=== PATIENT | female | born 1975 | race Caucasian/White ===

== ENCOUNTER 2016-09-17 16:07 | Emergency (ER) | payer OTHER ==
[2016-09-17 16:42] VITALS: BP 134/90
--- NOTE | 2016-09-17 16:42 | UC ---
Respiratory Complaint HPI - HPI Summary HPI Summary: Hx of diabetes, she presents with a week for cough, fever, chills, sinus pressure headache and dizziness. patient states she is normally tachycardic, and takes metoprolol for it - History of Current Complaint Stated Complaint: COUGH/SORE THROAT/CONGESTION Time Seen by Provider: 09/17/16 16:27 Hx Obtained From: Patient Hx Last Menstrual Period: 11/20/15 ?: No Onset/Duration: Sudden Onset, Lasting Days Timing: Constant Severity Initially: Moderate Severity Currently: Moderate Character: Cough: Productive Aggravating Factors: Deep Breaths, Recumbent Position Alleviating Factors: Nothing Associated Signs And Symptoms: Positive: Fever, Chills, Wheezing, URI, Nasal Congestion - Risk Factors Pulmonary Embolism Risk Factors: Negative - Allergies/Home Medications Allergies/Adverse Reactions: Allergies Allergy/AdvReac Type Severity Reaction Status Date / Time Levofloxacin [From Levaquin] Allergy Hives Verified 09/17/16 16:42 Sulfa Antibiotics Allergy Vomiting Verified 09/17/16 16:42 PMH/Surg Hx/FS Hx/Imm Hx Previously Healthy: Yes Endocrine History Of: Reports: Diabetes - type 2 - Surgical History Surgical History: Yes Surgery Procedure, Year, and Place: , gallbladder removal, stents in her kidney for stones. - Family History Known Family History: Positive: Blood Disorder - several members with factor V Leiden - Social History Alcohol Use: None Substance Use Type: None Smoking Status (MU): Never Smoked Tobacco Review of Systems Constitutional: Fever, Fatigue Skin: Negative Eyes: Negative ENT: Sore Throat, Ear Ache, Nasal Discharge Respiratory: Cough Cardiovascular: Negative Gastrointestinal: Negative Genitourinary: Negative Motor: Negative Neurovascular: Negative Musculoskeletal: Negative Neurological: Headache Psychological: Negative All Other Systems Reviewed And Are Negative: Yes Physical Exam Triage Information Reviewed: Yes Appearance: Well-Nourished, Ill-Appearing, Pain Distress Vital Signs Reviewed: Yes Eye Exam: Normal Eyes: Positive: Conjunctiva Clear ENT: Positive: Pharyngeal erythema, Nasal congestion, TM bulging Dental Exam: Normal Neck exam: Normal Neck: Positive: Supple, Nontender, No Lymphadenopathy Respiratory Exam: Normal Respiratory: Positive: Chest non-tender, Lungs clear, Normal breath sounds Cardiovascular Exam: Normal Cardiovascular: Positive: RRR, No Murmur, Pulses Normal Abdominal Exam: Normal Abdomen Description: Positive: Nontender, No Organomegaly, Soft Bowel Sounds: Positive: Present Musculoskeletal Exam: Normal Musculoskeletal: Positive: Strength Intact, ROM Intact, No Edema Neurological Exam: Normal Neurological: Positive: Alert Psychological Exam: Normal Skin Exam: Normal Respiratory Course/Dx - Course Course Of Treatment: hx obtained, exam performed, meds reviewed and treated for sinusitis - Differential Dx/Diagnosis Differential Diagnosis/HQI/PQRI: Asthma, Bronchitis, Influenza, Laryngitis, Sinusitis Provider Diagnoses: sinusitis. cough Discharge - Discharge Plan Condition: Stable Disposition: HOME Patient Education Materials: Sinusitis (ED) Additional Instructions: take the medication as prescribed. increase fluid intake and get plenty of rest.
== END 2016-09-17 17:11 | disposition home or self-care (01) ==
LOC: UCCORT 16:07
DX: J32.9 Chronic sinusitis, unspecified (principal); R05 Cough; Z88.1 Allergy status to other antibiotic agents; Z88.2 Allergy status to sulfonamides
CPT/HCPCS: 99212; G0463

== ENCOUNTER 2016-11-05 15:32 | Emergency (ER) | payer OTHER ==
[2016-11-05 16:57] VITALS: BP 112/74
--- NOTE | 2016-11-05 17:35 | UC ---
Throat Pain/Nasal Karlos HPI - HPI Summary HPI Summary: complaint of nasal congestion and cough that started approx over 1 days ago cough has worsened productive cough sore throat from coughing intermittent headaches has felt feverish and chills several times but hasn't checked her temp took some nyquil with some relief - History of Current Complaint Chief Complaint: UCGeneralIllness Stated Complaint: COUGH/CONGESTION Time Seen by Provider: 11/05/16 17:29 Hx Obtained From: Patient Hx Last Menstrual Period: 10/18/16 - Allergies/Home Medications Allergies/Adverse Reactions: Allergies Allergy/AdvReac Type Severity Reaction Status Date / Time Levofloxacin [From Levaquin] Allergy Hives Verified 11/05/16 16:57 Sulfa Antibiotics Allergy Vomiting Verified 11/05/16 16:57 Home Medications: Home Medications Metoprolol Tartrate TAB* [Lopressor TAB*] 25 mg PO DAILY 11/05/16 [History Confirmed 11/05/16] PMH/Surg Hx/FS Hx/Imm Hx Previously Healthy: Yes Endocrine History Of: Reports: Diabetes - type 2 - Surgical History Surgical History: Yes Surgery Procedure, Year, and Place: , gallbladder removal, stents in her kidney for stones. TONSILECTOMY - Family History Known Family History: Positive: Blood Disorder - several members with factor V Leiden Negative: Cardiac Disease, Hypertension - Social History Occupation: Employed Full-time Lives: With Family Alcohol Use: Rare Substance Use Type: None Smoking Status (MU): Never Smoked Tobacco Review of Systems Constitutional: Chills Skin: Negative Eyes: Negative ENT: Sore Throat, Nasal Discharge Respiratory: Cough Cardiovascular: Negative Gastrointestinal: Negative Genitourinary: Negative Motor: Negative Neurovascular: Negative Musculoskeletal: Negative Neurological: Negative Psychological: Negative All Other Systems Reviewed And Are Negative: Yes Physical Exam Triage Information Reviewed: Yes Appearance: No Pain Distress, Well-Nourished Vital Signs: Initial Vital Signs Temp 97.8 F 11/05/16 16:52 Pulse 99 11/05/16 16:52 Resp 16 11/05/16 16:52 BP 112/74 11/05/16 16:52 Pulse Ox 100 11/05/16 16:52 Vital Signs Reviewed: Yes Eyes: Positive: Conjunctiva Clear ENT: Positive: Pharyngeal erythema, Nasal congestion, Nasal drainage, TM bulging. Negative: TM red, Tonsillar swelling, Tonsillar exudate Neck: Positive: No Lymphadenopathy Respiratory: Positive: Lungs clear, Normal breath sounds, No respiratory distress, No accessory muscle use Cardiovascular: Positive: RRR, No Murmur, Pulses Normal Abdomen Description: Positive: Nontender, Soft Bowel Sounds: Positive: Present Musculoskeletal: Positive: No Edema Neurological: Positive: Alert Psychological Exam: Normal Skin Exam: Normal Throat Pain/Nasal Course/Dx - Course Course Of Treatment: exam completed. will treat with antibiotic for secondary infection in sinuses and bronchitiis - Differential Dx/Diagnosis Differential Diagnosis/HQI/PQRI: Sinusitis, URI, Other - bronchitis Provider Diagnoses: sinusitis, bronchitis Discharge - Discharge Plan Condition: Stable Disposition: HOME Prescriptions: Azithromycin TAB* [Zithromax TAB (Z-SULTANA) 250 mg #6 tabs] 2 tab PO .TODAY, THEN 1 DAILY #1 sultana Benzonatate CAP* [Tessalon 100 MG CAP*] 100 mg PO TID PRN #30 cap PRN Reason: Cough Patient Education Materials: Acute Bronchitis (ED), Sinusitis (ED) Forms: *Work Release Referrals: Delgado Marin MD [Primary Care Provider] - Additional Instructions: Please take antibiotic as directed Increase fluids and rest Take acetaminophen or ibuprofen for fever or pain Please review your discharge instructions. If your symptoms do not improve please call your primary care provider or return to urgent care.
== END 2016-11-05 17:46 | disposition home or self-care (01) ==
LOC: UCCORT 15:32
DX: J32.9 Chronic sinusitis, unspecified (principal); J40 Bronchitis, not specified as acute or chronic; Z88.1 Allergy status to other antibiotic agents; Z88.2 Allergy status to sulfonamides; Z87.442 Personal history of urinary calculi; Z90.49 Acquired absence of other specified parts of digestive tract
CPT/HCPCS: 99212; G0463

== ENCOUNTER 2016-12-25 14:50 | Emergency (ER) | payer OTHER ==
[2016-12-25 15:14] VITALS: BP 120/79
--- NOTE | 2016-12-25 15:55 | UC ---
Respiratory Complaint HPI - HPI Summary HPI Summary: The patient comes in today for: 1. Sinus pressure, cough: Onset: 3 days ago. Palliative/provocative: NyQuil helps. Quality: Pressure Region: Frontal and maxillary Severity: 5/10 Time: Constant. Associated symptoms: Rhinitis: Green material Cough: productive of green material. * - History of Current Complaint Chief Complaint: UCRespiratory Stated Complaint: FEVER,CONGESTION,HEADACHE Time Seen by Provider: 12/25/16 15:51 Hx Obtained From: Patient Hx Last Menstrual Period: 12/09/16 - Allergies/Home Medications Allergies/Adverse Reactions: Allergies Allergy/AdvReac Type Severity Reaction Status Date / Time Levofloxacin [From Levaquin] Allergy Hives Verified 12/25/16 15:14 Sulfa Antibiotics Allergy Vomiting Verified 12/25/16 15:14 PMH/Surg Hx/FS Hx/Imm Hx Previously Healthy: No Endocrine History: Diabetes Cardiovascular History: Cardiac Disease - "My heart beats too fast." - Surgical History Surgical History: Yes Surgery Procedure, Year, and Place: , gallbladder removal, stents in her kidney for stones. TONSILECTOMY - Family History Known Family History: Positive: Diabetes, Blood Disorder - several members with factor V Leiden Negative: Cardiac Disease, Hypertension - Social History Occupation: Employed Part-time Alcohol Use: None Substance Use Type: None Smoking Status (MU): Never Smoked Tobacco Review of Systems Constitutional: Fever - 1 Skin: Negative Eyes: Negative ENT: Negative - 101 this morning., Nasal Discharge Respiratory: Cough Cardiovascular: Negative Gastrointestinal: Negative Genitourinary: Negative All Other Systems Reviewed And Are Negative: Yes Physical Exam Triage Information Reviewed: Yes Appearance: Well-Appearing, No Pain Distress, Well-Nourished Vital Signs: Initial Vital Signs Temp 100.1 F 12/25/16 15:09 Pulse 102 12/25/16 15:09 Resp 16 12/25/16 15:09 BP 120/79 12/25/16 15:09 Pulse Ox 98 12/25/16 15:09 Vital Signs Reviewed: Yes Eyes: Positive: Conjunctiva Clear. Negative: Discharge ENT: Positive: Hearing grossly normal, Other: - Positive tenderness to palpation of the frontal and maxillary sinuses bilaterally.. Negative: Pharyngeal erythema, Nasal congestion, Nasal drainage, TM bulging, TM dull, TM red, Tonsillar swelling, Tonsillar exudate Dental: Negative: Gross Decay/Caries @, Dental Fracture @ Neck: Positive: Supple, Nontender, No Lymphadenopathy. Negative: Nuchal Rigidity Respiratory: Positive: Chest non-tender, Lungs clear, No respiratory distress, No accessory muscle use. Negative: Crackles, Wheezing Cardiovascular: Positive: RRR, No Murmur Abdomen Description: Positive: Nontender, No Organomegaly, Soft. Negative: Distended, Guarding Musculoskeletal: Positive: Strength Intact, ROM Intact, No Edema Neurological: Positive: Alert, Muscle Tone Normal Psychological: Positive: Age Appropriate Behavior, Consolable Skin: Negative: rashes, breakdown UC Diagnostic Evaluation - Laboratory O2 Sat by Pulse Oximetry: 98 Respiratory Course/Dx - Differential Dx/Diagnosis Differential Diagnosis/HQI/PQRI: Asthma, Bronchitis, Laryngitis, Sinusitis Provider Diagnoses: Sinusitis Discharge - Discharge Plan Condition: Stable Disposition: HOME Patient Education Materials: Sinusitis (ED) Forms: *Work Release Referrals: Delgado Marin MD [Primary Care Provider] - 1 Week (Please see your primary care provider in about one to two weeks to see how well you are doing. If you get worse, please be seen sooner.)
== END 2016-12-25 16:09 | disposition home or self-care (01) ==
LOC: UCCORT 14:50
DX: J32.9 Chronic sinusitis, unspecified (principal); E11.9 Type 2 diabetes mellitus without complications; Z90.49 Acquired absence of other specified parts of digestive tract; Z87.442 Personal history of urinary calculi; Z88.1 Allergy status to other antibiotic agents; Z88.2 Allergy status to sulfonamides
CPT/HCPCS: 99212; G0463

== ENCOUNTER 2016-12-29 11:09 | Emergency (ER) | payer OTHER ==
[2016-12-29 11:42] VITALS: BP 107/80
[2016-12-29] MEDS ORDERED: DOXYcycline CAP(*) 100 MG PO ONE (12:41)
--- NOTE | 2016-12-29 12:50 | UC ---
Epistaxis Nasal HPI - HPI Summary HPI Summary: Nasal swelling and pain with large painful lumps under chin and in neck. Red line on R face extending to chin. Feels pain and pressure in maxillary area and in jaw. - History of Current Complaint Chief Complaint: UCGeneralIllness Stated Complaint: SWOLLEN JAW /FACE Time Seen by Provider: 12/29/16 12:22 Hx Obtained From: Patient Hx Last Menstrual Period: 12/09/16 ?: No Onset/Duration: Gradual Onset, Lasting Days Timing: Constant Severity Initially: Mild Severity Currently: Moderate Aggravating Factor(s): Nothing Alleviating Factor(s): Nothing Associated Signs And Symptoms: Positive: Negative - Allergies/Home Medications Allergies/Adverse Reactions: Allergies Allergy/AdvReac Type Severity Reaction Status Date / Time Levofloxacin [From Levaquin] Allergy Hives Verified 12/25/16 15:14 Sulfa Antibiotics Allergy Vomiting Verified 12/25/16 15:14 PMH/Surg Hx/FS Hx/Imm Hx Endocrine History: Diabetes Cardiovascular History: Congestive Heart Failure - from viral infection - Surgical History Surgical History: Yes Surgery Procedure, Year, and Place: , gallbladder removal, stents in her kidney for stones. TONSILECTOMY - Family History Known Family History: Positive: Diabetes, Blood Disorder - several members with factor V Leiden Negative: Cardiac Disease, Hypertension - Social History Lives: With Family Alcohol Use: None Substance Use Type: None Smoking Status (MU): Never Smoked Tobacco Review of Systems Constitutional: Fatigue Skin: Negative Eyes: Negative ENT: Nasal Discharge, Other - nasal pain Respiratory: Negative Cardiovascular: Negative Gastrointestinal: Negative Genitourinary: Negative Motor: Negative Neurovascular: Negative Musculoskeletal: Negative Neurological: Negative Psychological: Negative All Other Systems Reviewed And Are Negative: Yes Physical Exam Triage Information Reviewed: Yes Appearance: Well-Appearing, Obese Vital Signs: Initial Vital Signs Temp 98.4 F 12/29/16 11:40 Pulse 109 12/29/16 11:40 Resp 16 12/29/16 11:40 BP 107/80 12/29/16 11:40 Pulse Ox 98 12/29/16 11:40 Vital Signs Reviewed: Yes Eye Exam: Normal Eyes: Positive: Conjunctiva Clear ENT: Positive: Pharynx normal, Nasal congestion, Other: - marked swelling in anterior nares with some crusting. Negative: Pharyngeal erythema, Tonsillar swelling - s/p tonsillectomy Dental Exam: Normal Dental: Negative: Percussion Tenderness @, Gross Decay/Caries @, Dental Fracture @ Neck: Positive: Enlarged Nodes @ - marked tender nodes in anterior cervical, submandibular areas Respiratory Exam: Normal Respiratory: Positive: Chest non-tender, Lungs clear, Normal breath sounds, No respiratory distress, No accessory muscle use Cardiovascular: Positive: Tachycardia Musculoskeletal Exam: Normal Neurological Exam: Normal Neurological: Positive: Alert Psychological Exam: Normal Skin Exam: Other - red streak from R nasolabial fold down to R chin Epistaxis Nasal Course/Dx - Differential Dx/Diagnosis Provider Diagnoses: nasal cellulitis with lymphangitic streaking Discharge - Discharge Plan Condition: Stable Disposition: HOME Prescriptions: DOXYcycline CAP(*) [DOXYcycline 100MG CAP(*)] 100 mg PO BID #14 cap Patient Education Materials: Cellulitis (ED) Forms: *Work Release Referrals: Delgado Marin MD [Primary Care Provider] - 5 Days Additional Instructions: As we discussed, you should be seen in the emergency department for any high fevers, worsening, severe headache, or dizziness. If you do not have some improvement by tomorrow, please return here for a recheck. Stop your augmentin, as it is not helping your sinus symptoms and clearly does not help with the bacteria causing your nasal infection.
== END 2016-12-29 12:54 | disposition home or self-care (01) ==
LOC: UCCORT 11:09
DX: J34.0 Abscess, furuncle and carbuncle of nose (principal); Z88.2 Allergy status to sulfonamides
CPT/HCPCS: 87070; 87077; 99212; A9270-GY; G0463

== ENCOUNTER 2017-03-30 20:11 | Emergency (ER) | payer OTHER ==
[2017-03-30 20:25] VITALS: BP 104/67
--- NOTE | 2017-03-30 20:35 | UC ---
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 PT STATES A PORTION OF TOOTH REMAINS NEAR SITE AND SHE HAS AN ALLERGY TO KEFLEX WHICH WAS THE ABX PRESCRIBED. PT'S DENTIST IS OUT OF TOWN." She did not take the keflex. given ibuprofen that helps pain initially and then wears off. feels something soft and jagged on gum line. no fevers. has some pain over left cheek. PMH of CHF at age 30 d/t rheumatic heart disease from strep. IDDM. watches blood sugars closely. no fevers. no SOB. - History of Current Complaint Chief Complaint: UCDentalProblem Stated Complaint: DENTAL PAIN S/P TOOTH EXTRACTION Time Seen by Provider: 03/30/17 20:16 Hx Last Menstrual Period: 03/25/17 - Allergies/Home Medications Allergies/Adverse Reactions: Allergies Allergy/AdvReac Type Severity Reaction Status Date / Time Levofloxacin [From Levaquin] Allergy Hives Verified 03/30/17 20:25 Cephalexin AdvReac Vomiting Verified 03/30/17 20:25 Sulfa Antibiotics AdvReac Vomiting Verified 03/30/17 20:25 Home Medications: Home Medications Ibuprofen TAB* [Motrin TAB* 800 MG] 800 mg PO Q6H PRN 03/30/17 [History Confirmed 03/30/17] PMH/Surg Hx/FS Hx/Imm Hx Endocrine History: Diabetes Cardiovascular History: Cardiac Disease, Congestive Heart Failure - rheumatic heart disease d/t strep. age 30 - Surgical History Surgical History: Yes Surgery Procedure, Year, and Place: , gallbladder removal, stents in her kidney for stones. TONSILECTOMY. PARATHYROIDECTOMY--2004 - Family History Known Family History: Positive: Diabetes, Blood Disorder - several members with factor V Leiden Negative: Cardiac Disease, Hypertension - Social History Alcohol Use: None Substance Use Type: None Smoking Status (MU): Never Smoked Tobacco Review of Systems Constitutional: Negative Skin: Negative Eyes: Negative ENT: Dental Pain Respiratory: Negative Cardiovascular: Negative Gastrointestinal: Negative Genitourinary: Negative Motor: Negative Neurovascular: Negative Musculoskeletal: Negative Neurological: Negative Psychological: Negative Is Patient Immunocompromised?: No All Other Systems Reviewed And Are Negative: Yes Physical Exam Triage Information Reviewed: Yes Appearance: Well-Appearing, No Pain Distress, Well-Nourished - very pleasant, reliable historian. Vital Signs: Initial Vital Signs Temp 97.6 F 03/30/17 20:16 Pulse 69 03/30/17 20:16 Resp 16 03/30/17 20:16 BP 104/67 03/30/17 20:16 Pulse Ox 100 03/30/17 20:16 Vital Signs Reviewed: Yes Eye Exam: Normal ENT: Positive: Pharynx normal, TMs normal Dental: Positive: Other: - left upper molar extracted. no erythema or abscess. there is white soft tissue protruding from extraction site. no bleeding. Neck exam: Normal Neck: Positive: Supple, Nontender, No Lymphadenopathy Respiratory Exam: Normal Respiratory: Positive: Lungs clear, Normal breath sounds Cardiovascular Exam: Normal Cardiovascular: Positive: RRR, No Murmur, Pulses Normal Abdomen Description: Positive: Nontender, Soft Musculoskeletal Exam: Normal Neurological Exam: Normal Psychological Exam: Normal Skin Exam: Normal Dental Complaint Course/Dx - Course Course Of Treatment: advised to watch blood sugars closely. not on OCP. - Differential Dx/Diagnosis Differential Diagnosis/Dx: Dental Abscess, Dental Caries, Fractured Tooth, Odontogenic Pain Provider Diagnoses: dental pain, s/p extraction Discharge - Discharge Plan Condition: Stable Disposition: HOME Prescriptions: Amoxicillin PO (*) [Amoxicillin 875 MG (*)] 875 mg PO BID #20 tab Patient Education Materials: Dental Abscess (ED) Referrals: Delgado Marin MD [Primary Care Provider] - Additional Instructions: Make sure to take a probiotic daily while on antibiotics to help prevent a potential complication of antibiotic use called c diff. Some well known brands that can be found OTC are florastor, align and colon health. Make sure to complete the entire prescription unless advised otherwise by your health care provider. I don't necessarily think you have an infection. The antibiotic is prophylactic and also to help prevent heart valve disease, especially in light of your history of rheumatic heart disease. Follow up with your dentist in 2 days. If you develop fever, shortness of breath or elevated blood sugars or generalized not feeling well, make sure to follow up with your PCP.
[2017-03-30] MEDS ORDERED: Amoxicillin PO (*) 500 MG CAP PO ONE (20:36)
== END 2017-03-30 20:47 | disposition home or self-care (01) ==
LOC: UCCORT 20:11
DX: K08.89 Other specified disorders of teeth and supporting structures (principal); I50.9 Heart failure, unspecified; I09.9 Rheumatic heart disease, unspecified; E11.8 Type 2 diabetes mellitus with unspecified complications; Z98.818 Other dental procedure status
CPT/HCPCS: 99212; A9270-GY; G0463

== ENCOUNTER 2017-07-23 09:12 | Emergency (ER) | payer OTHER ==
[2017-07-23 09:22] VITALS: BP 117/76
--- OUTSIDE RECORDS SUMMARY | 2017-07-23 09:42 | XMS REPORT ---
:1975 External Reference #:[id number] Author Organization [facility] Address [address] [place] [address] Phone [phone] Care Team Providers Name Role Phone Dom Singh M.D[facility] 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 Problems Description No Information Family History Date Family Member(s) Problem(s) Comments General Diabetes Mellitus Type 2 General Prostate Cancer General Heart Disease Father Prostate Cancer Father Heart Disease Father Diabetes Mellitus Type 2 Mother No Current Problems Children 3 Siblings 2 Grandchildren None Social History Type Date Description Comments Marital Status Legal Status: Work Status Full-Time Employment ETOH Use Denies alcohol use Smoking Patient has never smoked Recreational Drug Use Denies Drug Use Daily Caffeine Consumes on average 1 cup of regular coffee per day Allergies, Adverse Reactions, Alerts Date Description Reaction Status Severity Comments 06/25/2017 Levofloxacin active 06/25/2017 Canagliflozin active Medications Medication Date Status Form Strength Qnty SIG Indications Ordering Provider Metformin HCL 06/25/20 Active Tablets 1000mg 60tabs 1 Tab PO E11.9 Francisco, 17 bid Dom Rockwell M.D. Lisinopril 06/25/20 Active Tablets 5mg 30tabs 1 by I10 Francisco, 17 mouth Dom Rockwell, every day M.D. E11.9 Freestyle Test 06/25/2017 Active Strips N/A 180units Use 5-6 E11.9 Francisco, Times Daily Dom Rockwell, To Check BG M.D. BD Insulin 06/25/2017 Active Misc 30G X 90units Use To Give E11.9 Francisco , Syringe Ultra 1/2" 1 Insulin SQ Dom M., Fine/1ML/30G X ML 3 Times M.D. 1/2" Daily Metoprolol Active Tablets 25mg 30tabs 1 tab by I10 Francisco, Tartrate mouth daily Ahmad M., M.D. Ibuprofen Active Tablets 800mg TK 1 T PO Q Unknown 6-8 H prn Novolog Active Solution 100Unit 30ml place 100 E11.9 Francisco, /ML units sq Ahmad M., daily M.D. Vital Signs Date Vital Result Comment 06/25/2017 BP Systolic 106 mmHg BP Diastolic 60 mmHg Height 64 inches 5'4" Weight 202.00 lb BMI (Body Mass Index) 34.7 kg/m2 Heart Rate 81 /min Body Temperature 97.7 F Respiratory Rate 16 /min Results Test Date Test Result H/L Range Note Laboratory test finding 06/25/2017 Hemoglobin A1c <pending> Laboratory test finding 06/25/2017 TSH, Ultrasenstive <pending> T4 Free - Thyroxine <pending> Laboratory test finding 06/25/2017 Calcium <pending> Procedures Date CPT Code Description Status 06/25/2017 35485 Visual Screening Test Completed 06/25/2017 48295 EKG Completed 06/25/2017 04088 Audiometry, Bekesy, Screening Completed Encounters Type Date Location Provider CPT E/M Dx Office Visit 06/25/2017 10:30[place] [address] E11.9 L20.9 J30.9 I10 E78.2 Z00.01 E21.5 Z30.8 E66.9 D68.51 Plan of Care Future Appointment(s):07/24/2017 10:00 am - Will Mcdaniel PA at [place] - [facility] Mcdaniel PAE11.9 Type 2 diabetes mellitus without complicationsNew Medication:Metformin HCL 1000 mgLisinopril 5 mgFreestyle Test N/ABD Insulin Syringe Ultra Fine/1ML/30G X 1/2" 30 G X 1/2" 1 MLComments:DIET AND EXERCISELOW GLUCOSE CARB/DIETF/U HGBA1C AT 3 MO INTERVALSDIET MANAGEMENT AT THIS TIME HAS INSULIN PUMPReferral:[facility], QwshvmjffesdpO00.9 Atopic dermatitis, unspecifiedComments:SKIN CARE INSTRUCTIONS LOTION OR BABY OIL 2-3 APPLICATION PER DAYUSE MOISTURIZING SOAPAVOID PROLONGED WATER EXPOSUREAVOID USING HOT WATER IN NHGLUFG60.9 Allergic rhinitis, unspecifiedComments:INCREASE PO FLUID USE ANTIHISTAMINE PRN SECOND HAND SMOKING [id number] Essential (primary) hypertensionNew Medication:Lisinopril 5 mgComments:CHECK BP TIW ( PRN)F/U LABDIET AND FLUID COUNSELING LOW SODIUM DIETWT LOSSF/U LABE78.2 Mixed hyperlipidemiaComments:DIET REVIEWED CONTINUE DIETWT LOSSF/U LAB FBWZ00.01 Encounter for general adult medical exam w abnormal findingsComments:GOOD NUTRITION /EXERCISEDENTAL/ FLOSSING/ SELF CAREDROWNING/ SUN DAFETYSEAT BELT/ DRIVING SAFETYSPORT BIKE/ HELMET USESPORTS/ INJURY PREVENTIONVIOLENCE PREVENTION/ GUN SAFETYPARENTING ADVICE"SAFE AT HOME "SEX EDUCATION/ COUNSELINGBREAST/ TESTICULAR SELF EXAMEDUCATION GOALS/ ACTIVITIESLIMIT TV/ INTERNETUSETOBACCO/ ALCOHOL/ DRUGS/ INHALANTSPEER REFUSAL SKILLSSOCIAL INTERACTIONFAMILY FUNCTIONINGSELF CONTROLDEPRESSION/ ANXIETYNEXT APPOINTMENTYEARLY PHYSICAL WELLNESS EVALUATION F/U W DYNAMICS AX DEVELOPER MKAVAULOR14.5 Disorder of parathyroid gland, unspecifiedComments:S/P PARTIAL PARATHYROIDECTOMYWILL REFER TO ENDOReferral:[facility], [id number] Encounter for other contraceptive managementComments:WILL REFER TO GYNReferral:[facility], construction director/Phys/MkjfoM45.9 Obesity, unspecifiedComments:DIET MANAGEMENTCOUNSELLINGAVOIDANCES [id number] Activated protein C resistanceComments:-REPORT ANY PROLONGED BLEEDING OR EXCESSIVE ECCHYMOSIS -REFER TO HEMATOLOGYReferral:[facility], Hematology & Oncology
--- NOTE | 2017-07-23 10:02 | UC ---
Abdominal Pain Female HPI - HPI Summary HPI Summary: abdominal pain x 6 hrs woke up this morning with RLQ abdominal pain no radiation of the pain, pain is sharp , 7 out of 10 + nausea, no vomiting, no diarrhea , no constipation, no urinary sx - History of Current Complaint Chief Complaint: UCAbdominalPain Stated Complaint: LOWER RIGHT ABD PAIN Time Seen by Provider: 07/23/17 09:47 Hx Obtained From: Patient Hx Last Menstrual Period: 07/09/17 ?: No Onset/Duration: Sudden Onset, Lasting Hours - 6 Timing: Constant Severity Initially: Moderate Severity Currently: Severe Pain Intensity: 5 Pain Scale Used: 0-10 Numeric Location: Discrete At: RLQ Radiates: No Character: Sharp Aggravating Factor(s): Movement Alleviating Factor(s): Nothing Associated Signs and Symptoms: Positive: Nausea. Negative: Fever, Cough, Chest Pain, Dizzy, Vaginal Bleeding, Vaginal Discharge, Vomiting, Diarrhea Allergies/Adverse Reactions: Allergies Allergy/AdvReac Type Severity Reaction Status Date / Time Levofloxacin [From [employer]] Allergy Hives Verified 07/23/17 09:22 Cephalexin AdvReac Vomiting Verified 07/23/17 09:22 Sulfa Antibiotics AdvReac Vomiting Verified 07/23/17 09:22 Home Medications: Home Medications Lisinopril TAB* [Prinivil TAB*] 5 mg PO DAILY 07/23/17 [History Confirmed ] metFORMIN* [Glucophage 1000 MG TAB *] 1,000 mg PO BID 07/23/17 [History Confirmed 07/23/17] PMH/Surg Hx/FS Hx/Imm Hx Endocrine History: Diabetes Cardiovascular History: Cardiac Disease GI/ History: Other - colitis Other GI/ History: colitis - Surgical History Surgical History: Yes Surgery Procedure, Year, and Place: , gallbladder removal, stents in her kidney for stones. TONSILECTOMY. PARATHYROIDECTOMY--2004 - Family History Known Family History: Positive: Diabetes, Blood Disorder - several members with factor V Leiden Negative: Cardiac Disease, Hypertension - Social History Alcohol Use: None Substance Use Type: None Smoking Status (MU): Never Smoked Tobacco Review of Systems Constitutional: Negative Skin: Negative Eyes: Negative ENT: Negative Respiratory: Negative Cardiovascular: Negative Gastrointestinal: Abdominal Pain, Nausea Genitourinary: Negative Is Patient Immunocompromised?: No All Other Systems Reviewed And Are Negative: Yes Physical Exam Triage Information Reviewed: Yes Appearance: Well-Appearing, Well-Nourished, Pain Distress Vital Signs: Initial Vital Signs Temp 98 F 07/23/17 09:19 Pulse 64 07/23/17 09:19 Resp 16 07/23/17 09:19 BP 117/76 07/23/17 09:19 Pulse Ox 100 07/23/17 09:19 Vital Signs Reviewed: Yes Eyes: Positive: Conjunctiva Clear ENT: Positive: Normal ENT inspection, Hearing grossly normal, Pharynx normal Neck: Positive: Supple, Nontender, No Lymphadenopathy Respiratory: Positive: Chest non-tender, Lungs clear, Normal breath sounds, No respiratory distress Cardiovascular: Positive: RRR, No Murmur, Pulses Normal Abdomen Description: Positive: Soft, Other: - RLQ tenderness. Negative: CVA Tenderness (R), CVA Tenderness (L), Distended, Guarding Bowel Sounds: Positive: Present Musculoskeletal Exam: Normal Skin Exam: Normal Abd Pain Female Course/Dx - Differential Dx/Diagnosis Provider Diagnoses: RLQ abdominal pain Discharge - Discharge Plan Condition: Fair Disposition: AGAINST MEDICAL ADVICE Patient Education Materials: Acute Abdominal Pain (ED) Referrals: Dom Singh MD [Primary Care Provider] - Additional Instructions: concern about acute appendicitis please go to [facility] ED for evaluation and treatment spoke with Dr. Jolley at [facility]
== END 2017-07-23 09:54 | disposition left against medical advice (07) ==
LOC: UCCORT 09:12
DX: R10.31 Right lower quadrant pain (principal); R11.0 Nausea; E11.9 Type 2 diabetes mellitus without complications; Z79.84 Long term (current) use of oral hypoglycemic drugs; I51.9 Heart disease, unspecified; Z90.49 Acquired absence of other specified parts of digestive tract; Z87.442 Personal history of urinary calculi; Z88.1 Allergy status to other antibiotic agents; Z88.2 Allergy status to sulfonamides
CPT/HCPCS: 99212; G0463

== ENCOUNTER 2017-10-17 18:17 | Emergency (ER) | payer OTHER ==
--- OUTSIDE RECORDS SUMMARY | 2017-10-17 18:57 | XMS REPORT ---
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 062805109 thrombophilia Problem Acute embolism and I82.622 Active thrombosis of deep veins of left upper extremity Problem Leiomyoma of D25.9 Active 66048998 uterus, unspecified Problem Excessive and N92.0 Active [id number] frequent menstruation with regular cycle ALLERGIES No Information ENCOUNTERS Encounter Location Date Diagnosis [facility] [address]YN [place], [place] [id number] [facility] [address], [place], [place] [id number] [facility] [address] [place], Oct, [place] [id number] [facility] [address], [address] [id number] [facility] [address], [address], [place] [id number] [facility] [address], [address], [place] [id number] [facility] [address], [address], [place] [id number] [facility] [address] Sep, Excessive and frequent OBGYN [facility], menstruation with regular [place] [id number] cycle N92.0 ; Leiomyoma of uterus, unspecified D25.9 ; Other primary thrombophilia D68.59 and Acute embolism and thrombosis of deep veins of left upper extremity I82.622 [place] [facility] [address] Sep, Excessive and frequent OBGYN [facility], menstruation with regular [place] [id number] cycle N92.0 ; Leiomyoma of uterus, unspecified D25.9 ; Other primary thrombophilia D68.59 and Acute embolism and thrombosis of deep veins of left upper extremity I82.622 [place] [facility] [address], [place], [place] [id number] [place] [facility] [address] Aug, [place] [id number] [place] [facility] [address] Aug, Excessive and frequent OBGYN [facility], menstruation with regular [place] [id number] cycle N92.0 ; Leiomyoma of uterus, unspecified D25.9 ; Other primary thrombophilia D68.59 and Acute embolism and thrombosis of deep veins of left upper extremity I82.622 [place] [facility] [address], [place], [place] [id number] [place] [facility] [address] Aug, [place] [id number] [place] [facility] [address] Aug, Excessive and frequent OBGYN [facility], menstruation with regular [place] [id number] cycle N92.0 and Leiomyoma of uterus, unspecified D25.9 [facility] [address] Jul, [place], [place] [id number] [facility] [address] Jul, [place], [place] [id number] [place] [facility] [address] Jul, Leiomyoma of uterus, OBGYN [facility], unspecified D25.9 and [place] [id number] Excessive and frequent menstruation with regular cycle N92.0 [place] [facility] [address] Jul, [place]BG[place], [place] [id number] IMMUNIZATIONS No Known Immunizations SOCIAL HISTORY Never Assessed REASON FOR REFERRAL FUNCTIONAL STATUS PLAN OF CARE VITAL SIGNS MEDICATIONS Unknown Medications PROCEDURES No Known procedures RESULTS No Results REASON FOR VISIT fever, cough and sore throat MEDICAL (GENERAL) HISTORY Type Description Date Medical History LUE DVT Medical History Factor V leiden mutation 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 per helatology 08-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 History 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 Medical History Type 2 diabetes Medical History CHF secondary to possible viral infection Medical History Ulcerative colitis Surgical History appendectomy 07/24/17 Surgical History D&C 07/23/17 Surgical History cholecystectomy 1994 Surgical History tonsillectomy 1992 Surgical History parathyroidectomy with partial thyroidectomy 2004 Surgical History 2012 Surgical History evacuation of 16 week with reatined 2013 products of conception Surgical History several stents and lithotripsy Surgical History wisdom teeth extraction 1993 Hospitalization History see above Hospitalization History childbirth 1998 Hospitalization History childbirth 2002 Hospitalization History CHF 2005 Hospitalization History ulcerative colitis 2006
--- OUTSIDE RECORDS SUMMARY | 2017-10-17 18:58 | XMS REPORT ---
:1975 External Reference #:[id number] Author Organization [facility] Address [address] [facility] [place] [address] Phone [phone] Care Team Providers Name Role Phone Dom Singh M.D. 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 Hydrocodone-A Active Tablets 10-325mg 90tabs 1-2 tab R10.30 Francisco, cetaminophen 018 by mouth Dom Rockwell, every 4 M.D. hours as needed M25.512 M79.602 Metformin HCL 06/25/2017 Active Tablets 1000mg 60tabs 1 tab by E11.9 Francisco, Ahmad mouth twice M., M.D. a day Lisinopril 06/25/2017 Active Tablets 5mg 30tabs 1 by mouth I10 Francisco, Ahmad every day M., M.D. E11.9 Freestyle Test 06/25/2017 Active Strips N/A 180units use 5-6 E11.9 Francisco, times daily Ahmad M., to check M.D. blood glucose BD Insulin 06/25/2017 Active Misc 30G X 90units Use To Give E11.9 Francisco , Syringe Ultra 1/2" 1 Insulin SQ Ahmad M., Fine/1ML/30G X ML 3 Times M.D. 1/2" Daily Metoprolol Active Tablets 25mg 30tabs 1 tab by I10 Francisco, Tartrate mouth daily Ahmad M., M.D. Ibuprofen Active Tablets 800mg TK 1 T PO Q Unknown 6-8 H prn Novolog Active Solution 100Uni 30ml place 100 E11.9 Francisco, t/ML units sq Ahmad M., daily M.D. 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 Diflucan 07/29/2017 - Hx Tablets 150mg 2tabs 1 tab by B35.4 Francisco, 08/06/2017 mouth today Ahmad M., and repeat M.D. in 1 week as needed Clotrimazole 07/29/2017 - Hx Cream 1% 45gm apply to B35.4 Francisco, 08/06/2017 affected Ahmad M., area three M.D. times a day Vital Signs Date Vital Result Comment 10/11/2017 BP Systolic 112 mmHg BP Diastolic 60 mmHg Height 64 inches 5'4" Weight 200.00 lb BMI (Body Mass Index) 34.3 kg/m2 Heart Rate 70 /min Respiratory Rate 16 /min 09/23/2017 BP Systolic 116 mmHg BP Diastolic 60 mmHg Height 64 inches 5'4" Weight 204.00 lb BMI (Body Mass Index) 35.0 kg/m2 Heart Rate 70 /min Respiratory Rate 16 /min 08/27/2017 BP Systolic 114 mmHg BP Diastolic 62 mmHg Height 64 inches 5'4" Weight 198.00 lb BMI (Body Mass Index) 34.0 kg/m2 Heart Rate 100 /min Body Temperature 97.5 F Respiratory Rate 16 /min 07/29/2017 BP Systolic 138 mmHg BP Diastolic 64 mmHg Height 64 inches 5'4" Weight 211.00 lb BMI (Body Mass Index) 36.2 kg/m2 Heart Rate 84 /min Respiratory Rate 16 /min 06/25/2017 BP Systolic 106 mmHg BP Diastolic 60 mmHg Height 64 inches 5'4" Weight 202.00 lb BMI (Body Mass Index) 34.7 kg/m2 Heart Rate 81 /min Body Temperature 97.7 F Respiratory Rate 16 /min Results Test Date Test Result H/L Range Note CBC 10/09/2017 White Blood Count 8.6 K/uL 3.1-10.7 1 Red Blood Count 4.51 M/uL 3.90-5.40 1 Hemoglobin 13.1 gm/dL 11.6-15.8 1 Hematocrit 39.4 % 36.0-46.1 1 Mean Cell Volume 87.4 fl 80.9-99.0 1 Mean Corpuscular HGB 29.0 pg 25.9-32.7 1 Mean Corpuscular HGB Conc 33.2 g/dL 30.8-34.3 1 Platelet Count 230 K/uL 155-360 1 Red Cell Distri Width %CV 14.4 % 11.7-14.4 1 Mean Platelet Volume 11.3 fL 8.9-12.4 1 Glycohemoglobin A1c 10/09/2017 Glycohemoglobin (A1c) 7.7 % High 4.2-6.3 1 , 2 eAG 174 mg/dL 1 CBC 10/08/2017 White Blood Count 9.7 K/uL 3.1-10.7 1 Red Blood Count 4.66 M/uL 3.90-5.40 1 Hemoglobin 13.7 gm/dL 11.6-15.8 1 Hematocrit 40.6 % 36.0-46.1 1 Mean Cell Volume 87.1 fl 80.9-99.0 1 Mean Corpuscular HGB 29.4 pg 25.9-32.7 1 Mean Corpuscular HGB Conc 33.7 g/dL 30.8-34.3 1 Platelet Count 205 K/uL 155-360 1 Red Cell Distri Width %CV 14.2 % 11.7-14.4 1 Mean Platelet Volume 10.4 fL 8.9-12.4 1 Protime 10/08/2017 Protime 14.4 seconds 12.0-14.4 1 Inr 1.1 0.9-1.1 1, 3 Laboratory test finding 10/07/2017 Urine HCG (Qualitative) NEGATIVE Negative 4, 5 CBS W/Automated Diff 09/02/2017 White Blood Count 10.1 K/uL 3.1-10.7 6 Red Blood Count 4.56 M/uL 3.90-5.40 6 Hemoglobin 13.3 gm/dL 11.6-15.8 6 Hematocrit 41.0 % 36.0-46.1 6 Mean Cell Volume 89.9 fl 80.9-99.0 6 Mean Corpuscular HGB 29.2 pg 25.9-32.7 6 Mean Corpuscular HGB Conc 32.4 g/dL 30.8-34.3 6 Platelet Count 334 K/uL 155-360 6 Red Cell Distri Width SD 47.4 fl High 3-47 6 Red Cell Distri Width %CV 14.9 % High 11.7-14.4 6 Mean Platelet Volume 11.9 fL 8.9-12.4 6 Neut% 52.6 % 40.4-72.8 6 Lymph % 37.1 % 20.0-42.0 6 [place] % 7.1 % 4.3-13.2 6 Eo% 2.8 % 0.0-6.6 6 Bas% 0.4 % 0.0-1.1 6 Neut# 5.29 K/uL 1.8-7.0 6 Lymph # 3.73 K/uL 1.0-4.0 6 [place] # 0.71 K/uL 0.3-0.9 6 Eos # 0.28 K/uL 0.0-0.5 6 Baso # 0.04 K/uL 0.0-0.1 6 Iron-Tibc-%Sat 09/02/2017 Serum Iron 51 g/dL 50-170 6 Total Iron Binding Capacity 347 g/dL 250-450 6 Transferrin %Saturation 15 % 12-57 6 Vitamin B12 And Folate 09/02/2017 Vitamin B12 253 pg/mL 193-986 6 Folic Acid 7.2 ng/mL 3.1-17.5 6 Laboratory test finding 09/02/2017 Ferritin 96 ng/mL 8-252 6 Comprehensive Metabolic Panel 09/02/2017 Glucose 133 mg/dL High 74-106 6 BUN 10 mg/dL 7-18 6 Creatinine 1.0 mg/dL 0.6-1.3 6 Glom Filtration Rate, Estimate >60 mL/min >60 6 If >60 mL/min >60 6, 7 BUN/Creat 10.0 ratio 6 Sodium 139 mmol/L 136-145 6 Potassium 4.1 mmol/L 3.5-5.1 6 Chloride 109 mmol/L High 98-107 6 Carbon Dioxide 24 mmol/L 21-32 6 Anion Gap 6 mEq/L Low 8-16 6 Calcium 9.1 mg/dL 8.5-10.1 6 Total Protein 8.0 g/dL 6.4-8.2 6 Albumin 3.7 g/dL 3.4-5.0 6 Globulin 4.3 g/dL 1.9-4.3 6 Alb/Glob 0.9 ratio 6 Bilirubin,Total 0.2 mg/dL 0.2-1.0 6 Sgot/Ast 11 U/L Low 15-37 6, 8 SGPT/Alt 23 U/L 12-78 6 Alkaline Phosphatase 82 U/L 45-117 6 Laboratory test finding 08/28/2017 C. Difficile Toxin B Negative for tox 9 By PCR <SEE NOTE> Type And Screen 08/07/2017 Patient Blood Type A POS 10 Antibody Screen Negative Negative 10 Comprehensive Metabolic Panel 08/07/2017 Glucose 185 mg/dL High 74-106 10 BUN 8 mg/dL 7-18 10 Creatinine 1.0 mg/dL 0.6-1.3 10 Glom Filtration Rate, Estimate >60 mL/min >60 10 If >60 mL/min >60 10, 11 BUN/Creat 8.0 ratio 10 Sodium 139 mmol/L 136-145 10 Potassium 3.9 mmol/L 3.5-5.1 10 Chloride 107 mmol/L 98-107 10 Carbon Dioxide 27 mmol/L 21-32 10 Anion Gap 5 mEq/L Low 8-16 10 Calcium 9.0 mg/dL 8.5-10.1 10 Total Protein 8.6 g/dL High 6.4-8.2 10 Albumin 3.8 g/dL 3.4-5.0 10 Globulin 4.8 g/dL High 1.9-4.3 10 Alb/Glob 0.8 ratio 10 Bilirubin,Total 0.5 mg/dL 0.2-1.0 10 Sgot/Ast 14 U/L Low 15-37 10, 12 SGPT/Alt 30 U/L 12-78 10 Alkaline Phosphatase 72 U/L 45-117 10 Laboratory test 08/07/2017 Act Partial 34.0 seconds 23.4-35.0 10, 13 finding Thrombo Time Protime 08/07/2017 Protime 17.9 seconds High 12.0-14.4 10 Inr 1.5 High 0.9-1.1 10, 14 CBS W/Automated Diff 08/07/2017 White Blood Count 6.9 K/uL 3.1-10.7 10 Red Blood Count 4.48 M/uL 3.90-5.40 10 Hemoglobin 13.1 gm/dL 11.6-15.8 10 Hematocrit 40.7 % 36.0-46.1 10 Mean Cell Volume 90.8 fl 80.9-99.0 10 Mean Corpuscular HGB 29.2 pg 25.9-32.7 10 Mean Corpuscular HGB Conc 32.2 g/dL 30.8-34.3 10 Platelet Count 321 K/uL 155-360 10 Red Cell Distri Width SD 46.5 fl 3-47 10 Red Cell Distri Width %CV 14.3 % 11.7-14.4 10 Mean Platelet Volume 11.0 fL 8.9-12.4 10 Neut% 59.4 % 40.4-72.8 10 Lymph % 28.8 % 20.0-42.0 10 [place] % 8.6 % 4.3-13.2 10 Eo% 2.6 % 0.0-6.6 10 Bas% 0.6 % 0.0-1.1 10 Neut# 4.12 K/uL 1.8-7.0 10 Lymph # 2.00 K/uL 1.0-4.0 10 [place]e # 0.60 K/uL 0.3-0.9 10 Eos # 0.18 K/uL 0.0-0.5 10 Baso # 0.04 K/uL 0.0-0.1 10 Urine Culture 08/07/2017 Urine Culture MIXED URETHRAL F <SEE NOTE> 10, 15 Quantity < 10,000 CFU/mL 10 Culture If Indicated 08/07/2017 Culture If Indicated CULTURE TO FOLLO 10, 16 Comment Comment <SEE NOTE> Source: URINE, CLEAN CAT <SEE NOTE> 10, 17 Urinalysis With Microscopic 08/07/2017 Urine Color BLOODY Yellow 10 Urine Clarity CLOUDY Clear 10 Urine Glucose - Dipstick NEGATIVE mg/dL Negative 10 Urine Bilirubin - Dipstick NEGATIVE Negative 10 Urine Ketone TRACE mg/dL High Negative 10 Urine Specific [place] >=1.030 1.010-1.030 10 Urine Blood LARGE Negative 10 Urine PH 5.0 Low 6.5-7.5 10 Urine Protein - Dipstick 100 mg/dL High Negative 10 Urine Urobilinogen - Dipstick 1.0 E.U./dL 0.2-1.0 10 Urine Nitrite - Dipstick POSITIVE Negative 10 Urine Leuk Esterase TRACE Negative 10 Urine RBC TNTC rbc/hpf High 0-2 10 Urine WBC 0-2 wbc/hpf 0-7 10 Urine Epithelial Cells FEW /lpf None Seen 10 Urine Calcium Oxalate Crystals FEW None Seen 10 Urine Bacteria MODERATE None Seen 10 Urine Amorph Sediment SMALL Negative 10 Source: URINE, CLEAN CAT <SEE 10, 18 NOTE> Methylenetetrahydrofolate Redu 07/30/2017 MTHFR,Dna Analysis (SEE NOTE) 19, 20 References (SEE NOTE) 19, 21 Factor II Dna Analysis 07/30/2017 Factor II, Dna Analysis (SEE NOTE) 19 , 22 Additional Information (SEE NOTE) 19, 23 Protein S Deficiency Profile 07/30/2017 Protein S,Functional 89 % 63-140 19, 24 Protein S,Total 93 % 60-150 19, 25 Protein S,Free 84 % 57-157 19, 26 Protein C Deficiency Profile 07/30/2017 Protein C,Functional 145 % 73- 180 19, 27 Protein C,Antigen 103 % 60-150 19 Laboratory test finding 07/30/2017 DRVVT Mix 54.3 sec High 0.0-47.0 19 DRVVT Confirm 1.3 ratio High 0.8-1.2 19 Lupus Anticoagulant Reflex 07/30/2017 PTT-LA 45.9 sec 0.0-51.9 19 DRVVT 70.5 sec High 0.0-47.0 19 Note: Comment: . 19, 28 Antithrombin III Panel 07/30/2017 Antithrombin III Activity 122 % 75-135 19, 29 Antithrombin III Antigen 105 % 72-124 19, 30 Anticardiolipin AB 07/30/2017 Anticardiolipin Igg < 9 GPLU/mL 0-14 19 , 31 Iga/Igg/Igm Anticardiolipin Igm, Quant 10 MPLU/mL 0-12 19, 32 Anticardiolipin Iga < 9 APLU/mL 0-11 19, 33 Laboratory test finding 07/30/2017 Sedimentation Rate 11 mm/hr 0-20 19, 34 Laboratory test finding 07/30/2017 Ferritin 23 ng/mL 8-252 19 Vitamin B12 And Folate 07/30/2017 Vitamin B12 320 pg/mL 193-986 19 Folic Acid 5.9 ng/mL 3.1-17.5 19 Iron-Tibc-%Sat 07/30/2017 Serum Iron 38 g/dL Low 50-170 19 Total Iron Binding Capacity 281 g/dL 250-450 19 Transferrin %Saturation 14 % 12-57 19 CBS W/Automated Diff 07/30/2017 White Blood Count 7.3 K/uL 3.1-10.7 19 Red Blood Count 4.46 M/uL 3.90-5.40 19 Hemoglobin 13.2 gm/dL 11.6-15.8 19 Hematocrit 40.2 % 36.0-46.1 19 Mean Cell Volume 90.1 fl 80.9-99.0 19 Mean Corpuscular HGB 29.6 pg 25.9-32.7 19 Mean Corpuscular HGB Conc 32.8 g/dL 30.8-34.3 19 Platelet Count 291 K/uL 155-360 19 Red Cell Distri Width SD 46.6 fl 3-47 19 Red Cell Distri Width %CV 14.5 % High 11.7-14.4 19 Mean Platelet Volume 11.2 fL 8.9-12.4 19 Neut% 55.3 % 40.4-72.8 19 Lymph % 31.8 % 20.0-42.0 19 Otoe % 7.7 % 4.3-13.2 19 Eo% 4.7 % 0.0-6.6 19 Bas% 0.5 % 0.0-1.1 19 Neut# 4.03 K/uL 1.8-7.0 19 Lymph # 2.32 K/uL 1.0-4.0 19 Otoe # 0.56 K/uL 0.3-0.9 19 Eos # 0.34 K/uL 0.0-0.5 19 Baso # 0.04 K/uL 0.0-0.1 19 Laboratory test finding 07/30/2017 Amylase 43 U/L 25-115 19 Lipase 143 U/L 56-289 19 Comprehensive Metabolic Panel 07/30/2017 Glucose 97 mg/dL 74-106 19 BUN 6 mg/dL Low 7-18 19 Creatinine 1.0 mg/dL 0.6-1.3 19 Glom Filtration Rate, Estimate >60 mL/min >60 19 If >60 mL/min >60 19, 35 BUN/Creat 6.0 ratio 19 Sodium 143 mmol/L 136-145 19 Potassium 3.6 mmol/L 3.5-5.1 19 Chloride 110 mmol/L High 98-107 19 Carbon Dioxide 25 mmol/L 21-32 19 Anion Gap 8 mEq/L 8-16 19 Calcium 8.7 mg/dL 8.5-10.1 19 Total Protein 7.7 g/dL 6.4-8.2 19 Albumin 3.4 g/dL 3.4-5.0 19 Globulin 4.3 g/dL 1.9-4.3 19 Alb/Glob 0.8 ratio 19 Bilirubin,Total 0.2 mg/dL 0.2-1.0 19 Sgot/Ast 28 U/L 15-37 19 SGPT/Alt 29 U/L 12-78 19 Alkaline Phosphatase 73 U/L 45-117 19 Laboratory test finding 07/29/2017 Sedimentation Rate 31 mm/hr High 0-20 36, 37 CBS W/Automated Diff 07/29/2017 White Blood Count 6.9 K/uL 3.1-10.7 36 Red Blood Count 4.24 M/uL 3.90-5.40 36 Hemoglobin 12.6 gm/dL 11.6-15.8 36 Hematocrit 37.9 % 36.0-46.1 36 Mean Cell Volume 89.4 fl 80.9-99.0 36 Mean Corpuscular HGB 29.7 pg 25.9-32.7 36 Mean Corpuscular HGB Conc 33.2 g/dL 30.8-34.3 36 Platelet Count 295 K/uL 155-360 36 Red Cell Distri Width SD 45.1 fl 3-47 36 Red Cell Distri Width %CV 14.3 % 11.7-14.4 36 Mean Platelet Volume 11.1 fL 8.9-12.4 36 Neut% 59.0 % 40.4-72.8 36 Lymph % 24.5 % 20.0-42.0 36 [place] % 11.4 % 4.3-13.2 36 Eo% 4.8 % 0.0-6.6 36 Bas% 0.3 % 0.0-1.1 36 Neut# 4.10 K/uL 1.8-7.0 36 Lymph # 1.70 K/uL 1.0-4.0 36 Otoe # 0.79 K/uL 0.3-0.9 36 Eos # 0.33 K/uL 0.0-0.5 36 Baso # 0.02 K/uL 0.0-0.1 36 Laboratory test finding 07/29/2017 Amylase 45 U/L 25-115 36 Lipase 204 U/L 56-289 36 Comprehensive Metabolic Panel 07/29/2017 Glucose 180 mg/dL High 74-106 36 BUN 5 mg/dL Low 7-18 36 Creatinine 0.9 mg/dL 0.6-1.3 36 Glom Filtration Rate, Estimate >60 mL/min >60 36 If >60 mL/min >60 36, 38 BUN/Creat 5.5 ratio 36 Sodium 142 mmol/L 136-145 36 Potassium 3.8 mmol/L 3.5-5.1 36 Chloride 106 mmol/L 98-107 36 Carbon Dioxide 29 mmol/L 21-32 36 Anion Gap 7 mEq/L Low 8-16 36 Calcium 8.4 mg/dL Low 8.5-10.1 36 Total Protein 6.8 g/dL 6.4-8.2 36 Albumin 3.1 g/dL Low 3.4-5.0 36 Globulin 3.7 g/dL 1.9-4.3 36 Alb/Glob 0.8 ratio 36 Bilirubin,Total 0.2 mg/dL 0.2-1.0 36 Sgot/Ast 19 U/L 15-37 36 SGPT/Alt 29 U/L 12-78 36 Alkaline Phosphatase 72 U/L 45-117 36 Laboratory test finding 07/29/2017 Sedimentation Rate <pending> Amylase <pending> Lipase <pending> Laboratory test finding 07/29/2017 Troponin-I < 0.015 ng/mL 36, 39 Comprehensive Metabolic 07/25/2017 Glucose 113 mg/dL High 74-106 40 Panel BUN 6 mg/dL Low 7-18 40 Creatinine 0.8 mg/dL 0.6-1.3 40 Glom Filtration Rate, Estimate >60 mL/min >60 40 If >60 mL/min >60 40, 41 BUN/Creat 7.5 ratio 40 Sodium 143 mmol/L 136-145 40 Potassium 3.9 mmol/L 3.5-5.1 40 Chloride 112 mmol/L High 98-107 40 Carbon Dioxide 26 mmol/L 21-32 40 Anion Gap 5 mEq/L Low 8-16 40 Calcium 7.4 mg/dL Low 8.5-10.1 40 Total Protein 5.7 g/dL Low 6.4-8.2 40 Albumin 2.6 g/dL Low 3.4-5.0 40 Globulin 3.1 g/dL 1.9-4.3 40 Alb/Glob 0.8 ratio 40 Bilirubin,Total 0.4 mg/dL 0.2-1.0 40 Sgot/Ast 25 U/L 15-37 40 SGPT/Alt 22 U/L 12-78 40 Alkaline Phosphatase 60 U/L 45-117 40 CBS W/Automated Diff 07/25/2017 White Blood Count 7.9 K/uL 3.1-10.7 40 Red Blood Count 3.79 M/uL Low 3.90-5.40 40 Hemoglobin 11.1 gm/dL Low 11.6-15.8 40 Hematocrit 34.1 % Low 36.0-46.1 40 Mean Cell Volume 90.0 fl 80.9-99.0 40 Mean Corpuscular HGB 29.3 pg 25.9-32.7 40 Mean Corpuscular HGB Conc 32.6 g/dL 30.8-34.3 40 Platelet Count 225 K/uL 155-360 40 Red Cell Distri Width SD 43.3 fl 3-47 40 Red Cell Distri Width %CV 13.6 % 11.7-14.4 40 Mean Platelet Volume 10.4 fL 8.9-12.4 40 Neut% 67.8 % 40.4-72.8 40 Lymph % 22.7 % 20.0-42.0 40 [place] % 8.9 % 4.3-13.2 40 Eo% 0.3 % 0.0-6.6 40 Bas% 0.3 % 0.0-1.1 40 Neut# 5.35 K/uL 1.8-7.0 40 Lymph # 1.79 K/uL 1.0-4.0 40 Otoe # 0.70 K/uL 0.3-0.9 40 Eos # 0.02 K/uL 0.0-0.5 40 Baso # 0.02 K/uL 0.0-0.1 40 Laboratory test finding 07/25/2017 Slide Review . 40, 42 Chlamydia/GC Cheryle 07/24/2017 Chlamydia Trachomatis, Negative Negative 40 Cheryle Neisseria Gonorrhoeae, Cheryle Negative Negative 40 Please note: (SEE NOTE) 40, 43 Affirm Vaginitis Panel 07/24/2017 Trichomonas vaginalis Negative [ Negative] 40 Gardnerella vaginalis Negative [Negative] 40 Muna species Negative [Negative] 40, 44 Laboratory test 07/24/2017 HPV High Risk - Results on file 40, 45 finding Alt Ref Lab Protime 07/24/2017 Protime 13.4 seconds 12.0-14.4 40 Inr 1.0 0.9-1.1 40, 46 CBS W/Automated Diff 07/24/2017 White Blood Count 7.0 K/uL 3.1-10.7 40 Red Blood Count 3.95 M/uL 3.90-5.40 40 Hemoglobin 11.6 gm/dL 11.6-15.8 40 Hematocrit 35.8 % Low 36.0-46.1 40 Mean Cell Volume 90.6 fl 80.9-99.0 40 Mean Corpuscular HGB 29.4 pg 25.9-32.7 40 Mean Corpuscular HGB Conc 32.4 g/dL 30.8-34.3 40 Platelet Count 240 K/uL 155-360 40 Red Cell Distri Width SD 44.0 fl 3-47 40 Red Cell Distri Width %CV 13.6 % 11.7-14.4 40 Mean Platelet Volume 11.1 fL 8.9-12.4 40 Neut% 61.8 % 40.4-72.8 40 Lymph % 27.9 % 20.0-42.0 40 [place] % 7.8 % 4.3-13.2 40 Eo% 2.4 % 0.0-6.6 40 Bas% 0.1 % 0.0-1.1 40 Neut# 4.33 K/uL 1.8-7.0 40 Lymph # 1.96 K/uL 1.0-4.0 40 Otoe # 0.55 K/uL 0.3-0.9 40 Eos # 0.17 K/uL 0.0-0.5 40 Baso # 0.01 K/uL 0.0-0.1 40 Laboratory test finding 07/24/2017 Magnesium 1.6 mg/dL Low 1.8-2.4 40 C-Reactive Protein,Quant 4.8 mg/L High <3.0 40 Comprehensive Metabolic Panel 07/24/2017 Glucose 117 mg/dL High 74-106 40 BUN 6 mg/dL Low 7-18 40 Creatinine 0.9 mg/dL 0.6-1.3 40 Glom Filtration Rate, Estimate >60 mL/min >60 40 If >60 mL/min >60 40, 47 BUN/Creat 6.6 ratio 40 Sodium 144 mmol/L 136-145 40 Potassium 3.9 mmol/L 3.5-5.1 40 Chloride 112 mmol/L High 98-107 40 Carbon Dioxide 29 mmol/L 21-32 40 Anion Gap 3 mEq/L Low 8-16 40 Calcium 7.6 mg/dL Low 8.5-10.1 40 Total Protein 6.0 g/dL Low 6.4-8.2 40 Albumin 2.7 g/dL Low 3.4-5.0 40 Globulin 3.3 g/dL 1.9-4.3 40 Alb/Glob 0.8 ratio 40 Bilirubin,Total 0.4 mg/dL 0.2-1.0 40 Sgot/Ast 13 U/L Low 15-37 40, 48 SGPT/Alt 21 U/L 12-78 40 Alkaline Phosphatase 63 U/L 45-117 40 Hemoglobin/Hematocrit 07/24/2017 Hemoglobin 11.8 gm/dL 11.6-15.8 40 Hematocrit 36.1 % 36.0-46.1 40 Ua RFX Micro & Culture II 07/23/2017 Urine Color YELLOW Yellow 49 Urine Clarity CLEAR Clear 49 Urine Glucose - Dipstick NEGATIVE mg/dL Negative 49 Urine Bilirubin - Dipstick NEGATIVE Negative 49 Urine Ketone NEGATIVE mg/dL Negative 49 Urine Specific [place] >=1.030 1.010-1.030 49 Urine Blood NEGATIVE Negative 49 Urine PH 6.0 Low 6.5-7.5 49 Urine Protein - Dipstick NEGATIVE mg/dL Negative 49 Urine Urobilinogen - Dipstick 0.2 E.U./dL 0.2-1.0 49 Urine Nitrite - Dipstick NEGATIVE Negative 49 Urine Leuk Esterase NEGATIVE Negative 49 Source: URINE, CLEAN CAT <SEE 49, 50 NOTE> CBS W/Automated Diff 07/23/2017 White Blood Count 8.5 K/uL 3.1-10.7 49 Red Blood Count 4.71 M/uL 3.90-5.40 49 Hemoglobin 13.8 gm/dL 11.6-15.8 49 Hematocrit 41.5 % 36.0-46.1 49 Mean Cell Volume 88.1 fl 80.9-99.0 49 Mean Corpuscular HGB 29.3 pg 25.9-32.7 49 Mean Corpuscular HGB Conc 33.3 g/dL 30.8-34.3 49 Platelet Count 338 K/uL 155-360 49 Red Cell Distri Width SD 43.4 fl 3-47 49 Red Cell Distri Width %CV 13.8 % 11.7-14.4 49 Mean Platelet Volume 10.8 fL 8.9-12.4 49 Neut% 57.3 % 40.4-72.8 49 Lymph % 33.7 % 20.0-42.0 49 [place] % 6.2 % 4.3-13.2 49 Eo% 2.4 % 0.0-6.6 49 Bas% 0.4 % 0.0-1.1 49 Neut# 4.87 K/uL 1.8-7.0 49 Lymph # 2.86 K/uL 1.0-4.0 49 [place] # 0.53 K/uL 0.3-0.9 49 Eos # 0.20 K/uL 0.0-0.5 49 Baso # 0.03 K/uL 0.0-0.1 49 CBC With Diff 06/25/2017 WBC 9.1 10*3/uL (4.1-11.0) RBC 5.04 10*6/uL (4.00-5.40) HGB 14.4 g/dL (12.0-16.0) HCT 45.3 % (36.0-47.0) MCV 89.7 fL (80.0-95.0) MCH 28.5 pg (27.0-32.0) MCHC 31.8 g/dL Low (32.0-36.0) RDW 15.0 % High (10.5-14.5) PLT 319 10*3/uL (150-450) MPV 9.7 fL (7.1-10.7) Neut % 60.8 % (35.0-75.0) Lymph % 29.8 % (16.0-52.0) [place] % 5.5 % (0.0-8.0) Eos % 2.9 % (0.0-5.0) Baso % 1.0 % (0.0-4.0) Neut # 5.5 10*3/uL (1.8-7.7) Lymph # 2.7 10*3/uL (1.2-4.8) [place] # 0.5 10*3/uL (0.0-0.8) Eos # 0.3 10*3/uL (0.0-0.5) Baso # 0.1 10*3/uL (0.0-0.2) CMP 06/25/2017 Sodium 141 mmol/L (136-145) Potassium 4.6 mmol/L (3.6-5.2) Chloride 103 mmol/L (100-108) Co2 27 mmol/L (22-31) Anion Gap 11 mmol/L (7-16) Urea Nitrogen 10 mg/dL (7-24) Creatinine 0.98 mg/dL (0.60-1.00) BUN/Creat Ratio 10.2 RATIO (10.0-20.0) Glucose 72 mg/dL (70-99) Total Protein 8.1 g/dL (6.4-8.2) Albumin 3.8 g/dL (3.5-4.6) Globulin 4.3 g/dL (2.7-4.3) Alb/Glob Ratio 0.9 RATIO Alkaline Phosphatase 91 U/L (45-117) Bilirubin,Total 0.4 mg/dL (0.0-1.0) Ast (Sgot) 14 U/L (11-39) Alt (SGPT) 25 U/L (12-78) GFR >60 ml/min/1.73m2 (>59) GFR ( Amer) >60 ml/min/1.73m2 (>59) GFR Interpretation <SEE NOTE> 51 Hemoglobin A1c 06/25/2017 Hemoglobin A1c @ 10.2 % High (4.0-6.0) Est Average Glucose 246 mg/dL 52 [place] Urine Albumin @ 06/25/2017 Albumin, Urine 3.33 mg/dL Creatinine,Urine 337.00 mg/dL Alb/Creatinine Ratio 9.9 ug/mg (0.0-29.9) Laboratory test finding 06/25/2017 TSH,Ultrasensitive @ 1.550 mIU/L ( 0.360-4.170) Free Thyroxine @ 1.19 ng/dL (0.76-1.46) Lipid 06/25/2017 Cholesterol @ 184 mg/dL (0-200) Triglyceride @ 93 mg/dL (30-200) HDL Cholesterol @ 54 mg/dL (>40) 53 Chol/HDL Ratio 3.4 RATIO 54 LDL Chol (Calc) 111 mg/dL (<130) 55 Laboratory test finding 06/25/2017 Calcium 8.8 mg/dL (8.4-10.2) Ionized Calcium 06/25/2017 Calcium Ionized 4.76 mg/dL (4.64-5.28) 56 1 EXCESSIVE BLEEDING;FIBROIDS [id number] 2 Elevated levels of HbA1c suggest the need for more aggressive treatment of glycemia. The [place] [employer] recommends that a primary goal of therapy should be a HbA1c of <7% and that physicians should re-evaluate the treatment regimen in patients with HbA1c values consistently >8%. 3 THERAPEUTIC INR RANGE: 2.0 - 3.0 DVT, Pulmonary embolus, prophylaxis against venous thrombosis or systemic embolization in high risk patients. 2.5 - 3.5 Mechanical heart valves 4 8:00 [facility] 10/08/17 [id number] 5 FIRST MORNING SPECIMENS GENERALLY CONTAIN THE HIGHEST CONCENTRATION OF HCG AND ARE RECOMMENDED FOR EARLY DETECTION OF . Method: Quidel QuickVue One-Step Immunoassay 6 Z86.718 D64.9 D68.69 7 Note: Persistent reduction for 3 months or more in an eGFR <60 mL/min/1.73 m2 defines CKD. Patients with eGFR values >/=60 mL/min/1.73 m2 may also have CKD if evidence of persistent proteinuria is present. The original MDRD equation for estimated GFR is not valid for patients less than 18 years of age. Additional information may be found at [email or web address]. 8 Values below the stated reference ranges of AST and ALT can be seen in normal populations. Clinical correlation is suggested. 9 Negative for toxigenic C. difficile by PCR 10 VAGINAL BLEEDING, SENT BY 11 Note: Persistent reduction for 3 months or more in an eGFR <60 mL/min/1.73 m2 defines CKD. Patients with eGFR values >/=60 mL/min/1.73 m2 may also have CKD if evidence of persistent proteinuria is present. The original MDRD equation for estimated GFR is not valid for patients less than 18 years of age. Additional information may be found at [email or web address]. 12 Values below the stated reference ranges of AST and ALT can be seen in normal populations. Clinical correlation is suggested. 13 Is patient on anticoagulants? Coumadin 14 THERAPEUTIC INR RANGE: 2.0 - 3.0 DVT, Pulmonary embolus, prophylaxis against venous thrombosis or systemic embolization in high risk patients. 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 Compound heterozygosity for the C677T and [id number] variants is unlikely to be of clinical significance, based on consensus of published reports. This combination of results, however, may be associated with increased risk for the development of hyperhomocysteinemia when the individual is deficient in folate, vitamin B6, or vitamin B12. A fasting homocysteine level should be measured. This genotype alone in the absence of hyperhomocysteinemia, does not increase risk of venous thrombosis, coronary artery disease or recurrent loss. However, hyperhomocysteinemia may also occur due to mutations in enzymes other than MTHFR that are involved in homocysteine metabolism, or arise due to acquired factors. In the evaluation of vascular and obstetric risk, consider measuring fasting homocysteine. Additional risk factors may be detected through systematic clinical laboratory analysis. 21 Methylenetetrahydrofolate reductase (MTHFR) is a sepulveda enzyme in the folate pathway and is responsible for the metabolism of homocysteine. There are two common variants in the MTHFR gene, c.655c>T (p.[id number]), referred to as C677T, and c.1286A>C (p.[id number]), referred to as [id number]. Individuals homozygous for C677T (two copies of the variant), have decreased activity of the MTHFR enzyme and a predisposition to hyperhomocysteinemia, particularly when deficient in folate. Hyperhomocysteinemia is a risk factor for venous thrombosis and coronary artery disease and is associated with an increased risk of open neural tube defects. The C677T variant does not independently increase risk of these conditions in the absence of hyperhomocysteinemia. The N7976P variant is not associated with elevated homocysteine levels unless a C677T variant is also present; however, the clinical significance of heterozygosity for both C677T and S8365O is controversial. Population data suggest that these two variants are not present on the same chromosome, but rare exceptions have been reported of triple variant MTHFR genotypes (ie. homozygous for one variant and heterozygous for the other). Homozygosity for C677T has an estimated frequency of 10% to 15% in Caucasians and 25% in Hispanics. Additional information: Dietary folic acid, B6 and B12 supplementation has been suggested to lower homocysteine levels in some people. Folic acid supplementation has been shown to reduce the occurrence of neural tube defects. Genetic counselors are available for health care providers to discuss results at [phone]. Methodology: DNA analysis of the MTHFR gene was performed by PCR amplification followed by restriction analysis. The diagnostic sensitivity is >99% for both. Molecular-based testing is highly accurate, but as in any laboratory test, rare diagnostic errors may occur. All test results must be combined with clinical information for the most accurate interpretation. This test was developed and its performance characteristics determined by [facility]. It has not been cleared or approved by the Food and Drug Administration. References: Lamberto LD, Vallejo Q. Am J Epidemiol 2000; 151(9):862-877. Sameer MM, Alison JA. Arch Pathol Lab Med 2007; 131(6):872-884. Frosst P et al. Albertina Nancy 1995; 10(1):111-113. Hickey SE et al. Nancy Med 2013; 15(2):153-156. Xiao C et al. Obstet Gynecol 2011; 118(3):730-740. Tacos B et al. Eur J Epidemiol 2013; 28(8):621-647. Karma Akins, PhD, FACMG Brianna Tucker, PhD, FACMG Audrey Robin, PhD, FACMG Moiz YbarraSAmanda, PhD, FACMG Leanne Prater, PhD, FACMG Sherri Way, PhD, FACMG Ramiro Velasco, PhD, FACMG Performed at: [facility] [address] [place], [place] [id number] Partnership Manager: Leighann Lin MD, Phone: [phone] 22 NEGATIVE No mutation identified. Comment: A point mutation ([id number]) in the factor II (prothrombin) gene is the second most common cause of inherited thrombophilia. The incidence of this mutation in the [place] population is about 2% and in the population it is approximately 0.5%. This mutation is rare in the and population. Being heterozygous for a prothrombin mutation increases the risk for developing venous thrombosis about 2 to 3 times above the general population risk. Being homozygous for the prothrombin gene mutation increases the relative risk for venous thrombosis further, although it is not yet known how much further the risk is increased. In women heterozygous for the prothrombin gene mutation, the use of estrogen containing oral contraceptives increases the relative risk of venous thrombosis about 16 times and the risk of developing cerebral thrombosis is also significantly increased. In the prothrombin gene mutation increases risk for venous thrombosis and may increase risk for stillbirth, placental abruption, pre-eclampsia and growth restriction. If the patient possesses two or more congenital or acquired thrombophilic risk factors, the risk for thrombosis may rise to more than the sum of the risk ratios for the individual mutations. This assay detects only the prothrombin [id number] mutation and does not measure genetic abnormalities elsewhere in the genome. Other thrombotic risk factors may be pursued through systematic clinical laboratory analysis. These factors include the R506Q (Leiden) mutation in the Factor V gene, plasma homocysteine levels, as well as testing for deficiencies of antithrombin III, protein C and protein S. 23 Genetic Counselors are available for health care providers to discuss results at [phone] ([phone]). Methodology: DNA analysis of the Factor II gene was performed by PCR amplification followed by restriction analysis. The diagnostic sensitivity is >99% for both. All the tests must be combined with clinical information for the most accurate interpretation. Molecular-based testing is highly accurate, but as in any laboratory test, diagnostic errors may occur. This test was developed and its performance characteristics determined by [facility] [employer]. It has not been cleared or approved by the Food and Drug Administration. Poort SR, et al. Blood. 1996; 88:1002-7316. Devora EA. Circulation. 2004; 110:e15-e18. Huang I, et al. Arterioscler Thromb Vasc Biol. 1999; 19:700-703. Karma Akins, PhD, FACMG Brianna Tucker, PhD, FACMG Audrey Robin, PhD, FACMG Sarah Hickman MAmandaSAmanda, PhD, FACMG Leanne Prater, PhD, FACMG Sherri Way, PhD, FACMG Ramiro Velasco, PhD, FACMG Performed at: [facility] [address] [place], [place] [id number] Partnership Manager: Leighann Lin MD, Phone: [phone] 24 Protein S activity may be falsely increased (masking an abnormal, low result) in patients receiving direct Xa inhibitor (e.g., rivaroxaban, apixaban, edoxaban) or a direct thrombin inhibitor (e.g., dabigatran) anticoagulant treatment due to assay interference by these drugs. 25 This test was developed and its performance characteristics determined by [facility]. It has not been cleared or approved by the Food and Drug Administration. 26 This test was developed and its performance characteristics determined by [facility]. It has not been cleared or approved by the Food and Drug Administration. 27 Performed at: [address] [id number] Partnership Manager: Johnny Craig MD, Phone: [phone] 28 Results are consistent with the presence of a lupus anticoagulant. NOTE: Only persistent lupus anticoagulants are thought to be of clinical significance. For this reason, repeat testing in 12 or more weeks after an initial positive result should be considered to confirm or refute the presence of a lupus anticoagulant, depending on clinical presentation. Results of lupus anticoagulant tests may be falsely positive in the presence of certain anticoagulant therapies. 29 Direct thrombin inhibitor anticoagulants such as rivaroxaban, apixaban and edoxaban will lead to spuriously elevated antithrombin activity levels possibly masking a deficiency. 30 This test was developed and its performance characteristics determined by [facility]. It has not been cleared or approved by the Food and Drug Administration. 31 Negative: <15 Indeterminate: 15 - 20 Low-Med Positive: >20 - 80 High Positive: >80 32 Negative: <13 Indeterminate: 13 - 20 Low-Med Positive: >20 - 80 High Positive: >80 33 Negative: <12 Indeterminate: 12 - 20 Low-Med Positive: >20 - 80 High Positive: >80 Performed at: [address] [id number] Partnership Manager: Lexi Lopez MD, Phone: [phone] 34 Method: Sediplast Modified Westergren 35 Note: Persistent reduction for 3 months or more in an eGFR <60 mL/min/1.73 m2 defines CKD. Patients with eGFR values >/=60 mL/min/1.73 m2 may also have CKD if evidence of persistent proteinuria is present. The original MDRD equation for estimated GFR is not valid for patients less than 18 years of age. Additional information may be found at www.[email or web address]. 36 SENT BY RADIOLOGY, BLOOD CLOT IN L ARM 37 Method: Sediplast Modified Westergren 38 Note: Persistent reduction for 3 months or more in an eGFR <60 mL/min/1.73 m2 defines CKD. Patients with eGFR values >/=60 mL/min/1.73 m2 may also have CKD if evidence of persistent proteinuria is present. The original MDRD equation for estimated GFR is not valid for patients less than 18 years of age. Additional information may be found at www.kdoqi.org. 39 0.0 - 0.045 ng/mL: Normal 0.046 - 0.5 ng/mL: Suggestive 0.6 - 1.5 ng/mL: Consistent 40 ACUTE APPENDICITIS 41 Note: Persistent reduction for 3 months or more in an eGFR <60 mL/min/1.73 m2 defines CKD. Patients with eGFR values >/=60 mL/min/1.73 m2 may also have CKD if evidence of persistent proteinuria is present. The original MDRD equation for estimated GFR is not valid for patients less than 18 years of age. Additional information may be found at www.kdoqi.org. 42 Instrument flagged sample for slide review. Less than 10% Bands seen, no other immature WBC's seen. RBC morphology essentially normal. Platelet estimate=NORMAL 43 . A negative result for either C. trachomatis and/or N. gonorrhoeae does not preclued an infection because results are dependent on adequate specimen collection, absence of inhibitors, and sufficient DNA to be detected. 44 Method: BD Affirm VPIII DNA Probe Assay 45 Hard copy of report to be sent by mail Report may be viewed in Clinical Review, or in PCI under Medical Record Forms 46 THERAPEUTIC INR RANGE: 2.0 - 3.0 DVT, Pulmonary embolus, prophylaxis against venous thrombosis or systemic embolization in high risk patients. 2.5 - 3.5 Mechanical heart valves 47 Note: Persistent reduction for 3 months or more in an eGFR <60 mL/min/1.73 m2 defines CKD. Patients with eGFR values >/=60 mL/min/1.73 m2 may also have CKD if evidence of persistent proteinuria is present. The original MDRD equation for estimated GFR is not valid for patients less than 18 years of age. Additional information may be found at www.kdoqi.org. 48 Values below the stated reference ranges of AST and ALT can be seen in normal populations. Clinical correlation is suggested. 49 SENT BY CC, RULE OUT APPENDICITIS 50 URINE, CLEAN CATCH 51 NORMAL KIDNEY FUNCTION OR MILD DISEASE - GFR >OR=60 CHRONIC KIDNEY DISEASE - GFR 15 - 59 RENAL FAILURE - GFR <15 Est. GFR calculation based on the MDRD study equation, which assumes a steady state for creatinine. Est. GFR should not be used for medication dosing. 52 HEMOGLOBIN A1c INTERPRETATION: 4.0-6.0% GOOD GLYCEMIC CONTROL 6.1-6.5% AT RISK FOR HYPERGLYCEMIA >6.5% DIABETIC/ POOR GLYCEMIC CONTROL REFERENCE: DIABETES CARE 32(7), 2008 IF A1c RESULT IS INCONSISTENT WITH CLINICAL ESTIMATES OF GLYCEMIC CONTROL, AN INTERFERING Hb VARIANT SHOULD BE CONSIDERED. 53 PER NCEP ATP III GUIDELINES: RESULTS LOWER THAN 40 MG/DL ARE SUGGESTIVE OF INCREASED RISK FOR CORONARY ARTERY DISEASE. RESULTS > OR=TO 60 MG/DL ARE CONSIDERED A NEGATIVE RISK FACTOR. 54 INTERPRETATION OF CHOL-HDL RATIO CHD RISK FEMALE MALE VERY HIGH >8.3 >14.3 HIGH 5.6- 8.3 6.7- 14.3 AVERAGE 3.7- 5.6 4.0- 6.7 BELOW AVERAGE 2.5- 3.7 2.7- 4.0 PROTECTED <2.5 <2.7 55 PER NCEP ATP III GUIDELINES: OPTIMAL < 100 NEAR OPTIMAL 100 - 129 BORDERLINE HIGH 130 - 159 HIGH 160 - 189 VERY HIGH > 189 56 IONIZED CALCIUM NORMALIZED TO PH 7.40 AND 37 DEGREES C. Procedures Date CPT Code Description Status 06/25/2017 39540 Visual Screening Test Completed 06/25/2017 99686 EKG Completed 06/25/2017 13463 Audiometry, Besh[place], Screening Completed Encounters Type Date Location Provider CPT E/M Dx Office Visit 10/11/2017 1:45p Dom Manuel M.D. 33860 E11.9 I10 E78.2 E21.5 L20.9 J30.9 E66.9 D68.51 Z30.8 H53.30 K51.90 B35.4 R10.30 M79.602 M25.512 R19.7 Z90.49 D25.9 I82.702 N93.8 Office Visit 09/23/2017 2:00p Dom Manuel M.D. 25440 E11.9 I10 E78.2 E21.5 L20.9 J30.9 E66.9 D68.51 Z30.8 H53.30 K51.90 B35.4 R10.30 M79.602 M25.512 R19.7 Z90.49 D25.9 I82.702 N93.8 Office Visit 08/27/2017 11:00a Dom Manuel M.D. 79945 E11.9 I10 E78.2 E21.5 L20.9 J30.9 E66.9 D68.51 Z30.8 H53.30 K51.90 B35.4 R10.30 M79.602 M25.512 R19.7 Z90.49 D25.9 I82.702 N93.8 Office Visit 07/29/2017 10:30a Dom Manuel M.D. 33711 E11.9 I10 E78.2 E21.5 L20.9 J30.9 E66.9 D68.51 Z30.8 H53.30 K51.90 R10.30 B35.4 M79.602 M25.512 R19.7 Z90.49 D25.9 I82.602 Office Visit 06/25/2017 10:30[place] [address] E11.9 L20.9 J30.9 I10 E78.2 Z00.01 E21.5 Z30.8 E66.9 D68.51 Z68.34 Plan of Care Future Appointment(s):11/25/2017 1:00 pm - Dom Singh M.D. at [facility]04/2017 - Dom Singh M.D.E11.9 Type 2 diabetes mellitus without complicationsComments:DIET AND EXERCISELOW GLUCOSE CARB/DIETF/U HGBA1C AT 3 MO INTERVALSDIET MANAGEMENT AT THIS TIME HAS INSULIN PUMPI10 Essential (primary) hypertensionComments:CHECK BP TIW ( PRN)F/U LABDIET AND FLUID COUNSELING LOW SODIUM DIETWT LOSSF/U LABE78.2 Mixed hyperlipidemiaComments:DIET REVIEWED CONTINUE DIETWT LOSSF/U LAB FBW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, unspecifiedComments:S/P PARTIAL PARATHYROIDECTOMYWILL REFER TO ENDOL20.9 Atopic dermatitis, unspecifiedComments:SKIN CARE INSTRUCTIONS LOTION OR BABY OIL 2-3 APPLICATION PER DAYUSE MOISTURIZING SOAPAVOID PROLONGED WATER EXPOSUREAVOID USING HOT WATER IN BRDSNSJ25.9 Allergic rhinitis, unspecifiedComments:INCREASE PO FLUID USE ANTIHISTAMINE PRN SECOND HAND SMOKING HTVZPQUKLJ59.9 Obesity, unspecifiedComments:DIET MANAGEMENTCOUNSELLINGAVOIDANCES SCEGFRELJK34.51 Activated protein C resistanceComments:OBSERVEF/U LABF/U HEMATOLOGY/ REHUMATOLOGY PRNREVIEW OF SAFETY CTELCMLFA56.8 Encounter for other contraceptive managementComments:F/U WITH OB/GYNH53.30 Unspecified disorder of binocular visionComments:USE GLASSES/CONTACTSF/U WITH XSBROUXPVEZQZK31.90 Ulcerative colitis, unspecified, without complicationsComments:F/U WITH GIB35.4 Tinea corporisComments:SKIN CARE BQUIDXSWKORBJ50.30 Lower abdominal pain, unspecifiedComments:TYLENOL OR MOTRIN PRNINCREASE PO FLUIDF/U WROXDNNSC49.602 Pain in left armComments:TYLENOL OR MOTRIN PRN EXERCISE/HEAT/ MESSAGE DUR QPATJIUA82.512 Pain in left shoulderComments:EXERCISE/HEAT / MESSAGE AVOID HEAVY LIFTINGTYLENOL OR MOTRIN PRNR19.7 Diarrhea, unspecifiedComments:INCREASE PO FLUID DIET REVIEW LEXIE DIET PRNIMMODIUM PRNZ90.49 Acquired absence of other specified parts of digestive tractComments: FGULJTRI04.9 Leiomyoma of uterus, unspecifiedComments:F/U WITH [employer] OPERATOR S/P BIOPSY AND WAS WNLPLAN FOR HYSTERECTOMY BUT WAITING ON CLEARANCE FROM CARDIOLOGYAND AVRRZSWRJLE15.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
--- OUTSIDE RECORDS SUMMARY | 2017-10-17 18:58 | XMS REPORT ---
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 941210603 thrombophilia Problem Acute embolism and I82.622 Active thrombosis of deep veins of left upper extremity Problem Leiomyoma of D25.9 Active 77310697 uterus, unspecified Problem Excessive and N92.0 Active 426875598 frequent menstruation with regular cycle ALLERGIES No Information ENCOUNTERS Encounter Location Date Diagnosis [facility] [address], OBGYN [place], [place] [id number] Formerly [facility] [address] [place], Oct, [facility] [id number] [facility] [address], [place] [id number] [facility] [address] Oct[place] OBGYN [place] [id number] [facility] [address] Sep, [place]BGYN [place] [id number] [facility] [address] Sep, [place] [id number] [facility] [address] Sep, Excessive and frequent OBGYN [facility] menstruation with regular [place] [id number] cycle N92.0 ; Leiomyoma of uterus, unspecified D25.9 ; Other primary thrombophilia D68.59 and Acute embolism and thrombosis of deep veins of left upper extremity I82.622 [facility] [address] Sep, Excessive and frequent OBGYN [facility], menstruation with regular [place] [id number] cycle N92.0 ; Leiomyoma of uterus, unspecified D25.9 ; Other primary thrombophilia D68.59 and Acute embolism and thrombosis of deep veins of left upper extremity I82.622 [place] [facility] [address] Aug, OBGYN [place], [place] [id number] [place] [facility] [address] Aug, OBG[place], [place] [id number] [place] [facility] [address] Aug, [facility] with regular [place] [id number] cycle N92.0 ; Leiomyoma of uterus, unspecified D25.9 ; Other primary thrombophilia D68.59 and Acute embolism and thrombosis of deep veins of left upper extremity I82.622 [place] [facility] [address] Aug, OBGYN [place] [id number] [place] [facility] [address] Aug, OBG[place] [id number] [place] [facility] [address] Aug, [facility] with regular [place] [id number] cycle N92.0 and Leiomyoma of uterus, unspecified D25.9 [place] [facility] [address] Jul, OBGYN [place], [place] [id number] [place] [facility] [address] Jul, [place] [id number] [place] [facility] [address] Jul, Leiomyoma of uterus, OBGYN [facility], unspecified D25.9 and [place] [id number] Excessive and frequent menstruation with regular cycle N92.0 [place] [facility] [address] Jul, OBGYN [place] [id number] IMMUNIZATIONS No Known Immunizations SOCIAL HISTORY Never Assessed REASON FOR REFERRAL FUNCTIONAL STATUS PLAN OF CARE VITAL SIGNS MEDICATIONS Unknown Medications PROCEDURES No Known procedures RESULTS No Results REASON FOR VISIT urine culture results MEDICAL (GENERAL) HISTORY Type Description Date Medical [...] History CHF 2005 Hospitalization History ulcerative colitis 2005
--- OUTSIDE RECORDS SUMMARY | 2017-10-17 18:59 | XMS REPORT ---
:1975 Author Organization [facility] Address [address] [place] [address] Care Team Providers Name Role Phone Saurabh Steve Unavailable Unavailable PROBLEMS Type Condition ICD9-CM Code HFL68-NM Code Onset Condition SNOMED Code Dates Status Problem Other primary D68.59 Active 264485389 thrombophilia Problem Acute embolism and I82.622 Active thrombosis of deep veins of left upper extremity Problem Leiomyoma of D25.9 Active 21563470 uterus, unspecified Problem Excessive and N92.0 Active 141492620 frequent menstruation with regular cycle ALLERGIES No Information ENCOUNTERS Encounter Location Date Diagnosis [facility] [address] Oct, OBGYN [place], [place] [id number] [facility] [address] [place], Oct, [facility] [id number] [facility] [address] Oct, [place], [place] [id number] [facility] 103 Sep, [place]BG[place] [id number] [facility] [address] Sep, [place]BG[place], [place] [id number] [facility] 103 Sep, Excessive and frequent OBGYN [facility], menstruation with regular [place] [id number] cycle N92.0 ; Leiomyoma of uterus, unspecified D25.9 ; Other primary thrombophilia D68.59 and Acute embolism and thrombosis of deep veins of left upper extremity I82.622 [facility] [address] Sep, Excessive and frequent OBG[facility], menstruation with regular [place] [id number] cycle N92.0 ; Leiomyoma of uterus, unspecified D25.9 ; Other primary thrombophilia D68.59 and Acute embolism and thrombosis of deep veins of left upper extremity I82.622 [place] [facility] [address] Aug, [place] [id number] [place] [facility] [address] Aug, [place] [id number] [place] [facility] [address] Aug, [facility] with regular [place] [id number] cycle N92.0 ; Leiomyoma of uterus, unspecified D25.9 ; Other primary thrombophilia D68.59 and Acute embolism and thrombosis of deep veins of left upper extremity I82.622 [place] [facility] [address] Aug, [place] [id number] [place] [facility] [address] Aug, [place] [id number] [place] [facility] [address] Aug, [facility]ation with regular [place] [address] cycle N92.0 and Leiomyoma of uterus, unspecified D25.9 [place] [facility] [address] Jul, [place] [id number] [place] [facility] [address] Jul, [place] [id number] [place] [facility] [address] Jul, Leiomyoma of uterus, OBGYN [facility], unspecified D25.9 and [place] [id number] Excessive and frequent menstruation with regular cycle N92.0 [place] [facility] [address] Jul, [place] [id number] IMMUNIZATIONS No Known Immunizations SOCIAL HISTORY Never Assessed REASON FOR REFERRAL FUNCTIONAL STATUS PLAN OF CARE VITAL SIGNS MEDICATIONS Unknown Medications PROCEDURES No Known procedures RESULTS No Results REASON FOR VISIT cramping and bleeding MEDICAL (GENERAL) HISTORY Type Description Date Medical [...] Hospitalization History childbirth 2002 Hospitalization History CHF 2006 Hospitalization History ulcerative colitis 2006
--- OUTSIDE RECORDS SUMMARY | 2017-10-17 18:59 | XMS REPORT ---
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 221974654 thrombophilia Problem Acute embolism and I82.622 Active thrombosis of deep veins of left upper extremity Problem Leiomyoma of D25.9 Active 07889381 uterus, unspecified Problem Excessive and N92.0 Active [id number] frequent menstruation with regular cycle ALLERGIES No Information ENCOUNTERS Encounter Location Date Diagnosis [facility] [address], OBGYN [place], [place] [id number] [facility] [address] [place], Oct, [facility] [id number] [facility] [address] Oct, [place] [id number] [facility] [address], [place] [id number] [facility] [address] Sep, [place] [id number] [facility] [address] Sep, Excessive and frequent OBGYN [facility], menstruation with regular [place] [id number] cycle N92.0 ; Leiomyoma of uterus, unspecified D25.9 ; Other primary thrombophilia D68.59 and Acute embolism and thrombosis of deep veins of left upper extremity I82.622 [facility] [address] Sep, Excessive and frequent OBGYN [facility], menstruation with regular [place] [id number] cycle N92.0 ; Leiomyoma of uterus, unspecified D25.9 ; Other primary thrombophilia D68.59 and Acute embolism and thrombosis of deep veins of left upper extremity I82.622 [facility] [address] Aug, [place] [id number] [facility] [address] Aug, [place] [id number] [facility] [address] Aug, [facility] regular [place] [id number] cycle N92.0 ; Leiomyoma of uterus, unspecified D25.9 ; Other primary thrombophilia D68.59 and Acute embolism and thrombosis of deep veins of left upper extremity I82.622 [place] [facility] [address] Aug, [place] [id number] [facility] [facility] [address] Aug, [place] [id number] [facility] [facility] [address] Aug, [facility]ation with regular [place] [id number] cycle N92.0 and Leiomyoma of uterus, unspecified D25.9 [facility] [facility] [address] Jul, [place] [id number] [facility] [address] Jul, [place] [id number] [facility] [address] Jul, [facility] D25.9 and [place] [id number] Excessive and frequent menstruation with regular cycle N92.0 [place] [facility] [address] Jul, [place] [id number] IMMUNIZATIONS No Known Immunizations SOCIAL HISTORY Never Assessed REASON FOR REFERRAL FUNCTIONAL STATUS PLAN OF CARE VITAL SIGNS MEDICATIONS Medication Instructions Dosage Frequency Start End Date Duration Status Date clindamycin 900 intravenously 50 mL 8h Oct, day(s) Active mg/50 mL-NaCl every 8 hours 2017 0.9% PROCEDURES No Known procedures RESULTS No Results REASON FOR VISIT Keisha/Makenzie for [facility] MEDICAL (GENERAL) HISTORY Type Description Date Medical [...]
--- OUTSIDE RECORDS SUMMARY | 2017-10-17 18:59 | XMS REPORT ---
:1975 External Reference #:[id number] Author Organization [facility] Address [address], [address] [place] [address] Phone [phone] Care Team Providers Name Role Phone Evangelina Steve MD Care Team Information National Account Representative Unavailable Dom Singh M.D. 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 Active Onset: 08/05/2017 Acute appendicitis without Yohan Medina MD,FACS Active peritonitis Onset: 08/08/2017 Disorder of menstruation Hu DO Rudy Active Onset: 08/08/2017 History of thromboembolism of vein Hu KarDO darwin Active Family History Date Family Member(s) Problem(s) Comments Father CAD Father Diabetes Father Prostate Cancer Social History Type Date Description Comments Marital Status Diet Patient is on a diabetic diet Diet Patient is on a low sodium diet 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 Independent with all ADL's Cigarette Use Never Smoked Cigarettes ETOH Use Denies alcohol use Smoking Patient denies history of smoking Daily Caffeine Consumes on average 2 sodas per day Daily Caffeine Consumes on average 2 cups of regular coffee per day Allergies, Adverse Reactions, Alerts Date Description Reaction Status Severity Comments 07/30/2017 Levaquin active 07/30/2017 Keflex active Medications Medication Date Status Form Strength Qnty SIG Indications Ordering Provider Aspirin Adult Active Tablets DR 81mg 30tabs 1 by mouth Hu Low Dose 018 every day DO Rudy Metformin HCL Active Tablets 1000mg 1 by mouth Unknown 000 twice a day Lisinopril Active Tablets 5mg 1 by mouth Unknown 000 every day Novolog Active Solution 100Unit/ML As Unknown 000 directed Metoprolol Active Tablets ER 25mg 1 by mouth Unknown Succinate ER 000 24HR every day Megestrol Active Tablets 40mg 2 by mouth Unknown Acetate 000 twice daily Xarelto Hx TBPK 15&20m 51unit use as Hu Starter Pack 018 - g s directed Mehulpenko, DO 018 Hydrocodone-A Hx Tablets 10-325mg TK 1 To 2 Unknown cetaminophen 000 TS PO Q 4 H as Needed. MDD 6 Vital Signs Date Vital Result Comment 09/24/2017 BP Systolic 119 mmHg BP Diastolic 80 mmHg Body Temperature 99.6 F Heart Rate 83 /min Respiratory Rate 16 /min Weight 204.00 lb O2 % BldC Oximetry 100 % Pain Level 0 09/18/2017 BP Systolic Sitting Left Arm 104 mmHg BP Diastolic Sitting Left Arm 78 mmHg Heart Rate 83 /min Respiratory Rate 16 /min Height 64 inches 5'4" Weight 200.00 lb BMI (Body Mass Index) 34.3 kg/m2 BSA (Body Surface Area) 1.96 m2 [place] body weight in kilograms 54 09/05/2017 BP Systolic 110 mmHg BP Diastolic 68 mmHg Body Temperature 97.9 F Heart Rate 89 /min Weight 206.00 lb O2 % BldC Oximetry 99 % 08/08/2017 BP Systolic 114 mmHg BP Diastolic 77 mmHg Body Temperature 98.2 F Heart Rate 71 /min Weight 202.25 lb O2 % BldC Oximetry 97 % 08/05/2017 BP Systolic 113 mmHg BP Diastolic 85 mmHg Body Temperature 97.6 F Heart Rate 94 /min Height 66 inches 5'6" Weight 208.00 lb BMI (Body Mass Index) 33.6 kg/m2 BSA (Body Surface Area) 2.03 m2 [place] body weight in kilograms 59 07/30/2017 BP Systolic 104 mmHg BP Diastolic 68 mmHg Body Temperature 96.6 F Heart Rate 62 /min Height 66 inches 5'6" Weight 207.00 lb BMI (Body Mass Index) 33.4 kg/m2 BSA (Body Surface Area) 2.03 m2 [place] body weight in kilograms 59 O2 % BldC Oximetry 98 % Results Test Date Test Result H/L Range Note Xray 09/20/2017 Left upper extremity <pending> venous Doppler CBS W/Automated 09/02/2017 White Blood Count 10.1 K/uL 3.1-10.7 1 Diff Red Blood Count 4.56 M/uL 3.90-5.40 1 Hemoglobin 13.3 gm/dL 11.6-15.8 1 Hematocrit 41.0 % 36.0-46.1 1 Mean Cell Volume 89.9 fl 80.9-99.0 1 Mean Corpuscular HGB 29.2 pg 25.9-32.7 1 Mean Corpuscular HGB Conc 32.4 g/dL 30.8-34.3 1 Platelet Count 334 K/uL 155-360 1 Red Cell Distri Width SD 47.4 fl High 3-47 1 Red Cell Distri Width %CV 14.9 % High 11.7-14.4 1 Mean Platelet Volume 11.9 fL 8.9-12.4 1 Neut% 52.6 % 40.4-72.8 1 Lymph % 37.1 % 20.0-42.0 1 [place] % 7.1 % 4.3-13.2 1 Eo% 2.8 % 0.0-6.6 1 Bas% 0.4 % 0.0-1.1 1 Neut# 5.29 K/uL 1.8-7.0 1 Lymph # 3.73 K/uL 1.0-4.0 1 [place] # 0.71 K/uL 0.3-0.9 1 Eos # 0.28 K/uL 0.0-0.5 1 Baso # 0.04 K/uL 0.0-0.1 1 Comprehensive Metabolic Panel 09/02/2017 Glucose 133 mg/dL High 74-106 1 BUN 10 mg/dL 7-18 1 Creatinine 1.0 mg/dL 0.6-1.3 1 Glom Filtration Rate, Estimate >60 mL/min >60 1 If >60 mL/min >60 1, 2 BUN/Creat 10.0 ratio 1 Sodium 139 mmol/L 136-145 1 Potassium 4.1 mmol/L 3.5-5.1 1 Chloride 109 mmol/L High 98-107 1 Carbon Dioxide 24 mmol/L 21-32 1 Anion Gap 6 mEq/L Low 8-16 1 Calcium 9.1 mg/dL 8.5-10.1 1 Total Protein 8.0 g/dL 6.4-8.2 1 Albumin 3.7 g/dL 3.4-5.0 1 Globulin 4.3 g/dL 1.9-4.3 1 Alb/Glob 0.9 ratio 1 Bilirubin,Total 0.2 mg/dL 0.2-1.0 1 Sgot/Ast 11 U/L Low 15-37 1, 3 SGPT/Alt 23 U/L 12-78 1 Alkaline Phosphatase 82 U/L 45-117 1 Iron-Tibc-%Sat 09/02/2017 Serum Iron 51 g/dL 50-170 1 Total Iron Binding Capacity 347 g/dL 250-450 1 Transferrin %Saturation 15 % 12-57 1 Laboratory test finding 09/02/2017 Ferritin 96 ng/mL 8-252 1 Vitamin B12 And Folate 09/02/2017 Vitamin B12 253 pg/mL 193-986 1 Folic Acid 7.2 ng/mL 3.1-17.5 1 Laboratory test 08/28/2017 C. Difficile Toxin B Negative for tox 4, 5 finding By PCR <SEE NOTE> Laboratory test 07/30/2017 Sedimentation Rate 11 mm/hr 0-20 6, 7 finding Laboratory test 07/30/2017 DRVVT Mix 54.3 sec High 0.0-47.0 6 finding DRVVT Confirm 1.3 ratio High 0.8-1.2 6 Vitamin B12 And Folate 07/30/2017 Vitamin B12 320 pg/mL 193-986 6 Folic Acid 5.9 ng/mL 3.1-17.5 6 CBS W/Automated Diff 07/30/2017 White Blood Count 7.3 K/uL 3.1-10.7 6 Red Blood Count 4.46 M/uL 3.90-5.40 6 Hemoglobin 13.2 gm/dL 11.6-15.8 6 Hematocrit 40.2 % 36.0-46.1 6 Mean Cell Volume 90.1 fl 80.9-99.0 6 Mean Corpuscular HGB 29.6 pg 25.9-32.7 6 Mean Corpuscular HGB Conc 32.8 g/dL 30.8-34.3 6 Platelet Count 291 K/uL 155-360 6 Red Cell Distri Width SD 46.6 fl 3-47 6 Red Cell Distri Width %CV 14.5 % High 11.7-14.4 6 Mean Platelet Volume 11.2 fL 8.9-12.4 6 Neut% 55.3 % 40.4-72.8 6 Lymph % 31.8 % 20.0-42.0 6 [place] % 7.7 % 4.3-13.2 6 Eo% 4.7 % 0.0-6.6 6 Bas% 0.5 % 0.0-1.1 6 Neut# 4.03 K/uL 1.8-7.0 6 Lymph # 2.32 K/uL 1.0-4.0 6 [place] # 0.56 K/uL 0.3-0.9 6 Eos # 0.34 K/uL 0.0-0.5 6 Baso # 0.04 K/uL 0.0-0.1 6 Comprehensive Metabolic Panel 07/30/2017 Glucose 97 mg/dL 74-106 6 BUN 6 mg/dL Low 7-18 6 Creatinine 1.0 mg/dL 0.6-1.3 6 Glom Filtration Rate, Estimate >60 mL/min >60 6 If >60 mL/min >60 6, 8 BUN/Creat 6.0 ratio 6 Sodium 143 mmol/L 136-145 6 Potassium 3.6 mmol/L 3.5-5.1 6 Chloride 110 mmol/L High 98-107 6 Carbon Dioxide 25 mmol/L 21-32 6 Anion Gap 8 mEq/L 8-16 6 Calcium 8.7 mg/dL 8.5-10.1 6 Total Protein 7.7 g/dL 6.4-8.2 6 Albumin 3.4 g/dL 3.4-5.0 6 Globulin 4.3 g/dL 1.9-4.3 6 Alb/Glob 0.8 ratio 6 Bilirubin,Total 0.2 mg/dL 0.2-1.0 6 Sgot/Ast 28 U/L 15-37 6 SGPT/Alt 29 U/L 12-78 6 Alkaline Phosphatase 73 U/L 45-117 6 Laboratory test finding 07/30/2017 Amylase 43 U/L 25-115 6 Lipase 143 U/L 56-289 6 Anticardiolipin AB 07/30/2017 Anticardiolipin Igg < 9 GPLU/mL 0-14 6 , 9 Iga/Igg/Igm Anticardiolipin Igm, Quant 10 MPLU/mL 0-12 6, 10 Anticardiolipin Iga < 9 APLU/mL 0-11 6, 11 Antithrombin III Panel 07/30/2017 Antithrombin III Activity 122 % 75-135 6, 12 Antithrombin III Antigen 105 % 72-124 6, 13 Laboratory test finding 07/30/2017 Ferritin 23 ng/mL 8-252 6 Iron-Tibc-%Sat 07/30/2017 Serum Iron 38 g/dL Low 50-170 6 Total Iron Binding Capacity 281 g/dL 250-450 6 Transferrin %Saturation 14 % 12-57 6 Lupus Anticoagulant Reflex 07/30/2017 PTT-LA 45.9 sec 0.0-51.9 6 DRVVT 70.5 sec High 0.0-47.0 6 Note: Comment: . 6, 14 Protein S Deficiency Profile 07/30/2017 Protein S,Functional 89 % 63-140 6, 15 Protein S,Total 93 % 60-150 6, 16 Protein S,Free 84 % 57-157 6, 17 Protein C Deficiency Profile 07/30/2017 Protein C,Functional 145 % 73- 180 6, 18 Protein C,Antigen 103 % 60-150 6 Factor II Dna Analysis 07/30/2017 Factor II, Dna Analysis (SEE NOTE) 6 , 19 Additional Information (SEE NOTE) 6, 20 Methylenetetrahydrofolate Redu 07/30/2017 MTHFR,Dna Analysis (SEE NOTE) 6, 21 References (SEE NOTE) 6, 22 Laboratory test finding 07/25/2017 Slide Review . 23, 24 CBS W/Automated Diff 07/25/2017 White Blood Count 7.9 K/uL 3.1-10.7 23 Red Blood Count 3.79 M/uL Low 3.90-5.40 23 Hemoglobin 11.1 gm/dL Low 11.6-15.8 23 Hematocrit 34.1 % Low 36.0-46.1 23 Mean Cell Volume 90.0 fl 80.9-99.0 23 Mean Corpuscular HGB 29.3 pg 25.9-32.7 23 Mean Corpuscular HGB Conc 32.6 g/dL 30.8-34.3 23 Platelet Count 225 K/uL 155-360 23 Red Cell Distri Width SD 43.3 fl 3-47 23 Red Cell Distri Width %CV 13.6 % 11.7-14.4 23 Mean Platelet Volume 10.4 fL 8.9-12.4 23 Neut% 67.8 % 40.4-72.8 23 Lymph % 22.7 % 20.0-42.0 23 [place] % 8.9 % 4.3-13.2 23 Eo% 0.3 % 0.0-6.6 23 Bas% 0.3 % 0.0-1.1 23 Neut# 5.35 K/uL 1.8-7.0 23 Lymph # 1.79 K/uL 1.0-4.0 23 [place] # 0.70 K/uL 0.3-0.9 23 Eos # 0.02 K/uL 0.0-0.5 23 Baso # 0.02 K/uL 0.0-0.1 23 Comprehensive Metabolic Panel 07/25/2017 Glucose 113 mg/dL High 74-106 23 BUN 6 mg/dL Low 7-18 23 Creatinine 0.8 mg/dL 0.6-1.3 23 Glom Filtration Rate, Estimate >60 mL/min >60 23 If >60 mL/min >60 23, 25 BUN/Creat 7.5 ratio 23 Sodium 143 mmol/L 136-145 23 Potassium 3.9 mmol/L 3.5-5.1 23 Chloride 112 mmol/L High 98-107 23 Carbon Dioxide 26 mmol/L 21-32 23 Anion Gap 5 mEq/L Low 8-16 23 Calcium 7.4 mg/dL Low 8.5-10.1 23 Total Protein 5.7 g/dL Low 6.4-8.2 23 Albumin 2.6 g/dL Low 3.4-5.0 23 Globulin 3.1 g/dL 1.9-4.3 23 Alb/Glob 0.8 ratio 23 Bilirubin,Total 0.4 mg/dL 0.2-1.0 23 Sgot/Ast 25 U/L 15-37 23 SGPT/Alt 22 U/L 12-78 23 Alkaline Phosphatase 60 U/L 45-117 23 Comprehensive Metabolic Panel 07/24/2017 Glucose 117 mg/dL High 74-106 23 BUN 6 mg/dL Low 7-18 23 Creatinine 0.9 mg/dL 0.6-1.3 23 Glom Filtration Rate, Estimate >60 mL/min >60 23 If >60 mL/min >60 23, 26 BUN/Creat 6.6 ratio 23 Sodium 144 mmol/L 136-145 23 Potassium 3.9 mmol/L 3.5-5.1 23 Chloride 112 mmol/L High 98-107 23 Carbon Dioxide 29 mmol/L 21-32 23 Anion Gap 3 mEq/L Low 8-16 23 Calcium 7.6 mg/dL Low 8.5-10.1 23 Total Protein 6.0 g/dL Low 6.4-8.2 23 Albumin 2.7 g/dL Low 3.4-5.0 23 Globulin 3.3 g/dL 1.9-4.3 23 Alb/Glob 0.8 ratio 23 Bilirubin,Total 0.4 mg/dL 0.2-1.0 23 Sgot/Ast 13 U/L Low 15-37 23, 27 SGPT/Alt 21 U/L 12-78 23 Alkaline Phosphatase 63 U/L 45-117 23 Laboratory test finding 07/24/2017 Magnesium 1.6 mg/dL Low 1.8-2.4 23 C-Reactive Protein,Quant 4.8 mg/L High <3.0 23 CBS W/Automated Diff 07/24/2017 White Blood Count 7.0 K/uL 3.1-10.7 23 Red Blood Count 3.95 M/uL 3.90-5.40 23 Hemoglobin 11.6 gm/dL 11.6-15.8 23 Hematocrit 35.8 % Low 36.0-46.1 23 Mean Cell Volume 90.6 fl 80.9-99.0 23 Mean Corpuscular HGB 29.4 pg 25.9-32.7 23 Mean Corpuscular HGB Conc 32.4 g/dL 30.8-34.3 23 Platelet Count 240 K/uL 155-360 23 Red Cell Distri Width SD 44.0 fl 3-47 23 Red Cell Distri Width %CV 13.6 % 11.7-14.4 23 Mean Platelet Volume 11.1 fL 8.9-12.4 23 Neut% 61.8 % 40.4-72.8 23 Lymph % 27.9 % 20.0-42.0 23 [place] % 7.8 % 4.3-13.2 23 Eo% 2.4 % 0.0-6.6 23 Bas% 0.1 % 0.0-1.1 23 Neut# 4.33 K/uL 1.8-7.0 23 Lymph # 1.96 K/uL 1.0-4.0 23 [place] # 0.55 K/uL 0.3-0.9 23 Eos # 0.17 K/uL 0.0-0.5 23 Baso # 0.01 K/uL 0.0-0.1 23 Protime 07/24/2017 Protime 13.4 seconds 12.0-14.4 23 Inr 1.0 0.9-1.1 23, 28 HPV High Risk 07/24/2017 HPV High Risk Results on file 23, 29 Affirm Vaginitis 07/24/2017 Trichomonas Negative [Negative 23 Panel vaginalis ] Gardnerella vaginalis Negative [Negative] 23 Muna species Negative [Negative] 23, 30 Chlamydia/GC Cheryle 07/24/2017 Chlamydia Trachomatis, Cheryle Negative Negative 23 Neisseria Gonorrhoeae, Cheryle Negative Negative 23 Please note: (SEE NOTE) 23, 31 Hemoglobin/Hematocrit 07/24/2017 Hemoglobin 11.8 gm/dL 11.6-15.8 23 Hematocrit 36.1 % 36.0-46.1 23 1 Z86.718 D64.9 D68.69 2 Note: Persistent reduction for 3 months or more in an eGFR <60 mL/min/1.73 m2 defines CKD. Patients with eGFR values >/=60 mL/min/1.73 m2 may also have CKD if evidence of persistent proteinuria is present. The original MDRD equation for estimated GFR is not valid for patients less than 18 years of age. Additional information may be found at www.kdoqi.org. 3 Values below the stated reference ranges of AST and ALT can be seen in normal populations. Clinical correlation is suggested. 4 D64.9 R19.7 5 Negative for toxigenic C. difficile by PCR 6 D68.69 D64.9 7 Method: Sediplast Modified Westergren 8 Note: Persistent reduction for 3 months or more in an eGFR <60 mL/min/1.73 m2 defines CKD. Patients with eGFR values >/=60 mL/min/1.73 m2 may also have CKD if evidence of persistent proteinuria is present. The original MDRD equation for estimated GFR is not valid for patients less than 18 years of age. Additional information may be found at www.kdoqi.org. 9 Negative: <15 Indeterminate: 15 - 20 Low-Med Positive: >20 - 80 High Positive: >80 10 Negative: <13 Indeterminate: 13 - 20 Low-Med Positive: >20 - 80 High Positive: >80 11 Negative: <12 Indeterminate: 12 - 20 Low-Med Positive: >20 - 80 High Positive: >80 Performed at: [facility] [employer] [id number] Vice President Global Advertising Sales: Lexi Lopez MD, Phone: [phone] 12 Direct thrombin inhibitor anticoagulants such as rivaroxaban, apixaban and edoxaban will lead to spuriously elevated antithrombin activity levels possibly masking a deficiency. 13 This test was developed and its performance characteristics determined by [employer]. It has not been cleared or approved by the Food and Drug Administration. 14 Results are consistent with the presence of [...] in the presence of certain anticoagulant therapies. 15 Protein S activity may be falsely increased (masking an abnormal, low result) in patients receiving direct Xa inhibitor (e.g., rivaroxaban, apixaban, edoxaban) or a direct thrombin inhibitor (e.g., dabigatran) anticoagulant treatment due to assay interference by these drugs. 16 This test was developed and its performance characteristics determined by [employer]. It has not been cleared or approved by the Food and Drug Administration. 17 This test was developed and its performance characteristics determined by [facility]. It has not been cleared or approved by the Food and Drug Administration. 18 Performed at: [address] [id number] Vice President Global Advertising Sales: Johnny Craig MD, Phone: [phone] NEGATIVE No mutation identified. Comment: A point mutation ([id number]) in the factor II (prothrombin) gene is [...] mutations. This assay detects only the prothrombin N41014H mutation and does not measure genetic abnormalities elsewhere in the genome. Other thrombotic risk factors may be pursued through systematic clinical laboratory analysis. These factors include the R506Q ([place]) mutation in the Factor V gene, plasma homocysteine levels, as well as testing for deficiencies of antithrombin III, protein C and protein S. 20 Genetic Counselors are available for health care providers to discuss results at [phone] Methodology: DNA analysis of the Factor II gene was performed by PCR amplification followed by restriction analysis. The diagnostic sensitivity is >99% for both. All the tests must be combined with clinical information for the most accurate interpretation. Molecular-based testing is highly accurate, but as in any laboratory test, diagnostic errors may occur. This test was developed and its performance characteristics determined by [employer]. It has not been cleared or approved by the Food and Drug Administration. Poort SR, et al. Blood. 1996; 88:4726-5707. Devora DONAHUE. Circulation. 2004; 110:e15-e18. Huang I, et al. Arterioscler Thromb Vasc Biol. 1999; 19:700-703. Karma Akins, PhD, FACMG Brianna Tucker, PhD, FACMG Audrey Robin, PhD, FACMG Sarah Hickman M.S., PhD, FACMG Leanne Prater, PhD, FACMG Sherri Way, PhD, FACMG Ramiro Velasco, PhD, FACMG Performed at: 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 Compound heterozygosity for the C677T and S8947S variants is unlikely to be of clinical [...] be detected through systematic clinical laboratory analysis. 22 Methylenetetrahydrofolate reductase (MTHFR) is a sepulveda enzyme in the folate pathway and is responsible for the metabolism of homocysteine. There are two common variants in the MTHFR gene, c.655c>T (p.Tlp625Wtnl), referred to as C677T, and c.1286A>C (p.Nvs225Aip), referred to as W0378J. Individuals homozygous for C677T (two copies of [...] conditions in the absence of hyperhomocysteinemia. The C5366P variant is not associated with elevated homocysteine levels unless a C677T variant is also present; however, the clinical significance of heterozygosity for both C677T and J8290X is controversial. Population data suggest that these [...] health care providers to discuss results at [phone] Methodology: DNA analysis of the MTHFR gene was performed by PCR amplification followed by restriction analysis. The diagnostic sensitivity is >99% for both. Molecular-based testing is highly accurate, but as in any laboratory test, rare diagnostic errors may occur. All test results must be combined with clinical information for the most accurate interpretation. This test was developed and its performance characteristics determined by [facility]. It has not been cleared or approved by the Food and Drug Administration. References: Lamberto LD, Vallejo Q. Am J Epidemiol 2000; 151(9):862-877. Sameer MM, Alison JA. Arch Pathol Lab Med 2007; 131(6):872-884. Frosst P et al. Albertina Nancy 1995; 10(1):111-113. Hickey SE et al. Nancy Med 2013; 15(2):153-156. Raymond C et al. Obstet Gynecol 2011; 118(3):730-740. Tacos B et al. Eur J Epidemiol 2013; 28(8):621-647. Karma Akins, PhD, FACMG Brianna Tucker, PhD, FACMG Audrey Robin, PhD, FACMG Sarah Hickman M.S., PhD, FACMG Leanne Prater, PhD, FACMG Sherri Way, PhD, FACMG Ramiro Velasco, PhD, FACMG Performed at: [facility] [address], [place] [id number] Vice President Global [employer]vertising Sales: Leighann Lin MD, Phone: [phone] ACUTE APPENDICITIS 24 Instrument flagged sample for slide review. Less than 10% Bands seen, no other immature WBC's seen. RBC morphology essentially normal. Platelet estimate=NORMAL 25 Note: Persistent reduction for 3 months or more in an eGFR <60 mL/min/1.73 m2 defines CKD. Patients with eGFR values >/=60 mL/min/1.73 m2 may also have CKD if evidence of persistent proteinuria is present. The original MDRD equation for estimated GFR is not valid for patients less than 18 years of age. Additional information may be found at www.kdoqi.org. 26 Note: Persistent reduction for 3 months or more in an eGFR <60 mL/min/1.73 m2 defines CKD. Patients with eGFR values >/=60 mL/min/1.73 m2 may also have CKD if evidence of persistent proteinuria is present. The original MDRD equation for estimated GFR is not valid for patients less than 18 years of age. Additional information may be found at www.[email or web address]. 27 Values below the stated reference ranges of AST and ALT can be seen in normal populations. Clinical correlation is suggested. 28 THERAPEUTIC INR RANGE: 2.0 - 3.0 DVT, Pulmonary embolus, prophylaxis against venous thrombosis or systemic embolization in high risk patients. 2.5 - 3.5 Mechanical heart valves 29 Hard copy of report to be sent by mail Report may be viewed in Clinical Review, or in PCI under Medical Record Forms 30 Method: BD Affirm VPIII DNA Probe Assay 31 . A negative result for either C. trachomatis and/or N. gonorrhoeae does not preclued an infection because results are dependent on adequate specimen collection, absence of inhibitors, and sufficient DNA to be detected. Procedures Date CPT Code Description Status 09/18/2017 94453 EKG-Tracing And Report Completed 07/24/2017 87150 Laparotomy, surgical, appendectomy Completed Encounters Type Date Location Provider CPT E/M Dx Office Visit 09/18/2017 3:00p [place] [address] Z01.810 I42.8 Office Visit 09/05/2017 3:30p [place] [address] I82.622 D68.69 N93.9 Office Visit 08/08/2017 2:30p [place] [address] Z86.718 D64.9 D68.69 N93.9 Office Visit 07/30/2017 11:30[place] [address] D68.69 I82.622 D64.9 Plan of Care 09/24/2017 - Hu Rudy, DOI82.622 Acute embolism and thrombosis of deep veins of l up extremFollow up:2 ilstlC39.9 Anemia, ojxaqameaqqX55.69 Other thrombophilia
--- OUTSIDE RECORDS SUMMARY | 2017-10-17 18:59 | XMS REPORT ---
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 376791712 thrombophilia Problem Acute embolism and I82.622 Active thrombosis of deep veins of left upper extremity Problem Leiomyoma of D25.9 Active 41764093 uterus, unspecified Problem Excessive and N92.0 Active 660400151 frequent menstruation with regular cycle ALLERGIES No Information ENCOUNTERS Encounter Location Date Diagnosis [facility] [address] Oct, OBGYN [place], [place] [id number] [facility] [address] [place], Oct, [facility] [id number] [facility] [address] Oct, OBGYN [place], [place] [id number] [facility] 103 Sep, OBGYN [place] [id number] [facility] 103 Sep, OBGYN [place], [place] [id number] [facility] 103 Sep, Excessive and frequent OBGYN [facility], menstruation with regular [place] [id number] cycle N92.0 ; Leiomyoma of uterus, unspecified D25.9 ; Other primary thrombophilia D68.59 and Acute embolism and thrombosis of deep veins of left upper extremity I82.622 [facility] 103 Sep, Excessive and frequent OBGYN [facility], menstruation with regular [place] [id number] cycle N92.0 ; Leiomyoma of uterus, unspecified D25.9 ; Other primary thrombophilia D68.59 and Acute embolism and thrombosis of deep veins of left upper extremity I82.622 [facility] [address] Aug, OBGYN [place], [place] [id number] [place] [facility] 103 Aug, OBGYN [place] [id number] [place] [facility] 103 Aug, [facility] with regular [place] [id number] cycle N92.0 ; Leiomyoma of uterus, unspecified D25.9 ; Other primary thrombophilia D68.59 and Acute embolism and thrombosis of deep veins of left upper extremity I82.622 [place] [facility] 103 Aug, [place] [id number] [place] [facility] 103 Aug, OBGYN [place] [id number] [place] [facility] 103 Aug, [facility] regular [place] [id number] cycle N92.0 and Leiomyoma of uterus, unspecified D25.9 [place] [facility] 103 Jul, [place] [id number] [place] [facility] 103 Jul, OBGYN [place], [place] [id number] [place] [facility] 103 Jul, [facility]oma [facility] uterus, [facility], unspecified D25.9 and [place] [id number] Excessive and frequent menstruation with regular cycle N92.0 [place] [facility] 103 Jul, [place] [id number] IMMUNIZATIONS No Known Immunizations SOCIAL HISTORY Never Assessed REASON FOR REFERRAL FUNCTIONAL STATUS PLAN OF CARE VITAL SIGNS MEDICATIONS Unknown Medications PROCEDURES No Known procedures RESULTS No Results REASON FOR VISIT Dr. Grant -hematology MEDICAL (GENERAL) HISTORY Type Description Date Medical [...]
--- OUTSIDE RECORDS SUMMARY | 2017-10-17 18:59 | XMS REPORT ---
:1975 External Reference #:[id number] Author Organization [facility] Address [address], [address] [place] [address] Phone [phone] Care Team Providers Name Role Phone Evangelina Steve MD Care Team Information Bilingual Operator Unavailable Dom Singh M.D. Primary Care Physician Unavailable Payers Type Date Identification Numbers Payment Provider Subscriber Commercial Effective: Policy Number: [id number] Bob Sharpe 2017 PayID: [id number] [address] [place] [address] Problems Date Description Provider Status Onset: 07/30/2017 [...] is on a low carb diet Occupation [employer] ADL's/IADL's Independent with all ADL's Cigarette Use [...] Form Strength Qnty SIG Indications Ordering Provider Lovenox 10/07/ Active Solution 40mg/0.4ML 7injec 1 injection D68.69 Hu 2017 table daily times Karvanessako, a week DO after surgery Lovenox 10/07/ Active Solution 40mg/0.4ML 7shots 1 injection D68.69 Hu 2018 daily after Karpenko, surgery for DO 7 days Aspirin Adult 08/15/ Active Tablets DR 81mg 30tabs 1 by mouth Hu Low Dose 2017 every day Kar, Metformin HCL / Active Tablets 1000mg 1 by mouth Unknown 0000 twice a day Lisinopril / Active Tablets 5mg 1 by mouth Unknown 0000 every day Metoprolol / Active Tablets ER 25mg 1 by mouth Unknown Succinate ER 0000 24HR every day Xarelto 07/30/ Hx TBPK 15&20m 51unit use as Hu Starter Pack 2018 - g s directed Rudy, 2017 Novolog / Hx Solution 100Unit/ML As directed Unknown 0000 - 2017 Hydrocodone-A / Hx Tablets 10-325mg TK 1 To 2 Unknown cetaminophen 0000 TS PO Q 4 H as Needed. MDD 6 Megestrol / Hx Tablets 40mg 2 by mouth Unknown Acetate 0000 twice daily Vital Signs Date Vital Result Comment 10/07/2017 BP Systolic 113 mmHg BP Diastolic 80 mmHg Body Temperature 98.1 F Heart Rate 88 /min Respiratory Rate 16 /min Weight 202.00 lb O2 % BldC Oximetry 98 % Pain Level 0 09/24/2017 BP Systolic 119 mmHg BP Diastolic [...] kg/m2 BSA (Body Surface Area) 1.96 m2 [place] body weight in kilograms 54 09/05/2017 BP [...] kg/m2 BSA (Body Surface Area) 2.03 m2 [place] body weight in kilograms 59 07/30/2017 BP Systolic 104 mmHg BP Diastolic 68 mmHg Body Temperature 96.6 F Heart Rate 62 /min Height 66 inches 5'6" Weight 207.00 lb BMI (Body Mass Index) 33.4 kg/m2 BSA (Body Surface Area) 2.03 m2 [place] body weight in kilograms 59 O2 % BldC Oximetry 98 % Results Test Date Test Result H/L Range Note Anticardiolipin AB 09/24/2017 Anticardiolipin Igg < 9 GPLU/mL 0-14 1 , 2 Iga/Igg/Igm Anticardiolipin Igm, Quant < 9 MPLU/mL 0-12 1, 3 Anticardiolipin Iga < 9 APLU/mL 0-11 1, 4 Lupus Anticoagulant Reflex 09/24/2017 PTT-LA 30.8 sec 0.0-51.9 1 DRVVT 32.4 sec 0.0-47.0 1 Note: Comment: . 1, 5 Xray 09/20/2017 Left upper extremity <pending> venous Doppler CBS W/Automated Diff 09/02/2017 White Blood Count [...] 6 Lymph % 37.1 % 20.0-42.0 6 [place] % 7.1 % 4.3-13.2 6 Eo% 2.8 % 0.0-6.6 6 Bas% 0.4 % 0.0-1.1 6 Neut# 5.29 K/uL 1.8-7.0 6 Lymph # 3.73 K/uL 1.0-4.0 6 [place] # 0.71 K/uL 0.3-0.9 6 Eos # 0.28 K/uL 0.0-0.5 6 Baso # 0.04 K/uL 0.0-0.1 6 Comprehensive Metabolic Panel 09/02/2017 Glucose 133 [...] 6 Alkaline Phosphatase 82 U/L 45-117 6 Iron-Tibc-%Sat 09/02/2017 Serum Iron 51 g/dL 50-170 6 Total Iron Binding Capacity 347 g/dL 250-450 6 Transferrin %Saturation 15 % 12-57 6 Laboratory test finding 09/02/2017 Ferritin 96 ng/mL 8-252 6 Vitamin B12 And Folate 09/02/2017 Vitamin B12 253 pg/mL 193-986 6 Folic Acid 7.2 ng/mL 3.1-17.5 6 Laboratory test 08/28/2017 C. Difficile Toxin B Negative for tox 9, 10 finding By PCR <SEE NOTE> Laboratory test 07/30/2017 Sedimentation Rate 11 mm/hr 0-20 11, 12 finding Laboratory test 07/30/2017 DRVVT Mix 54.3 sec High 0.0-47. 11 finding 0 DRVVT Confirm 1.3 ratio High 0.8-1.2 11 Vitamin B12 And Folate 07/30/2017 Vitamin B12 320 pg/mL 193-986 11 Folic Acid 5.9 ng/mL 3.1-17.5 11 CBS W/Automated Diff 07/30/2017 White Blood Count 7.3 K/uL 3.1-10.7 11 Red Blood Count 4.46 M/uL 3.90-5.40 11 Hemoglobin 13.2 gm/dL 11.6-15.8 11 Hematocrit 40.2 % 36.0-46.1 11 Mean Cell Volume 90.1 fl 80.9-99.0 11 Mean Corpuscular HGB 29.6 pg 25.9-32.7 11 Mean Corpuscular HGB Conc 32.8 g/dL 30.8-34.3 11 Platelet Count 291 K/uL 155-360 11 Red Cell Distri Width SD 46.6 fl 3-47 11 Red Cell Distri Width %CV 14.5 % High 11.7-14.4 11 Mean Platelet Volume 11.2 fL 8.9-12.4 11 Neut% 55.3 % 40.4-72.8 11 Lymph % 31.8 % 20.0-42.0 11 [place] % 7.7 % 4.3-13.2 11 Eo% 4.7 % 0.0-6.6 11 Bas% 0.5 % 0.0-1.1 11 Neut# 4.03 K/uL 1.8-7.0 11 Lymph # 2.32 K/uL 1.0-4.0 11 [place] # 0.56 K/uL 0.3-0.9 11 Eos # 0.34 K/uL 0.0-0.5 11 Baso # 0.04 K/uL 0.0-0.1 11 Comprehensive Metabolic Panel 07/30/2017 Glucose 97 mg/dL 74-106 11 BUN 6 mg/dL Low 7-18 11 Creatinine 1.0 mg/dL 0.6-1.3 11 Glom Filtration Rate, Estimate >60 mL/min >60 11 If >60 mL/min >60 11, 13 BUN/Creat 6.0 ratio 11 Sodium 143 mmol/L 136-145 11 Potassium 3.6 mmol/L 3.5-5.1 11 Chloride 110 mmol/L High 98-107 11 Carbon Dioxide 25 mmol/L 21-32 11 Anion Gap 8 mEq/L 8-16 11 Calcium 8.7 mg/dL 8.5-10.1 11 Total Protein 7.7 g/dL 6.4-8.2 11 Albumin 3.4 g/dL 3.4-5.0 11 Globulin 4.3 g/dL 1.9-4.3 11 Alb/Glob 0.8 ratio 11 Bilirubin,Total 0.2 mg/dL 0.2-1.0 11 Sgot/Ast 28 U/L 15-37 11 SGPT/Alt 29 U/L 12-78 11 Alkaline Phosphatase 73 U/L 45-117 11 Laboratory test finding 07/30/2017 Amylase 43 U/L 25-115 11 Lipase 143 U/L 56-289 11 Anticardiolipin AB 07/30/2017 Anticardiolipin Igg < 9 GPLU/mL 0-14 11 , 14 Iga/Igg/Igm Anticardiolipin Igm, Quant 10 MPLU/mL 0-12 11, 15 Anticardiolipin Iga < 9 APLU/mL 0-11 11, 16 Antithrombin III Panel 07/30/2017 Antithrombin III Activity 122 % 75-135 11, 17 Antithrombin III Antigen 105 % 72-124 11, 18 Laboratory test finding 07/30/2017 Ferritin 23 ng/mL 8-252 11 Iron-Tibc-%Sat 07/30/2017 Serum Iron 38 g/dL Low 50-170 11 Total Iron Binding Capacity 281 g/dL 250-450 11 Transferrin %Saturation 14 % 12-57 11 Lupus Anticoagulant Reflex 07/30/2017 PTT-LA 45.9 sec 0.0-51.9 11 DRVVT 70.5 sec High 0.0-47.0 11 Note: Comment: . 11, 19 Protein S Deficiency Profile 07/30/2017 Protein S,Functional 89 % 63-140 11, 20 Protein S,Total 93 % 60-150 11, 21 Protein S,Free 84 % 57-157 11, 22 Protein C Deficiency Profile 07/30/2017 Protein C,Functional 145 % 73- 180 11, 23 Protein C,Antigen 103 % 60-150 11 Factor II Dna Analysis 07/30/2017 Factor II, Dna Analysis (SEE NOTE) 11 , 24 Additional Information (SEE NOTE) 11, 25 Methylenetetrahydrofolate Redu 07/30/2017 MTHFR,Dna Analysis (SEE NOTE) 11, 26 References (SEE NOTE) 11, 27 Laboratory test finding 07/25/2017 Slide Review . 28, 29 CBS W/Automated Diff 07/25/2017 White Blood Count 7.9 K/uL 3.1-10.7 28 Red Blood Count 3.79 M/uL Low 3.90-5.40 28 Hemoglobin 11.1 gm/dL Low 11.6-15.8 28 Hematocrit 34.1 % Low 36.0-46.1 28 Mean Cell Volume 90.0 fl 80.9-99.0 28 Mean Corpuscular HGB 29.3 pg 25.9-32.7 28 Mean Corpuscular HGB Conc 32.6 g/dL 30.8-34.3 28 Platelet Count 225 K/uL 155-360 28 Red Cell Distri Width SD 43.3 fl 3-47 28 Red Cell Distri Width %CV 13.6 % 11.7-14.4 28 Mean Platelet Volume 10.4 fL 8.9-12.4 28 Neut% 67.8 % 40.4-72.8 28 Lymph % 22.7 % 20.0-42.0 28 [place] % 8.9 % 4.3-13.2 28 Eo% 0.3 % 0.0-6.6 28 Bas% 0.3 % 0.0-1.1 28 Neut# 5.35 K/uL 1.8-7.0 28 Lymph # 1.79 K/uL 1.0-4.0 28 [place] # 0.70 K/uL 0.3-0.9 28 Eos # 0.02 K/uL 0.0-0.5 28 Baso # 0.02 K/uL 0.0-0.1 28 Comprehensive Metabolic Panel 07/25/2017 Glucose 113 mg/dL High 74-106 28 BUN 6 mg/dL Low 7-18 28 Creatinine 0.8 mg/dL 0.6-1.3 28 Glom Filtration Rate, Estimate >60 mL/min >60 28 If >60 mL/min >60 28, 30 BUN/Creat 7.5 ratio 28 Sodium 143 mmol/L 136-145 28 Potassium 3.9 mmol/L 3.5-5.1 28 Chloride 112 mmol/L High 98-107 28 Carbon Dioxide 26 mmol/L 21-32 28 Anion Gap 5 mEq/L Low 8-16 28 Calcium 7.4 mg/dL Low 8.5-10.1 28 Total Protein 5.7 g/dL Low 6.4-8.2 28 Albumin 2.6 g/dL Low 3.4-5.0 28 Globulin 3.1 g/dL 1.9-4.3 28 Alb/Glob 0.8 ratio 28 Bilirubin,Total 0.4 mg/dL 0.2-1.0 28 Sgot/Ast 25 U/L 15-37 28 SGPT/Alt 22 U/L 12-78 28 Alkaline Phosphatase 60 U/L 45-117 28 Comprehensive Metabolic Panel 07/24/2017 Glucose 117 mg/dL High 74-106 28 BUN 6 mg/dL Low 7-18 28 Creatinine 0.9 mg/dL 0.6-1.3 28 Glom Filtration Rate, Estimate >60 mL/min >60 28 If >60 mL/min >60 28, 31 BUN/Creat 6.6 ratio 28 Sodium 144 mmol/L 136-145 28 Potassium 3.9 mmol/L 3.5-5.1 28 Chloride 112 mmol/L High 98-107 28 Carbon Dioxide 29 mmol/L 21-32 28 Anion Gap 3 mEq/L Low 8-16 28 Calcium 7.6 mg/dL Low 8.5-10.1 28 Total Protein 6.0 g/dL Low 6.4-8.2 28 Albumin 2.7 g/dL Low 3.4-5.0 28 Globulin 3.3 g/dL 1.9-4.3 28 Alb/Glob 0.8 ratio 28 Bilirubin,Total 0.4 mg/dL 0.2-1.0 28 Sgot/Ast 13 U/L Low 15-37 28, 32 SGPT/Alt 21 U/L 12-78 28 Alkaline Phosphatase 63 U/L 45-117 28 Laboratory test finding 07/24/2017 Magnesium 1.6 mg/dL Low 1.8-2.4 28 C-Reactive Protein,Quant 4.8 mg/L High <3.0 28 CBS W/Automated Diff 07/24/2017 White Blood Count 7.0 K/uL 3.1-10.7 28 Red Blood Count 3.95 M/uL 3.90-5.40 28 Hemoglobin 11.6 gm/dL 11.6-15.8 28 Hematocrit 35.8 % Low 36.0-46.1 28 Mean Cell Volume 90.6 fl 80.9-99.0 28 Mean Corpuscular HGB 29.4 pg 25.9-32.7 28 Mean Corpuscular HGB Conc 32.4 g/dL 30.8-34.3 28 Platelet Count 240 K/uL 155-360 28 Red Cell Distri Width SD 44.0 fl 3-47 28 Red Cell Distri Width %CV 13.6 % 11.7-14.4 28 Mean Platelet Volume 11.1 fL 8.9-12.4 28 Neut% 61.8 % 40.4-72.8 28 Lymph % 27.9 % 20.0-42.0 28 [place] % 7.8 % 4.3-13.2 28 Eo% 2.4 % 0.0-6.6 28 Bas% 0.1 % 0.0-1.1 28 Neut# 4.33 K/uL 1.8-7.0 28 Lymph # 1.96 K/uL 1.0-4.0 28 [place] # 0.55 K/uL 0.3-0.9 28 Eos # 0.17 K/uL 0.0-0.5 28 Baso # 0.01 K/uL 0.0-0.1 28 Protime 07/24/2017 Protime 13.4 seconds 12.0-14.4 28 Inr 1.0 0.9-1.1 28, 33 HPV High Risk 07/24/2017 HPV High Risk Results on file 28, 34 Affirm Vaginitis 07/24/2017 Trichomonas Negative [Negative 28 Panel vaginalis ] Gardnerella vaginalis Negative [Negative] 28 Muna species Negative [Negative] 28, 35 Chlamydia/GC Cheryle 07/24/2017 Chlamydia Trachomatis, Cheryle Negative Negative 28 Neisseria Gonorrhoeae, Cheryle Negative Negative 28 Please note: (SEE NOTE) 28, 36 Hemoglobin/Hematocrit 07/24/2017 Hemoglobin 11.8 gm/dL 11.6-15.8 28 Hematocrit 36.1 % 36.0-46.1 28 1 D68.69 2 Negative: <15 Indeterminate: 15 - 20 Low-Med Positive: >20 - 80 High Positive: >80 3 Negative: <13 Indeterminate: 13 - 20 Low-Med Positive: >20 - 80 High Positive: >80 4 Negative: <12 Indeterminate: 12 - 20 Low-Med Positive: >20 - 80 High Positive: >80 Performed at: [facility] [id number] Export Sales Manager: Lexi Lopez MD, Phone: [phone] 5 No lupus anticoagulant was detected. Performed at: - [facility] [id number] Export Sales Manager: Johnny Craig MD, Phone: [phone] 6 Z86.718 D64.9 D68.69 7 Note: Persistent [...] normal populations. Clinical correlation is suggested. 9 D64.9 R19.7 10 Negative for toxigenic C. difficile by PCR 11 D68.69 D64.9 12 Method: Sediplast Modified Westergren 13 Note: Persistent reduction for 3 months or more in an eGFR <60 mL/min/1.73 m2 defines CKD. Patients with eGFR values >/=60 mL/min/1.73 m2 may also have CKD if evidence of persistent proteinuria is present. The original MDRD equation for estimated GFR is not valid for patients less than 18 years of age. Additional information may be found at www.kdoqi.org. 14 Negative: <15 Indeterminate: 15 - 20 Low-Med Positive: >20 - 80 High Positive: >80 15 Negative: <13 Indeterminate: 13 - 20 Low-Med Positive: >20 - 80 High Positive: >80 16 Negative: <12 Indeterminate: 12 - 20 Low-Med Positive: >20 - 80 High Positive: >80 Performed at: [address] [id number] Export Sales Manager: Lexi Lopez MD, Phone: [phone] 17 Direct thrombin inhibitor anticoagulants such as rivaroxaban, apixaban and edoxaban will lead to spuriously elevated antithrombin activity levels possibly masking a deficiency. 18 This test was developed and its performance characteristics determined by [facility]. It has not been cleared or approved by the Food and Drug Administration. 19 Results are consistent with the presence of [...] in the presence of certain anticoagulant therapies. 20 Protein S activity may be falsely increased (masking an abnormal, low result) in patients receiving direct Xa inhibitor (e.g., rivaroxaban, apixaban, edoxaban) or a direct thrombin inhibitor (e.g., dabigatran) anticoagulant treatment due to assay interference by these drugs. 21 This test was developed and its performance characteristics determined by [employer]. It has not been cleared or approved by the Food and Drug Administration. 22 This test was developed and its performance characteristics determined by [facility]. It has not been cleared or approved by the Food and Drug Administration. 23 Performed at: [address] [id number] Export Sales Manager: Johnny Craig MD, Phone: [phone] 24 NEGATIVE No mutation identified. Comment: A point mutation ([id number]) in the factor II (prothrombin) gene is [...] mutations. This assay detects only the prothrombin H18158M mutation and does not measure genetic abnormalities elsewhere in the genome. Other thrombotic risk factors may be pursued through systematic clinical laboratory analysis. These factors include the R506Q ([place]) mutation in the Factor V gene, plasma homocysteine levels, as well as testing for deficiencies of antithrombin III, protein C and protein S. 25 Genetic Counselors are available for health care providers to discuss results at [phone] ([phone]). Methodology: DNA analysis of the Factor II gene was performed by PCR amplification followed by restriction analysis. The diagnostic sensitivity is >99% for both. All the tests must be combined with clinical information for the most accurate interpretation. Molecular-based testing is highly accurate, but as in any laboratory test, diagnostic errors may occur. This test was developed and its performance characteristics determined by [facility]. It has not been cleared or approved by the Food and Drug Administration. Nahomit SR, et al. Blood. 1996; 88:7621-1159. Devora DONAHUE. Circulation. 2004; 110:e15-e18. Huang I, et al. Arterioscler Thromb Vasc Biol. 1999; 19:700-703. 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 Compound heterozygosity for the C677T and J8629Y variants is unlikely to be of clinical [...] be detected through systematic clinical laboratory analysis. 27 Methylenetetrahydrofolate reductase (MTHFR) is a sepulveda enzyme in the folate pathway and is responsible for the metabolism of homocysteine. There are two common variants in the MTHFR gene, c.655c>T (p.Pgx002Vmft), referred to as C677T, and c.1286A>C (p.Zcp498Hdk), referred to as G9749X. Individuals homozygous for C677T (two copies of [...] conditions in the absence of hyperhomocysteinemia. The C0103V variant is not associated with elevated homocysteine levels unless a C677T variant is also present; however, the clinical significance of heterozygosity for both C677T and S3279U is controversial. Population data suggest that these [...] health care providers to discuss results at [phone]. Methodology: DNA analysis of the MTHFR gene was performed by PCR amplification followed by restriction analysis. The diagnostic sensitivity is >99% for both. Molecular-based testing is highly accurate, but as in any laboratory test, rare diagnostic errors may occur. All test results must be combined with clinical information for the most accurate interpretation. This test was developed and its performance characteristics determined by [employer]. It has not been cleared or approved by the Food and Drug Administration. References: Keturah LD, Yoni Q. Am J Epidemiol 2000; 151(9):862-877. Sameer MM, Alison JA. Arch Pathol Lab Med 2007; 131(6):872-884. Frosst P et al. Albertina Nancy 1995; 10(1):111-113. Hickey SE et al. Nancy Med 2013; 15(2):153-156. Copeland C et al. Obstet Gynecol 2011; 118(3):730-740. Tacos B et al. Eur J Epidemiol 2013; 28(8):621-647. Karma Akins, PhD, [facility] Brianna Tucker, PhD, [facility] Audrey Robin, PhD, [facility] Sarah Hickman MAmandaS., PhD, [facility] Leanne Prater, PhD, [facility] Sherri Way, PhD, [facility] Ramiro Velasco, PhD, [facility] Performed at: [facility] [address] [place], [place] [id number] Export Sales Manager: Leighann Lin MD, Phone: [phone] 28 ACUTE APPENDICITIS 29 Instrument flagged sample for slide review. Less than 10% Bands seen, no other immature WBC's seen. RBC morphology essentially normal. Platelet estimate=NORMAL 30 Note: Persistent reduction for 3 months or more in an eGFR <60 mL/min/1.73 m2 defines CKD. Patients with eGFR values >/=60 mL/min/1.73 m2 may also have CKD if evidence of persistent proteinuria is present. The original MDRD equation for estimated GFR is not valid for patients less than 18 years of age. Additional information may be found at www.kdoqi.org. 31 Note: Persistent reduction for 3 months or more in an eGFR <60 mL/min/1.73 m2 defines CKD. Patients with eGFR values >/=60 mL/min/1.73 m2 may also have CKD if evidence of persistent proteinuria is present. The original MDRD equation for estimated GFR is not valid for patients less than 18 years of age. Additional information may be found at www.kdoqi.org. 32 Values below the stated reference ranges of AST and ALT can be seen in normal populations. Clinical correlation is suggested. 33 THERAPEUTIC INR RANGE: 2.0 - 3.0 DVT, Pulmonary embolus, prophylaxis against venous thrombosis or systemic embolization in high risk patients. 2.5 - 3.5 Mechanical heart valves 34 Hard copy of report to be sent by mail Report may be viewed in Clinical Review, or in PCI under Medical Record Forms 35 Method: BD Affirm VPIII DNA Probe Assay 36 . A negative result for either C. trachomatis and/or N. gonorrhoeae does not preclued an infection because results are dependent on adequate specimen collection, absence of inhibitors, and sufficient DNA to be detected. Procedures Date CPT Code Description Status 09/18/2017 15659 EKG-Tracing And Report Completed 07/24/2017 69185 Laparotomy, surgical, appendectomy Completed Encounters Type Date Location Provider CPT E/M Dx Office Visit 09/24/2017 9:30a [place] [address] D68.69 D64.9 Z86.718 Office Visit 09/18/2017 3:00p [place] [address] Z01.810 I42.8 Office Visit 09/05/2017 3:30p [place] [address] I82.622 D68.69 N93.9 Office Visit 08/08/2017 2:30p [place] [address] Z86.718 D64.9 D68.69 N93.9 Office Visit 07/30/2017 11:30[place] [address] D68.69 I82.622 D64.9 Plan of Care 10/07/2017 - Hu Rudy, DOI82.622 Acute embolism and thrombosis of deep veins of l up extremFollow up:3 lpqkedW26.69 Other thrombophiliaNew Medication: Lovenox 40 mg/0.4MLLovenox 40 mg/0.4ML
--- OUTSIDE RECORDS SUMMARY | 2017-10-17 18:59 | XMS REPORT ---
:1975 Author Organization [facility] Address [address] 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, menstruation with regular [place] [id number] cycle N92.0 ; Leiomyoma of uterus, unspecified D25.9 ; Other primary thrombophilia D68.59 and Acute embolism and thrombosis of deep veins of left upper extremity I82.622 [facility] 103 Sep, Excessive and frequent OBGYN [facility], menstruation with regular [place] [id number] cycle N92.0 ; Leiomyoma of uterus, unspecified D25.9 ; Other primary thrombophilia D68.59 and Acute embolism and thrombosis of deep veins of left upper extremity I82.622 [facility] [address] Aug, OBGYN [place], [place] [id number] [facility] [address] Aug, OBGYN [place], [place] [id number] [facility] [facility] 103 Aug, Excessive and frequent OBGYN [facility], menstruation with regular [place] [id number] cycle N92.0 ; Leiomyoma of uterus, unspecified D25.9 ; Other primary thrombophilia D68.59 and Acute embolism and thrombosis of deep veins of left upper extremity I82.622 [place] [facility] 103 Aug, OBGYN [place], [place] [id number] [place] [facility] 103 Aug, [place] [id number] [place] [facility] 103 Aug, [facility]ation with regular [place] [id number] cycle N92.0 and Leiomyoma of uterus, unspecified D25.9 [place] [facility] 103 Jul, OBGYN [place], [place] [id number] [place] [facility] 103 Jul, [place] [id number] [place] [facility] 103 Jul, Lei[facility]oma of uterus, [facility], unspecified D25.9 and [place] [id number] Excessive and frequent menstruation with regular cycle N92.0 [place] [facility] 103 Jul, [place] [id number] IMMUNIZATIONS No Known Immunizations SOCIAL HISTORY Never Assessed REASON FOR REFERRAL FUNCTIONAL STATUS PLAN OF CARE Activity Details Follow Up As scheduled Reason: Pending Test URINE CULTURE Pending Test URINALYSIS WITH MICROSCOPIC VITAL SIGNS Height 64 in 2017-09-25 Weight 203 lbs 2017-09-25 BMI 34.84 kg/m2 2017-09-25 Blood pressure systolic 110 mm Hg 2017-09-25 Blood pressure diastolic 76 mm Hg 2017-09-25 MEDICATIONS Medication Instructions Dosage Frequency Start End Date Duration Status Date metformin 1000 orally 2 times a 1 tab(s) 12h Active mg day metoprolol 25 orally once a 1 tab(s) 24h Active mg day lisinopril 5 orally once a 1 tab(s) 24h Active mg day NovoLog 100 0 Active units/mL baby asa 81mg 1 24h Active Megace 40 mg orally bid 1 tab 12h Active Plexus 1 tab once a day as directed 24h Active PROCEDURES No Known procedures RESULTS No Results REASON FOR VISIT presurgical counseling MEDICAL (GENERAL) HISTORY Type Description Date Medical [...]
--- OUTSIDE RECORDS SUMMARY | 2017-10-17 19:00 | XMS REPORT ---
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 Problem Leiomyoma of D25.9 Active 79915733 uterus, unspecified Problem Excessive and N92.0 Active 944483986 frequent menstruation with regular cycle ALLERGIES Substance Reaction Event Type Date Status Levaquin hives Drug Allergy Sep, Active Keflex vomiting Drug Allergy Sep, Active ENCOUNTERS Encounter Location Date Diagnosis [facility] [address] Oct, OBGYN [place], [place] [id number] [facility] [address] [place], Oct, [facility] [place] [id number] [facility] [address] Oct, OBGYN [place], [place] [id number] [facility] 103 Sep, [place]BGYN [place], [place] [id number] [facility] 103 Sep, OBGYN [place], [place] [id number] [facility] 103 Sep, Excessive and frequent OBGYN [facility], menstruation with regular [place] [id number] cycle N92.0 ; Leiomyoma of uterus, unspecified D25.9 ; Other primary thrombophilia D68.59 and Acute embolism and thrombosis of deep veins of left upper extremity I82.622 [facility] 103 Sep, Excessive and frequent OBGYN [facility], menstruation with regular [place] [id number] cycle N92.0 ; Leiomyoma of uterus, unspecified D25.9 ; Other primary thrombophilia D68.59 and Acute embolism and thrombosis of deep veins of left upper extremity I82.622 [place] [facility] 103 Aug, OBGYN [place], [place] [id number] [place] [facility] 103 Aug, OBGYN [place], [place] [id number] [place] [facility] 103 Aug, Excessive and frequent OBGYN [facility], menstruation with regular [place] [id number] cycle N92.0 ; Leiomyoma of uterus, unspecified D25.9 ; Other primary thrombophilia D68.59 and Acute embolism and thrombosis of deep veins of left upper extremity I82.622 [place] [facility] 103 Aug, OBGYN [place], [place] [id number] [place] [facility] 103 Aug, OBGYN [place], [place] [id number] [place] [facility] 103 Aug, Excessive and frequent OBGYN [facility], menstruation with regular [place] [id number] cycle N92.0 and Leiomyoma of uterus, unspecified D25.9 [place] [facility] 103 Jul, OBGYN [place], [place] [id number] [place] [facility] 103 Jul, OBGYN [place], [place] [id number] [place] [facility] 103 Jul, Leiomyoma of uterus, OBGYN [facility], unspecified D25.9 and [place] [id number] Excessive and frequent menstruation with regular cycle N92.0 [place] [facility] 103 Jul, OBGYN [place], [place] [id number] IMMUNIZATIONS No Known Immunizations SOCIAL HISTORY Never Assessed REASON FOR REFERRAL FUNCTIONAL STATUS PLAN OF CARE Activity Details Follow Up As scheduled Reason: VITAL SIGNS Height 64 in 2017-09-23 Weight 203 lbs 2017-09-23 BMI 34.84 kg/m2 2017-09-23 MEDICATIONS Medication Instructions Dosage Frequency Start End Date Duration Status Date metoprolol 25 orally once a 1 tab(s) 24h Active mg day NovoLog 100 0 Active units/mL Megace 40 mg orally bid 1 tab 12h Active lisinopril 5 orally once a 1 tab(s) 24h Active mg day metformin 1000 orally 2 times a 1 tab(s) 12h Active mg day baby asa 81mg 1 24h Active Plexus 1 tab once a day as directed 24h Active PROCEDURES No Known procedures RESULTS No Results REASON FOR VISIT f/u MEDICAL (GENERAL) HISTORY Type Description Date Medical [...]
--- OUTSIDE RECORDS SUMMARY | 2017-10-17 19:00 | XMS REPORT ---
:1975 External Reference #:[id number] Author Organization [facility] Address [address] [facility]/[address] [place] [address] Phone [phone] Care Team Providers Name Role Phone Dom Singh M.D. 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 hours as needed M25.512 M79.602 Metformin HCL 06/25/2017 Active Tablets 1000mg 60tabs 1 Tab PO bid E11.9 FranciscoDom MAmandaDAmanda Lisinopril 06/25/2017 Active Tablets 5mg 30tabs 1 by mouth I10 Cresencio Singhmad every day M., M.D. E11.9 Freestyle Test 06/25/2017 Active Strips N/A 180units Use 5-6 E11.9 Francisco, Times Daily Dom Rockwell, To Check BG M.D. BD Insulin 06/25/2017 Active Misc 30G X 90units Use To Give E11.9 Francisco , Syringe Ultra 1/2" 1 Insulin SQ Dom Rockwell, Fine/1ML/30G X ML 3 Times M.D. 1/2" Daily Metoprolol Active Tablets 25mg 30tabs 1 tab by I10 Francisco, Tartrate mouth daily Dom Rockwell MAmandaDAmanda Ibuprofen Active Tablets 800mg TK 1 T PO Q Unknown 6-8 H prn Novolog Active Solution 100Uni 30ml place 100 E11.9 Francisco, t/ML units sq Cresenciomapretty M., daily M.D. Flagyl 07/29/2017 - Hx Tablets 500mg 30tabs 1 tab by R19.7 Francisco, 08/07/2017 mouth three Ahmapretty M., times a day M.D. Diflucan 07/29/2017 - Hx Tablets 150mg 2tabs 1 tab by B35.4 Francisco, 08/06/2017 mouth today Ahmad M., and repeat M.D. in 1 week as needed Clotrimazole 07/29/2017 - Hx Cream 1% 45gm apply to B35.4 Francisco, 08/06/2017 affected Ahmad M., area three M.D. times a day Vital Signs Date Vital Result Comment 09/23/2017 BP Systolic 116 mmHg BP Diastolic [...] Test Date Test Result H/L Range Note CBS W/Automated Diff 09/02/2017 White Blood Count 10.1 K/uL 3.1-10.7 1 Red Blood Count 4.56 M/uL 3.90-5.40 1 [...] 1 Lymph % 37.1 % 20.0-42.0 1 [place] % 7.1 % 4.3-13.2 1 Eo% 2.8 % 0.0-6.6 1 Bas% 0.4 % 0.0-1.1 1 Neut# 5.29 K/uL 1.8-7.0 1 Lymph # 3.73 K/uL 1.0-4.0 1 [place] # 0.71 K/uL 0.3-0.9 1 Eos # 0.28 K/uL 0.0-0.5 1 Baso # 0.04 K/uL 0.0-0.1 1 Iron-Tibc-%Sat 09/02/2017 Serum Iron 51 g/dL 50-170 1 Total Iron Binding Capacity 347 g/dL 250-450 1 Transferrin %Saturation 15 % 12-57 1 Vitamin B12 And Folate 09/02/2017 Vitamin B12 253 pg/mL 193-986 1 Folic Acid 7.2 ng/mL 3.1-17.5 1 Laboratory test finding 09/02/2017 Ferritin 96 ng/mL 8-252 1 Comprehensive Metabolic Panel 09/02/2017 Glucose 133 [...] 1 Alkaline Phosphatase 82 U/L 45-117 1 Laboratory test finding 08/28/2017 C. Difficile Toxin B By Negative for tox 4 PCR <SEE NOTE> Type And Screen 08/07/2017 Patient Blood Type A POS 5 Antibody Screen Negative Negative 5 Comprehensive Metabolic Panel 08/07/2017 Glucose 185 mg/dL High 74-106 5 BUN 8 mg/dL 7-18 5 Creatinine 1.0 mg/dL 0.6-1.3 5 Glom Filtration Rate, Estimate >60 mL/min >60 5 If >60 mL/min >60 5, 6 BUN/Creat 8.0 ratio 5 Sodium 139 mmol/L 136-145 5 Potassium 3.9 mmol/L 3.5-5.1 5 Chloride 107 mmol/L 98-107 5 Carbon Dioxide 27 mmol/L 21-32 5 Anion Gap 5 mEq/L Low 8-16 5 Calcium 9.0 mg/dL 8.5-10.1 5 Total Protein 8.6 g/dL High 6.4-8.2 5 Albumin 3.8 g/dL 3.4-5.0 5 Globulin 4.8 g/dL High 1.9-4.3 5 Alb/Glob 0.8 ratio 5 Bilirubin,Total 0.5 mg/dL 0.2-1.0 5 Sgot/Ast 14 U/L Low 15-37 5, 7 SGPT/Alt 30 U/L 12-78 5 Alkaline Phosphatase 72 U/L 45-117 5 Laboratory test 08/07/2017 Act Partial Thrombo 34.0 seconds 23.4-35.0 5 , 8 finding Time Protime 08/07/2017 Protime 17.9 seconds High 12.0-14.4 5 Inr 1.5 High 0.9-1.1 5, 9 CBS W/Automated Diff 08/07/2017 White Blood Count 6.9 K/uL 3.1-10.7 5 Red Blood Count 4.48 M/uL 3.90-5.40 5 Hemoglobin 13.1 gm/dL 11.6-15.8 5 Hematocrit 40.7 % 36.0-46.1 5 Mean Cell Volume 90.8 fl 80.9-99.0 5 Mean Corpuscular HGB 29.2 pg 25.9-32.7 5 Mean Corpuscular HGB Conc 32.2 g/dL 30.8-34.3 5 Platelet Count 321 K/uL 155-360 5 Red Cell Distri Width SD 46.5 fl 3-47 5 Red Cell Distri Width %CV 14.3 % 11.7-14.4 5 Mean Platelet Volume 11.0 fL 8.9-12.4 5 Neut% 59.4 % 40.4-72.8 5 Lymph % 28.8 % 20.0-42.0 5 [place] % 8.6 % 4.3-13.2 5 Eo% 2.6 % 0.0-6.6 5 Bas% 0.6 % 0.0-1.1 5 Neut# 4.12 K/uL 1.8-7.0 5 Lymph # 2.00 K/uL 1.0-4.0 5 [place] # 0.60 K/uL 0.3-0.9 5 Eos # 0.18 K/uL 0.0-0.5 5 Baso # 0.04 K/uL 0.0-0.1 5 Urine Culture 08/07/2017 Urine Culture MIXED URETHRAL F <SEE NOTE> 5, 10 Quantity < 10,000 CFU/mL 5 Culture If Indicated 08/07/2017 Culture If Indicated CULTURE TO FOLLO 5 , 11 Comment Comment <SEE NOTE> Source: URINE, CLEAN CAT <SEE NOTE> 5, 12 Urinalysis With Microscopic 08/07/2017 Urine Color BLOODY Yellow 5 Urine Clarity CLOUDY Clear 5 Urine Glucose - Dipstick NEGATIVE mg/dL Negative 5 Urine Bilirubin - Dipstick NEGATIVE Negative 5 Urine Ketone TRACE mg/dL High Negative 5 Urine Specific [place] >=1.030 1.010-1.030 5 Urine Blood LARGE Negative 5 Urine PH 5.0 Low 6.5-7.5 5 Urine Protein - Dipstick 100 mg/dL High Negative 5 Urine Urobilinogen - Dipstick 1.0 E.U./dL 0.2-1.0 5 Urine Nitrite - Dipstick POSITIVE Negative 5 Urine Leuk Esterase TRACE Negative 5 Urine RBC TNTC rbc/hpf High 0-2 5 Urine WBC 0-2 wbc/hpf 0-7 5 Urine Epithelial Cells FEW /lpf None Seen 5 Urine Calcium Oxalate Crystals FEW None Seen 5 Urine Bacteria MODERATE None Seen 5 Urine Amorph Sediment SMALL Negative 5 Source: URINE, CLEAN CAT <SEE 5, 13 NOTE> Methylenetetrahydrofolate Redu 07/30/2017 MTHFR,Dna Analysis (SEE NOTE) 14, 15 References (SEE NOTE) 14, 16 Factor II Dna Analysis 07/30/2017 Factor II, Dna Analysis (SEE NOTE) 14 , 17 Additional Information (SEE NOTE) 14, 18 Protein S Deficiency Profile 07/30/2017 Protein S,Functional 89 % 63-140 14, 19 Protein S,Total 93 % 60-150 14, 20 Protein S,Free 84 % 57-157 14, 21 Protein C Deficiency Profile 07/30/2017 Protein C,Functional 145 % 73- 180 14, 22 Protein C,Antigen 103 % 60-150 14 Laboratory test finding 07/30/2017 DRVVT Mix 54.3 sec High 0.0-47.0 14 DRVVT Confirm 1.3 ratio High 0.8-1.2 14 Lupus Anticoagulant Reflex 07/30/2017 PTT-LA 45.9 sec 0.0-51.9 14 DRVVT 70.5 sec High 0.0-47.0 14 Note: Comment: . 14, 23 Antithrombin III Panel 07/30/2017 Antithrombin III Activity 122 % 75-135 14, 24 Antithrombin III Antigen 105 % 72-124 14, 25 Anticardiolipin AB 07/30/2017 Anticardiolipin Igg < 9 GPLU/mL 0-14 14 , 26 Iga/Igg/Igm Anticardiolipin Igm, Quant 10 MPLU/mL 0-12 14, 27 Anticardiolipin Iga < 9 APLU/mL 0-11 14, 28 Laboratory test finding 07/30/2017 Sedimentation Rate 11 mm/hr 0-20 14, 29 Laboratory test finding 07/30/2017 Ferritin 23 ng/mL 8-252 14 Vitamin B12 And Folate 07/30/2017 Vitamin B12 320 pg/mL 193-986 14 Folic Acid 5.9 ng/mL 3.1-17.5 14 Iron-Tibc-%Sat 07/30/2017 Serum Iron 38 g/dL Low 50-170 14 Total Iron Binding Capacity 281 g/dL 250-450 14 Transferrin %Saturation 14 % 12-57 14 CBS W/Automated Diff 07/30/2017 White Blood Count 7.3 K/uL 3.1-10.7 14 Red Blood Count 4.46 M/uL 3.90-5.40 14 Hemoglobin 13.2 gm/dL 11.6-15.8 14 Hematocrit 40.2 % 36.0-46.1 14 Mean Cell Volume 90.1 fl 80.9-99.0 14 Mean Corpuscular HGB 29.6 pg 25.9-32.7 14 Mean Corpuscular HGB Conc 32.8 g/dL 30.8-34.3 14 Platelet Count 291 K/uL 155-360 14 Red Cell Distri Width SD 46.6 fl 3-47 14 Red Cell Distri Width %CV 14.5 % High 11.7-14.4 14 Mean Platelet Volume 11.2 fL 8.9-12.4 14 Neut% 55.3 % 40.4-72.8 14 Lymph % 31.8 % 20.0-42.0 14 [place] % 7.7 % 4.3-13.2 14 Eo% 4.7 % 0.0-6.6 14 Bas% 0.5 % 0.0-1.1 14 Neut# 4.03 K/uL 1.8-7.0 14 Lymph # 2.32 K/uL 1.0-4.0 14 [place] # 0.56 K/uL 0.3-0.9 14 Eos # 0.34 K/uL 0.0-0.5 14 Baso # 0.04 K/uL 0.0-0.1 14 Laboratory test finding 07/30/2017 Amylase 43 U/L 25-115 14 Lipase 143 U/L 56-289 14 Comprehensive Metabolic Panel 07/30/2017 Glucose 97 mg/dL 74-106 14 BUN 6 mg/dL Low 7-18 14 Creatinine 1.0 mg/dL 0.6-1.3 14 Glom Filtration Rate, Estimate >60 mL/min >60 14 If >60 mL/min >60 14, 30 BUN/Creat 6.0 ratio 14 Sodium 143 mmol/L 136-145 14 Potassium 3.6 mmol/L 3.5-5.1 14 Chloride 110 mmol/L High 98-107 14 Carbon Dioxide 25 mmol/L 21-32 14 Anion Gap 8 mEq/L 8-16 14 Calcium 8.7 mg/dL 8.5-10.1 14 Total Protein 7.7 g/dL 6.4-8.2 14 Albumin 3.4 g/dL 3.4-5.0 14 Globulin 4.3 g/dL 1.9-4.3 14 Alb/Glob 0.8 ratio 14 Bilirubin,Total 0.2 mg/dL 0.2-1.0 14 Sgot/Ast 28 U/L 15-37 14 SGPT/Alt 29 U/L 12-78 14 Alkaline Phosphatase 73 U/L 45-117 14 Laboratory test finding 07/29/2017 Sedimentation Rate 31 mm/hr High 0-20 31, 32 CBS W/Automated Diff 07/29/2017 White Blood Count 6.9 K/uL 3.1-10.7 31 Red Blood Count 4.24 M/uL 3.90-5.40 31 Hemoglobin 12.6 gm/dL 11.6-15.8 31 Hematocrit 37.9 % 36.0-46.1 31 Mean Cell Volume 89.4 fl 80.9-99.0 31 Mean Corpuscular HGB 29.7 pg 25.9-32.7 31 Mean Corpuscular HGB Conc 33.2 g/dL 30.8-34.3 31 Platelet Count 295 K/uL 155-360 31 Red Cell Distri Width SD 45.1 fl 3-47 31 Red Cell Distri Width %CV 14.3 % 11.7-14.4 31 Mean Platelet Volume 11.1 fL 8.9-12.4 31 Neut% 59.0 % 40.4-72.8 31 Lymph % 24.5 % 20.0-42.0 31 [place] % 11.4 % 4.3-13.2 31 Eo% 4.8 % 0.0-6.6 31 Bas% 0.3 % 0.0-1.1 31 Neut# 4.10 K/uL 1.8-7.0 31 Lymph # 1.70 K/uL 1.0-4.0 31 [place] # 0.79 K/uL 0.3-0.9 31 Eos # 0.33 K/uL 0.0-0.5 31 Baso # 0.02 K/uL 0.0-0.1 31 Laboratory test finding 07/29/2017 Amylase 45 U/L 25-115 31 Lipase 204 U/L 56-289 31 Comprehensive Metabolic Panel 07/29/2017 Glucose 180 mg/dL High 74-106 31 BUN 5 mg/dL Low 7-18 31 Creatinine 0.9 mg/dL 0.6-1.3 31 Glom Filtration Rate, Estimate >60 mL/min >60 31 If >60 mL/min >60 31, 33 BUN/Creat 5.5 ratio 31 Sodium 142 mmol/L 136-145 31 Potassium 3.8 mmol/L 3.5-5.1 31 Chloride 106 mmol/L 98-107 31 Carbon Dioxide 29 mmol/L 21-32 31 Anion Gap 7 mEq/L Low 8-16 31 Calcium 8.4 mg/dL Low 8.5-10.1 31 Total Protein 6.8 g/dL 6.4-8.2 31 Albumin 3.1 g/dL Low 3.4-5.0 31 Globulin 3.7 g/dL 1.9-4.3 31 Alb/Glob 0.8 ratio 31 Bilirubin,Total 0.2 mg/dL 0.2-1.0 31 Sgot/Ast 19 U/L 15-37 31 SGPT/Alt 29 U/L 12-78 31 Alkaline Phosphatase 72 U/L 45-117 31 Laboratory test finding 07/29/2017 Sedimentation Rate <pending> Amylase <pending> Lipase <pending> Laboratory test finding 07/29/2017 Troponin-I < 0.015 ng/mL 31, 34 Comprehensive Metabolic 07/25/2017 Glucose 113 mg/dL High 74-106 35 Panel BUN 6 mg/dL Low 7-18 35 Creatinine 0.8 mg/dL 0.6-1.3 35 Glom Filtration Rate, Estimate >60 mL/min >60 35 If >60 mL/min >60 35, 36 BUN/Creat 7.5 ratio 35 Sodium 143 mmol/L 136-145 35 Potassium 3.9 mmol/L 3.5-5.1 35 Chloride 112 mmol/L High 98-107 35 Carbon Dioxide 26 mmol/L 21-32 35 Anion Gap 5 mEq/L Low 8-16 35 Calcium 7.4 mg/dL Low 8.5-10.1 35 Total Protein 5.7 g/dL Low 6.4-8.2 35 Albumin 2.6 g/dL Low 3.4-5.0 35 Globulin 3.1 g/dL 1.9-4.3 35 Alb/Glob 0.8 ratio 35 Bilirubin,Total 0.4 mg/dL 0.2-1.0 35 Sgot/Ast 25 U/L 15-37 35 SGPT/Alt 22 U/L 12-78 35 Alkaline Phosphatase 60 U/L 45-117 35 CBS W/Automated Diff 07/25/2017 White Blood Count 7.9 K/uL 3.1-10.7 35 Red Blood Count 3.79 M/uL Low 3.90-5.40 35 Hemoglobin 11.1 gm/dL Low 11.6-15.8 35 Hematocrit 34.1 % Low 36.0-46.1 35 Mean Cell Volume 90.0 fl 80.9-99.0 35 Mean Corpuscular HGB 29.3 pg 25.9-32.7 35 Mean Corpuscular HGB Conc 32.6 g/dL 30.8-34.3 35 Platelet Count 225 K/uL 155-360 35 Red Cell Distri Width SD 43.3 fl 3-47 35 Red Cell Distri Width %CV 13.6 % 11.7-14.4 35 Mean Platelet Volume 10.4 fL 8.9-12.4 35 Neut% 67.8 % 40.4-72.8 35 Lymph % 22.7 % 20.0-42.0 35 [place] % 8.9 % 4.3-13.2 35 Eo% 0.3 % 0.0-6.6 35 Bas% 0.3 % 0.0-1.1 35 Neut# 5.35 K/uL 1.8-7.0 35 Lymph # 1.79 K/uL 1.0-4.0 35 [place] # 0.70 K/uL 0.3-0.9 35 Eos # 0.02 K/uL 0.0-0.5 35 Baso # 0.02 K/uL 0.0-0.1 35 Laboratory test finding 07/25/2017 Slide Review . 35, 37 Chlamydia/GC Cheryle 07/24/2017 Chlamydia Trachomatis, Negative Negative 35 Cheryle Neisseria Gonorrhoeae, Cheryle Negative Negative 35 Please note: (SEE NOTE) 35, 38 Affirm Vaginitis Panel 07/24/2017 Trichomonas vaginalis Negative [ Negative] 35 Gardnerella vaginalis Negative [Negative] 35 Muna species Negative [Negative] 35, 39 Laboratory test 07/24/2017 HPV High Risk - Results on file 35, 40 finding Alt Ref Lab Protime 07/24/2017 Protime 13.4 seconds 12.0-14.4 35 Inr 1.0 0.9-1.1 35, 41 CBS W/Automated Diff 07/24/2017 White Blood Count 7.0 K/uL 3.1-10.7 35 Red Blood Count 3.95 M/uL 3.90-5.40 35 Hemoglobin 11.6 gm/dL 11.6-15.8 35 Hematocrit 35.8 % Low 36.0-46.1 35 Mean Cell Volume 90.6 fl 80.9-99.0 35 Mean Corpuscular HGB 29.4 pg 25.9-32.7 35 Mean Corpuscular HGB Conc 32.4 g/dL 30.8-34.3 35 Platelet Count 240 K/uL 155-360 35 Red Cell Distri Width SD 44.0 fl 3-47 35 Red Cell Distri Width %CV 13.6 % 11.7-14.4 35 Mean Platelet Volume 11.1 fL 8.9-12.4 35 Neut% 61.8 % 40.4-72.8 35 Lymph % 27.9 % 20.0-42.0 35 [place] % 7.8 % 4.3-13.2 35 Eo% 2.4 % 0.0-6.6 35 Bas% 0.1 % 0.0-1.1 35 Neut# 4.33 K/uL 1.8-7.0 35 Lymph # 1.96 K/uL 1.0-4.0 35 [place] # 0.55 K/uL 0.3-0.9 35 Eos # 0.17 K/uL 0.0-0.5 35 Baso # 0.01 K/uL 0.0-0.1 35 Laboratory test finding 07/24/2017 Magnesium 1.6 mg/dL Low 1.8-2.4 35 C-Reactive Protein,Quant 4.8 mg/L High <3.0 35 Comprehensive Metabolic Panel 07/24/2017 Glucose 117 mg/dL High 74-106 35 BUN 6 mg/dL Low 7-18 35 Creatinine 0.9 mg/dL 0.6-1.3 35 Glom Filtration Rate, Estimate >60 mL/min >60 35 If >60 mL/min >60 35, 42 BUN/Creat 6.6 ratio 35 Sodium 144 mmol/L 136-145 35 Potassium 3.9 mmol/L 3.5-5.1 35 Chloride 112 mmol/L High 98-107 35 Carbon Dioxide 29 mmol/L 21-32 35 Anion Gap 3 mEq/L Low 8-16 35 Calcium 7.6 mg/dL Low 8.5-10.1 35 Total Protein 6.0 g/dL Low 6.4-8.2 35 Albumin 2.7 g/dL Low 3.4-5.0 35 Globulin 3.3 g/dL 1.9-4.3 35 Alb/Glob 0.8 ratio 35 Bilirubin,Total 0.4 mg/dL 0.2-1.0 35 Sgot/Ast 13 U/L Low 15-37 35, 43 SGPT/Alt 21 U/L 12-78 35 Alkaline Phosphatase 63 U/L 45-117 35 Hemoglobin/Hematocrit 07/24/2017 Hemoglobin 11.8 gm/dL 11.6-15.8 35 Hematocrit 36.1 % 36.0-46.1 35 Ua RFX Micro & Culture II 07/23/2017 Urine Color YELLOW Yellow 44 Urine Clarity CLEAR Clear 44 Urine Glucose - Dipstick NEGATIVE mg/dL Negative 44 Urine Bilirubin - Dipstick NEGATIVE Negative 44 Urine Ketone NEGATIVE mg/dL Negative 44 Urine Specific [place] >=1.030 1.010-1.030 44 Urine Blood NEGATIVE Negative 44 Urine PH 6.0 Low 6.5-7.5 44 Urine Protein - Dipstick NEGATIVE mg/dL Negative 44 Urine Urobilinogen - Dipstick 0.2 E.U./dL 0.2-1.0 44 Urine Nitrite - Dipstick NEGATIVE Negative 44 Urine Leuk Esterase NEGATIVE Negative 44 Source: URINE, CLEAN CAT <SEE 44, 45 NOTE> CBS W/Automated Diff 07/23/2017 White Blood Count 8.5 K/uL 3.1-10.7 44 Red Blood Count 4.71 M/uL 3.90-5.40 44 Hemoglobin 13.8 gm/dL 11.6-15.8 44 Hematocrit 41.5 % 36.0-46.1 44 Mean Cell Volume 88.1 fl 80.9-99.0 44 Mean Corpuscular HGB 29.3 pg 25.9-32.7 44 Mean Corpuscular HGB Conc 33.3 g/dL 30.8-34.3 44 Platelet Count 338 K/uL 155-360 44 Red Cell Distri Width SD 43.4 fl 3-47 44 Red Cell Distri Width %CV 13.8 % 11.7-14.4 44 Mean Platelet Volume 10.8 fL 8.9-12.4 44 Neut% 57.3 % 40.4-72.8 44 Lymph % 33.7 % 20.0-42.0 44 [place] % 6.2 % 4.3-13.2 44 Eo% 2.4 % 0.0-6.6 44 Bas% 0.4 % 0.0-1.1 44 Neut# 4.87 K/uL 1.8-7.0 44 Lymph # 2.86 K/uL 1.0-4.0 44 [place] # 0.53 K/uL 0.3-0.9 44 Eos # 0.20 K/uL 0.0-0.5 44 Baso # 0.03 K/uL 0.0-0.1 44 CBC With Diff 06/25/2017 WBC 9.1 10*3/uL (4.1-11.0) RBC 5.04 10*6/uL (4.00-5.40) HGB 14.4 g/dL (12.0-16.0) HCT 45.3 % (36.0-47.0) MCV 89.7 fL (80.0-95.0) MCH 28.5 pg (27.0-32.0) MCHC 31.8 g/dL Low (32.0-36.0) RDW 15.0 % High (10.5-14.5) PLT 319 10*3/uL (150-450) MPV 9.7 fL (7.1-10.7) Neut % 60.8 % (35.0-75.0) Lymph % 29.8 % (16.0-52.0) [place] % 5.5 % (0.0-8.0) Eos % 2.9 % (0.0-5.0) Baso % 1.0 % (0.0-4.0) Neut # 5.5 10*3/uL (1.8-7.7) Lymph # 2.7 10*3/uL (1.2-4.8) [place] # 0.5 10*3/uL (0.0-0.8) Eos # 0.3 [...] >60 ml/min/1.73m2 (>59) GFR Interpretation <SEE NOTE> 46 Hemoglobin A1c 06/25/2017 Hemoglobin A1c @ 10.2 % High (4.0-6.0) Est Average Glucose 246 mg/dL 47 [place] Urine Albumin @ 06/25/2017 Albumin, Urine 3.33 mg/dL Creatinine,Urine 337.00 mg/dL Alb/Creatinine Ratio 9.9 ug/mg (0.0-29.9) Laboratory test finding 06/25/2017 TSH,Ultrasensitive @ 1.550 mIU/L ( 0.360-4.170) Free Thyroxine @ 1.19 ng/dL (0.76-1.46) Lipid 06/25/2017 Cholesterol @ 184 mg/dL (0-200) Triglyceride @ 93 mg/dL (30-200) HDL Cholesterol @ 54 mg/dL (>40) 48 Chol/HDL Ratio 3.4 RATIO 49 LDL Chol (Calc) 111 mg/dL (<130) 50 Laboratory test finding 06/25/2017 Calcium 8.8 mg/dL (8.4-10.2) Ionized Calcium 06/25/2017 Calcium Ionized 4.76 mg/dL (4.64-5.28) 51 1 Z86.718 D64.9 D68.69 2 Note: Persistent [...] normal populations. Clinical correlation is suggested. 4 Negative for toxigenic C. difficile by PCR 5 VAGINAL BLEEDING, SENT BY 6 Note: Persistent reduction for 3 months or more in an eGFR <60 mL/min/1.73 m2 defines CKD. Patients with eGFR values >/=60 mL/min/1.73 m2 may also have CKD if evidence of persistent proteinuria is present. The original MDRD equation for estimated GFR is not valid for patients less than 18 years of age. Additional information may be found at www.kdoqi.org. 7 Values below the stated reference ranges of AST and ALT can be seen in normal populations. Clinical correlation is suggested. 8 Is patient on anticoagulants? Coumadin 9 THERAPEUTIC INR RANGE: 2.0 - 3.0 DVT, Pulmonary embolus, prophylaxis against venous thrombosis or systemic embolization in high risk patients. 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 Compound heterozygosity for the C677T and D9653O variants is unlikely to be of clinical [...] be detected through systematic clinical laboratory analysis. 16 Methylenetetrahydrofolate reductase (MTHFR) is a sepulveda enzyme in the folate pathway and is responsible for the metabolism of homocysteine. There are two common variants in the MTHFR gene, c.655c>T (p.Uhb550Ltzk), referred to as C677T, and c.1286A>C (p.Tma985Uzu), referred to as K7895I. Individuals homozygous for C677T (two copies of [...] conditions in the absence of hyperhomocysteinemia. The L3303B variant is not associated with elevated homocysteine levels unless a C677T variant is also present; however, the clinical significance of heterozygosity for both C677T and R4940G is controversial. Population data suggest that these [...] health care providers to discuss results at [phone]. Methodology: DNA analysis of the MTHFR gene was performed by PCR amplification followed by restriction analysis. The diagnostic sensitivity is >99% for both. Molecular-based testing is highly accurate, but as in any laboratory test, rare diagnostic errors may occur. All test results must be combined with clinical information for the most accurate interpretation. This test was developed and its performance characteristics determined by [facility]. It has not been cleared or approved by the Food and Drug Administration. References: Keturah OGDEN, Yoni Q. Am J Epidemiol 2000; 151(9):862-877. Sameer MM, Alison JA. Arch Pathol Lab Med 2007; 131(6):872-884. Charan P et al. Albertina Nancy 1995; 10(1):111-113. Onelia SE et al. Nancy Med 2013; 15(2):153-156. Xiao C et al. Obstet Gynecol 2011; 118(3):730-740. Tacos B et al. Eur J Epidemiol 2013; 28(8):621-647. Karma Akins, PhD, FACMG Brianna Tucker, PhD, FACMG Audrey Robin, PhD, FACMG Sarah Hickman M.S., PhD, FACMG Leanne Prater, PhD, FACMG Sherri Way, PhD, FACMG Ramiro Velasco, PhD, FACMG Performed at: [address] [id number] Cnc Operator: Leighann Lin MD, Phone: [phone] 17 NEGATIVE No mutation identified. Comment: A point mutation ([id number]) in the factor II (prothrombin) gene is [...] mutations. This assay detects only the prothrombin N59448O mutation and does not measure genetic abnormalities elsewhere in the genome. Other thrombotic risk factors may be pursued through systematic clinical laboratory analysis. These factors include the R506Q ([place]) mutation in the Factor V gene, plasma homocysteine levels, as well as testing for deficiencies of antithrombin III, protein C and protein S. 18 Genetic Counselors are available for health care providers to discuss results at [phone]). Methodology: DNA analysis of the Factor II gene was performed by PCR amplification followed by restriction analysis. The diagnostic sensitivity is >99% for both. All the tests must be combined with clinical information for the most accurate interpretation. Molecular-based testing is highly accurate, but as in any laboratory test, diagnostic errors may occur. This test was developed and its performance characteristics determined by [facility]. It has not been cleared or approved by the Food and Drug Administration. Nahomit SR, et al. Blood. 1996; 88:2405-8258. Devora EA. Circulation. 2004; 110:e15-e18. Huang I, et al. Arterioscler Thromb Vasc Biol. 1999; 19:700-703. Karma Akins, PhD, FACMG Brianna Tucker, PhD, FACMG Audrey Robin, PhD, FACMG Sarah Hickman MAmandaS., PhD, FACMG Leanne Prater, PhD, FACMG Sherri Way, PhD, FACMG Ramiro Velasco, PhD, FAC Performed at: [facility] [address] [place], [place] [id number] Cnc Operator: Leighann Lin MD, Phone: [phone] 19 Protein S activity may be falsely increased (masking an abnormal, low result) in patients receiving direct Xa inhibitor (e.g., rivaroxaban, apixaban, edoxaban) or a direct thrombin inhibitor (e.g., dabigatran) anticoagulant treatment due to assay interference by these drugs. 20 This test was developed and its performance characteristics determined by [facility]. It has not been cleared or approved by the Food and Drug Administration. 21 This test was developed and its performance characteristics determined by [facility]. It has not been cleared or approved by the Food and Drug Administration. 22 Performed at: [address] [id number] Cnc Operator: Johnny Craig MD, Phone: [phone] 23 Results are consistent with the presence of [...] in the presence of certain anticoagulant therapies. 24 Direct thrombin inhibitor anticoagulants such as rivaroxaban, apixaban and edoxaban will lead to spuriously elevated antithrombin activity levels possibly masking a deficiency. 25 This test was developed and its performance characteristics determined by [facility]. It has not been cleared or approved by the Food and Drug Administration. 26 Negative: <15 Indeterminate: 15 - 20 Low-Med Positive: >20 - 80 High Positive: >80 27 Negative: <13 Indeterminate: 13 - 20 Low-Med Positive: >20 - 80 High Positive: >80 28 Negative: <12 Indeterminate: 12 - 20 Low-Med Positive: >20 - 80 High Positive: >80 Performed at: - [facility] [id number] Cnc Operator: Lexi Lopez MD, Phone: [phone] 29 Method: Sediplast Modified Westergren 30 Note: Persistent reduction for 3 months or more in an eGFR <60 mL/min/1.73 m2 defines CKD. Patients with eGFR values >/=60 mL/min/1.73 m2 may also have CKD if evidence of persistent proteinuria is present. The original MDRD equation for estimated GFR is not valid for patients less than 18 years of age. Additional information may be found at www.kdo[facility].org. 31 SENT BY RADIOLOGY, BLOOD CLOT IN L ARM 32 Method: Sediplast Modified Westergren 33 Note: Persistent reduction for 3 months or more in an eGFR <60 mL/min/1.73 m2 defines CKD. Patients with eGFR values >/=60 mL/min/1.73 m2 may also have CKD if evidence of persistent proteinuria is present. The original MDRD equation for estimated GFR is not valid for patients less than 18 years of age. Additional information may be found at www.kdoqi.org. 34 0.0 - 0.045 ng/mL: Normal 0.046 - 0.5 ng/mL: Suggestive 0.6 - 1.5 ng/mL: Consistent 35 ACUTE APPENDICITIS 36 Note: Persistent reduction for 3 months or more in an eGFR <60 mL/min/1.73 m2 defines CKD. Patients with eGFR values >/=60 mL/min/1.73 m2 may also have CKD if evidence of persistent proteinuria is present. The original MDRD equation for estimated GFR is not valid for patients less than 18 years of age. Additional information may be found at www.[email or web address]. 37 Instrument flagged sample for slide review. Less than 10% Bands seen, no other immature WBC's seen. RBC morphology essentially normal. Platelet estimate=NORMAL 38 . A negative result for either C. trachomatis and/or N. gonorrhoeae does not preclued an infection because results are dependent on adequate specimen collection, absence of inhibitors, and sufficient DNA to be detected. 39 Method: Evalve VPIII DNA Probe Assay 40 Hard copy of report to be sent by mail Report may be viewed in Clinical Review, or in PCI under Medical Record Forms 41 THERAPEUTIC INR RANGE: 2.0 - 3.0 DVT, Pulmonary embolus, prophylaxis against venous thrombosis or systemic embolization in high risk patients. 2.5 - 3.5 Mechanical heart valves 42 Note: Persistent reduction for 3 months or more in an eGFR <60 mL/min/1.73 m2 defines CKD. Patients with eGFR values >/=60 mL/min/1.73 m2 may also have CKD if evidence of persistent proteinuria is present. The original MDRD equation for estimated GFR is not valid for patients less than 18 years of age. Additional information may be found at www.[email or web address]. 43 Values below the stated reference ranges of AST and ALT can be seen in normal populations. Clinical correlation is suggested. 44 SENT BY CC, RULE OUT APPENDICITIS 45 URINE, CLEAN CATCH 46 NORMAL KIDNEY FUNCTION OR MILD DISEASE - GFR >OR=60 CHRONIC KIDNEY DISEASE - GFR 15 - 59 RENAL FAILURE - GFR <15 Est. GFR calculation based on the MDRD study equation, which assumes a steady state for creatinine. Est. GFR should not be used for medication dosing. 47 HEMOGLOBIN A1c INTERPRETATION: 4.0-6.0% GOOD GLYCEMIC CONTROL 6.1-6.5% AT RISK FOR HYPERGLYCEMIA >6.5% DIABETIC/ POOR GLYCEMIC CONTROL REFERENCE: DIABETES CARE 32(7), 2008 IF A1c RESULT IS INCONSISTENT WITH CLINICAL ESTIMATES OF GLYCEMIC CONTROL, AN INTERFERING Hb VARIANT SHOULD BE CONSIDERED. 48 PER NCEP ATP III GUIDELINES: RESULTS LOWER THAN 40 MG/DL ARE SUGGESTIVE OF INCREASED RISK FOR CORONARY ARTERY DISEASE. RESULTS > OR=TO 60 MG/DL ARE CONSIDERED A NEGATIVE RISK FACTOR. 49 INTERPRETATION OF CHOL-HDL RATIO CHD RISK FEMALE MALE VERY HIGH >8.3 >14.3 HIGH 5.6- 8.3 6.7- 14.3 AVERAGE 3.7- 5.6 4.0- 6.7 BELOW AVERAGE 2.5- 3.7 2.7- 4.0 PROTECTED <2.5 <2.7 50 PER NCEP ATP III GUIDELINES: OPTIMAL < 100 NEAR OPTIMAL 100 - 129 BORDERLINE HIGH 130 - 159 HIGH 160 - 189 VERY HIGH > 189 51 IONIZED CALCIUM NORMALIZED TO PH 7.40 AND 37 DEGREES C. Procedures Date CPT Code Description Status 06/25/2017 54520 Visual Screening Test Completed 06/25/2017 67463 EKG Completed 06/25/2017 24314 Audiometry, Bekesy, Screening Completed Encounters Type Date Location Provider CPT E/M Dx Office Visit 09/23/2017 2:00p Dom Manuel M.D. 27275 E11.9 I10 E78.2 E21.5 L20.9 J30.9 E66.9 D68.51 Z30.8 H53.30 K51.90 B35.4 R10.30 M79.602 M25.512 R19.7 Z90.49 D25.9 I82.702 N93.8 Office Visit 08/27/2017 11:00a Dom Manuel M.D. 67693 E11.9 I10 E78.2 E21.5 L20.9 J30.9 E66.9 D68.51 Z30.8 H53.30 K51.90 B35.4 R10.30 M79.602 M25.512 R19.7 Z90.49 D25.9 I82.702 N93.8 Office Visit 07/29/2017 10:30a Dom Manuel M.D. 52426 E11.9 I10 E78.2 E21.5 L20.9 J30.9 E66.9 D68.51 Z30.8 H53.30 K51.90 R10.30 B35.4 M79.602 M25.512 R19.7 Z90.49 D25.9 I82.602 Office Visit 06/25/2017 10:30[place] [address] E11.9 L20.9 J30.9 I10 E78.2 Z00.01 E21.5 Z30.8 E66.9 D68.51 Z68.34 Plan of Care Future Appointment(s):11/25/2017 1:00 pm - Dom Singh M.D. at [facility] - Dom Singh M.D.E11.9 Type 2 diabetes [...] PROLONGED WATER EXPOSUREAVOID USING HOT WATER IN CDOQQAS07.9 Allergic rhinitis, unspecifiedComments:INCREASE PO FLUID USE ANTIHISTAMINE PRN SECOND HAND SMOKING LNHBLLUMEB37.9 Obesity, unspecifiedComments:DIET MANAGEMENTCOUNSELLINGAVOIDANCES URNKOHJAXC83.51 Activated protein C resistanceComments:OBSERVEF/U LABF/U HEMATOLOGY/ REHUMATOLOGY PRNREVIEW OF SAFETY TDVWQCSIS29.8 Encounter for other contraceptive managementComments:F/U WITH OB/GYNH53.30 Unspecified disorder of binocular visionComments:USE GLASSES/CONTACTSF/U WITH XVPIUOWZYNGSWJ10.90 Ulcerative colitis, unspecified, without complicationsComments:F/U WITH GIB35.4 Tinea corporisComments:SKIN CARE PYEFZYMHUMOSU24.30 Lower abdominal pain, unspecifiedComments:TYLENOL OR MOTRIN PRNINCREASE PO FLUIDF/U LNQYUOMVS43.602 Pain in left armComments:TYLENOL OR MOTRIN PRN EXERCISE/HEAT/ MESSAGE DUR HPZWJLVT77.512 Pain in left shoulderComments:EXERCISE/HEAT / MESSAGE AVOID HEAVY LIFTINGTYLENOL OR MOTRIN PRNR19.7 Diarrhea, unspecifiedComments:INCREASE PO FLUID DIET REVIEW LEXIE DIET PRNIMMODIUM PRNZ90.49 Acquired absence of other specified parts of digestive tractComments: UIDHJPIL83.9 Leiomyoma of uterus, unspecifiedComments:F/U WITH DENIAL MANAGEMENT REPRESENTATIVE S/P BIOPSY AND WAS WNLPLAN FOR HYSTERECTOMY BUT WAITING ON CLEARANCE FROM CARDIOLOGYAND LGDBIYSXVMI35.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Comments:F/U WITH KDQIILBPCEBKTZINRFZ01.8 Other specified abnormal uterine and vaginal bleedingComments:F/U WITH DENIAL MANAGEMENT REPRESENTATIVE PLAN FOR SURGERY 10/08/17PT IS MEDICALLY CLEARED FOR SURGERY
--- OUTSIDE RECORDS SUMMARY | 2017-10-17 19:01 | XMS REPORT ---
:1975 External Reference #:[id number] Author Organization [facility] Address [address] [place] [address] Phone [phone] Care Team Providers Name Role Phone Evangelina Steve MD Care Team Information Senior Manufacturing Test Engineer Unavailable Dom Singh M.D. 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 Independent with all ADL's Cigarette Use [...] mouth Hu Low Dose 018 every day Rudy, Metformin HCL Active Tablets 1000mg 1 by [...] 6 Vital Signs Date Vital Result Comment 09/18/2017 BP Systolic Sitting Left Arm 104 mmHg BP Diastolic Sitting Left Arm 78 mmHg Heart Rate 83 /min Respiratory Rate 16 /min Height 64 inches 5'4" Weight 200.00 lb BMI (Body Mass Index) 34.3 kg/m2 BSA (Body Surface Area) 1.96 m2 [place] body weight in kilograms 54 09/05/2017 BP [...] kg/m2 BSA (Body Surface Area) 2.03 m2 [place] body weight in kilograms 59 07/30/2017 BP Systolic 104 mmHg BP Diastolic 68 mmHg Body Temperature 96.6 F Heart Rate 62 /min Height 66 inches 5'6" Weight 207.00 lb BMI (Body Mass Index) 33.4 kg/m2 BSA (Body Surface Area) 2.03 m2 [place] body weight in kilograms 59 O2 % BldC Oximetry 98 % Results Test Date Test Result H/L Range Note Vitamin B12 And Folate 09/02/2017 Vitamin B12 253 pg/mL 193-986 1 Folic Acid 7.2 ng/mL 3.1-17.5 1 CBS W/Automated Diff 09/02/2017 White Blood Count [...] 1 Lymph % 37.1 % 20.0-42.0 1 Kimble % 7.1 % 4.3-13.2 1 Eo% 2.8 % 0.0-6.6 1 Bas% 0.4 % 0.0-1.1 1 Neut# 5.29 K/uL 1.8-7.0 1 Lymph # 3.73 K/uL 1.0-4.0 1 Kimble # 0.71 K/uL 0.3-0.9 1 Eos # [...] 82 U/L 45-117 1 Laboratory test finding 09/02/2017 Ferritin 96 ng/mL 8-252 1 Iron-Tibc-%Sat 09/02/2017 Serum Iron 51 g/dL 50-170 1 Total Iron Binding Capacity 347 g/dL 250-450 1 Transferrin %Saturation 15 % 12-57 1 Laboratory test finding 08/28/2017 C. Difficile Toxin Negative for tox 4, 5 B By PCR <SEE NOTE> Comprehensive Metabolic 07/30/2017 Glucose 97 mg/dL 74-106 6 Panel BUN 6 mg/dL Low 7-18 6 Creatinine 1.0 mg/dL 0.6-1.3 6 Glom Filtration Rate, Estimate >60 mL/min >60 6 If >60 mL/min >60 6, 7 BUN/Creat 6.0 ratio 6 Sodium 143 mmol/L [...] U/L 45-117 6 Laboratory test finding 07/30/2017 Sedimentation Rate 11 mm/hr 0-20 6, 8 Laboratory test finding 07/30/2017 DRVVT Mix 54.3 sec High 0.0-47.0 6 DRVVT Confirm 1.3 ratio High 0.8-1.2 6 [...] 6 Lymph % 31.8 % 20.0-42.0 6 Kimble % 7.7 % 4.3-13.2 6 Eo% 4.7 % 0.0-6.6 6 Bas% 0.5 % 0.0-1.1 6 Neut# 4.03 K/uL 1.8-7.0 6 Lymph # 2.32 K/uL 1.0-4.0 6 Kimble # 0.56 K/uL 0.3-0.9 6 Eos # 0.34 K/uL 0.0-0.5 6 Baso # 0.04 K/uL 0.0-0.1 6 Laboratory test finding 07/30/2017 Amylase 43 [...] finding 07/30/2017 Ferritin 23 ng/mL 8-252 6 Methylenetetrahydrofolate Redu 07/30/2017 MTHFR,Dna (SEE NOTE) 6, 14 Analysis References (SEE NOTE) 6, 15 Iron-Tibc-%Sat 07/30/2017 Serum Iron 38 g/dL Low 50-170 6 Total Iron Binding Capacity 281 g/dL 250-450 6 Transferrin %Saturation 14 % 12-57 6 Lupus Anticoagulant Reflex 07/30/2017 PTT-LA 45.9 sec 0.0-51.9 6 DRVVT 70.5 sec High 0.0-47.0 6 Note: Comment: . 6, 16 Protein S Deficiency Profile 07/30/2017 Protein S,Functional 89 % 63-140 6, 17 Protein S,Total 93 % 60-150 6, 18 Protein S,Free 84 % 57-157 6, 19 Protein C Deficiency Profile 07/30/2017 Protein C,Functional 145 % 73- 180 6, 20 Protein C,Antigen 103 % 60-150 6 Factor II Dna Analysis 07/30/2017 Factor II, Dna Analysis (SEE NOTE) 6 , 21 Additional Information (SEE NOTE) 6, 22 Laboratory test finding [...] 23 Lymph % 22.7 % 20.0-42.0 23 Kimble % 8.9 % 4.3-13.2 23 Eo% 0.3 % 0.0-6.6 23 Bas% 0.3 % 0.0-1.1 23 Neut# 5.35 K/uL 1.8-7.0 23 Lymph # 1.79 K/uL 1.0-4.0 23 Kimble # 0.70 K/uL 0.3-0.9 23 Eos # [...] 23 Alkaline Phosphatase 60 U/L 45-117 23 Hemoglobin/Hematocrit 07/24/2017 Hemoglobin 11.8 gm/dL 11.6-15.8 23 Hematocrit 36.1 % 36.0-46.1 23 Comprehensive Metabolic Panel 07/24/2017 Glucose 117 [...] 23 Lymph % 27.9 % 20.0-42.0 23 Kimble % 7.8 % 4.3-13.2 23 Eo% 2.4 % 0.0-6.6 23 Bas% 0.1 % 0.0-1.1 23 Neut# 4.33 K/uL 1.8-7.0 23 Lymph # 1.96 K/uL 1.0-4.0 23 Kimble # 0.55 K/uL 0.3-0.9 23 Eos # [...] 23 Please note: (SEE NOTE) 23, 31 1 Z86.718 D64.9 D68.69 2 Note: Persistent [...] difficile by PCR 6 D68.69 D64.9 7 Note: Persistent reduction for 3 months or more in an eGFR <60 mL/min/1.73 m2 defines CKD. Patients with eGFR values >/=60 mL/min/1.73 m2 may also have CKD if evidence of persistent proteinuria is present. The original MDRD equation for estimated GFR is not valid for patients less than 18 years of age. Additional information may be found at www.[email or web address]. 8 Method: Sediplast Modified Westergren 9 Negative: <15 Indeterminate: 15 - 20 Low-Med Positive: >20 - 80 High Positive: >80 10 Negative: <13 Indeterminate: 13 - 20 Low-Med Positive: >20 - 80 High Positive: >80 11 Negative: <12 Indeterminate: 12 - 20 Low-Med Positive: >20 - 80 High Positive: >80 Performed at: [facility] [id number] Inspector Shells: Lexi Lopez MD, Phone: [phone] 12 Direct thrombin inhibitor anticoagulants such as rivaroxaban, apixaban and edoxaban will lead to spuriously elevated antithrombin activity levels possibly masking a deficiency. 13 This test was developed and its performance characteristics determined by [facility]. It has not been cleared or approved by the Food and Drug Administration. 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 Compound heterozygosity for the C677T and R4975T variants is unlikely to be of clinical [...] be detected through systematic clinical laboratory analysis. 15 Methylenetetrahydrofolate reductase (MTHFR) is a sepulveda enzyme in the folate pathway and is responsible for the metabolism of homocysteine. There are two common variants in the MTHFR gene, c.655c>T (p.Mcz604Guar), referred to as C677T, and c.1286A>C (p.Agm599Req), referred to as A4934P. Individuals homozygous for C677T (two copies of [...] conditions in the absence of hyperhomocysteinemia. The R3655U variant is not associated with elevated homocysteine levels unless a C677T variant is also present; however, the clinical significance of heterozygosity for both C677T and N3971G is controversial. Population data suggest that these [...] health care providers to discuss results at [phone]. Methodology: DNA analysis of the MTHFR gene was performed by PCR amplification followed by restriction analysis. The diagnostic sensitivity is >99% for both. Molecular-based testing is highly accurate, but as in any laboratory test, rare diagnostic errors may occur. All test results must be combined with clinical information for the most accurate interpretation. This test was developed and its performance characteristics determined by [facility]. It has not been cleared or approved by the Food and Drug Administration. References: Keturah LD, Vallejo Q. Am J Epidemiol 2000; 151(9):862-877. Sameer MM, Alison JA. Arch Pathol Lab Med 2007; 131(6):872-884. Frosst P et al. Albertina Nancy 1995; 10(1):111-113. Onelia SE et al. Nancy Med 2013; 15(2):153-156. Boyd C et al. Obstet Gynecol 2011; 118(3):730-740. Tacos B et al. Eur J Epidemiol 2013; 28(8):621-647. Karma Akins, PhD, FACMG Brianna Tucker, PhD, FACMG Audrey Robin, PhD, FACMG Sarah Hickman M.S., PhD, FACMG Leanne Prater, PhD, FACMG Sherri Way, PhD, FACMG Ramiro Velasco, PhD, FACMG Performed at: [facility] [address] [place], [place] [id number] Inspector Shells: Leighann Lin MD, Phone: [phone] 16 Results are consistent with the presence of [...] in the presence of certain anticoagulant therapies. 17 Protein S activity may be falsely increased (masking an abnormal, low result) in patients receiving direct Xa inhibitor (e.g., rivaroxaban, apixaban, edoxaban) or a direct thrombin inhibitor (e.g., dabigatran) anticoagulant treatment due to assay interference by these drugs. 18 This test was developed and its performance characteristics determined by [facility]. It has not been cleared or approved by the Food and Drug Administration. 19 This test was developed and its performance characteristics determined by [facility]. It has not been cleared or approved by the Food and Drug Administration. 20 Performed at: [address] [id number] Inspector Shells: Johnny Craig MD, Phone: [phone] NEGATIVE No mutation identified. Comment: A point mutation ([id number]) in the factor II (prothrombin) gene is [...] mutations. This assay detects only the prothrombin O83008Q mutation and does not measure genetic abnormalities elsewhere in the genome. Other thrombotic risk factors may be pursued through systematic clinical laboratory analysis. These factors include the R506Q (Leiden) mutation in the Factor V gene, plasma homocysteine levels, as well as testing for deficiencies of antithrombin III, protein C and protein S. 22 Genetic Counselors are available for health care providers to discuss results at [phone]). Methodology: DNA analysis of the Factor II gene was performed by PCR amplification followed by restriction analysis. The diagnostic sensitivity is >99% for both. All the tests must be combined with clinical information for the most accurate interpretation. Molecular-based testing is highly accurate, but as in any laboratory test, diagnostic errors may occur. This test was developed and its performance characteristics determined by [employer]. It has not been cleared or approved by the Food and Drug Administration. Poort SR, et al. Blood. 1996; 88:0877-1751. Devora DONAHUE. Circulation. 2004; 110:e15-e18. Huang I, et al. Arterioscler Thromb Vasc Biol. 1999; 19:700-703. Karma Akins, PhD, FACMG Brianna Tucker, PhD, FACMG Audrey Robin, PhD, FACMG Sarah Hickman MAmandaS., PhD, FACMG Leanne Prater, PhD, FACMG Sherri Way, PhD, FACMG Ramiro Velasco, PhD, FACMG Performed at: [facility] [address] [place], [place] [id number] Inspector Shells: Leighann Lin MD, Phone: [phone] ACUTE APPENDICITIS 24 Instrument flagged sample [...] Procedures Date CPT Code Description Status 09/18/2017 49982 EKG-Tracing And Report Completed 07/24/2017 40182 Laparotomy, surgical, appendectomy Completed Encounters Type Date Location Provider CPT E/M Dx Office Visit 09/18/2017 3:00p [place] [address] Z01.810 I42.8 Office Visit 09/05/2017 3:30p [place] [address] I82.622 D68.69 N93.9 Office Visit 08/08/2017 2:30p [place] [address] Z86.718 D64.9 D68.69 N93.9 Office Visit 07/30/2017 11:30a [place] [address] D68.69 I82.622 D64.9 Plan of Care Future Appointment(s):09/24/2017 9:30 am - Hu Grant DO at Oncology Xllxah2209/18/2017 - Cornell Swanson MDZ01.810 Encounter for preprocedural cardiovascular examinationNew Orders:EchocardiogramComments:Has very good exercise tolerance with no symptoms. Will be low risk for MACE. 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 EF recovered subsequently with medical therapy. Would recommend a routine surveillance echo ( mainly to have baseline here for comparison for future reference)AllFollow up: As needed. Patient will call for results of testing.
[2017-10-17 20:13] VITALS: BP 112/84
--- NOTE | 2017-10-17 20:40 | UC ---
Throat Pain/Nasal Karlos HPI - HPI Summary HPI Summary: 1. yeast infection under breast 2,cold sores in nose 3.red painful tongue patient recently had hysterectomy and is IDDM type 2 - History of Current Complaint Chief Complaint: UCRespiratory Stated Complaint: SORE THROAT Time Seen by Provider: 10/17/17 20:31 Hx Obtained From: Patient Hx Last Menstrual Period: hysterctomy 10/08/17 ?: No Onset/Duration: Sudden Onset Severity: Moderate Pain Intensity: 4 Pain Scale Used: 0-10 Numeric - Allergies/Home Medications Allergies/Adverse Reactions: Allergies Allergy/AdvReac Type Severity Reaction Status Date / Time levofloxacin Allergy Hives Verified 10/17/17 20:14 cephalexin AdvReac Vomiting Verified 10/17/17 20:14 Sulfa (Sulfonamide AdvReac Vomiting Verified 10/17/17 20:14 Antibiotics) Home Medications: Home Medications Vicodin 10/500 1 tab PO Q4HR PRN 10/17/17 [History Confirmed 10/17/17] PMH/Surg Hx/FS Hx/Imm Hx Previously Healthy: No Endocrine History: Diabetes Cardiovascular History: Hypertension - Surgical History Surgical History: Yes Surgery Procedure, Year, and Place: , gallbladder removal, stents in her kidney for stones. TONSILECTOMY. PARATHYROIDECTOMY--2004, hysterctomy 2017, [place] 08/2017 - Family History Known Family History: Positive: Diabetes, Blood Disorder - several members with factor V Leiden Negative: Cardiac Disease, Hypertension - Social History Occupation: Disabled Lives: With Family Alcohol Use: None Substance Use Type: None Smoking Status (MU): Never Smoked Tobacco Review of Systems Constitutional: Negative Skin: Rash - inside nose, Other - yeast/red tenderness under breast Eyes: Negative ENT: Other - tounge red and painful Respiratory: Negative Cardiovascular: Negative Gastrointestinal: Negative Genitourinary: Negative Motor: Negative Neurovascular: Negative Musculoskeletal: Negative Neurological: Negative Psychological: Negative Is Patient Immunocompromised?: No All Other Systems Reviewed And Are Negative: Yes Physical Exam Triage Information Reviewed: Yes Appearance: Well-Appearing, No Pain Distress, Well-Nourished Vital Signs: Initial Vital Signs Temp 99.2 F 10/17/17 20:04 Pulse 95 10/17/17 20:04 Resp 18 10/17/17 20:04 BP 112/84 10/17/17 20:04 Pulse Ox 100 10/17/17 20:04 Vital Signs Reviewed: Yes Eye Exam: Normal Eyes: Positive: Conjunctiva Clear ENT Exam: Normal ENT: Positive: Normal ENT inspection, Hearing grossly normal, Pharyngeal erythema, Nasal drainage, Uvula midline. Negative: Tonsillar swelling, Tonsillar exudate, Trismus, Hoarse voice, Dental tenderness, Sinus tenderness Dental Exam: Normal Neck exam: Normal Neck: Positive: Supple, Nontender Respiratory Exam: Normal Respiratory: Positive: Chest non-tender, Lungs clear, Normal breath sounds, No respiratory distress, No accessory muscle use Cardiovascular Exam: Normal Cardiovascular: Positive: RRR, No Murmur, Pulses Normal, Brisk Capillary Refill Musculoskeletal Exam: Normal Musculoskeletal: Positive: Strength Intact, ROM Intact, No Edema Neurological Exam: Normal Neurological: Positive: Alert, Muscle Tone Normal Psychological Exam: Normal Skin Exam: Normal Skin: Positive: rashes - under breast, in nose Throat Pain/Nasal Course/Dx - Course Assessment/Plan: nystatin swish and swallow, topical nystatin under breast, acyclovir for HSV - Differential Dx/Diagnosis Provider Diagnoses: yeast infection on tounge, and under breast, 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
[2017-10-17] MEDS ORDERED: Mupirocin 2% OINT* TUBE TOPICAL ONE (20:41)
[2017-10-17] MEDS ORDERED: Acyclovir* 200 MG CAP PO ONE (20:41)
[2017-10-17] MEDS ORDERED: Nystatin SUSPENSION* 100000 UNITS/ML 5 ML UDC PO ONE (20:42)
== END 2017-10-17 20:57 | disposition home or self-care (01) ==
LOC: UCCORT 18:17
DX: B37.2 Candidiasis of skin and nail (principal); B37.0 Candidal stomatitis; B00.9 Herpesviral infection, unspecified
CPT/HCPCS: 87651; 99213; A9270-GY; G0463

== ENCOUNTER 2018-03-19 10:07 | Emergency (ER) | payer OTHER ==
--- OUTSIDE RECORDS SUMMARY | 2018-03-19 10:20 | XMS REPORT | Continuity of Care Document ---
:1975 External Reference #:[id number] Author Name Dom Singh M.D. Address [address] [facility] [address] [place] [address] Care Team Providers Name Role Phone Dom Singh M.D. 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 Administrator Unavailable Payers Type Date Identification Numbers Payment Provider Subscriber Policy Number: [id number] [facility] Gagan Sharpe PayID: [id number] [address] [place] [address] Advance Directives Description No Information Available Problems Description No Information Family History Date Family Member(s) Problem(s) Comments General Diabetes Mellitus Type 2 General Prostate Cancer General Heart Disease Father Prostate Cancer Father Heart Disease Father Diabetes Mellitus Type 2 Mother No Current Problems Children 3 Siblings 2 Grandchildren None Social History Type Date Description Comments Sex Unknown Marital Status Legal Status: Work Status Full-Time Employment ETOH Use Denies alcohol use Tobacco Use Start: Unknown Patient has never smoked Recreational Drug Use Denies Drug Use Smoking Status Reviewed: 06/25/17 Patient has never smoked Allergies, Adverse Reactions, Alerts Date Description Reaction Status Severity Comments 06/25/2017 Levofloxacin Active 06/25/2017 Canagliflozin Active Medications Medication Date Status Form Strength Qnty SIG Indications Ordering Provider Aspirin Adult Active Tablets DR 81mg 90tabs 1 by I82.702 Francisco, Low Dose 018 mouth Cresenciomapretty Rockwell, every day M.D. Hydrocodone-A Active Tablets 10-325mg 90tabs 1-2 tab M25.512 Francisco, cetaminophen 018 by mouth Dom Rockwell, every 4 M.D. 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 times a day Immunizations Description No Information Available Vital Signs Date Vital Result Comment 03/07/2018 4:18pm BP Systolic 136 mmHg BP Diastolic 62 mmHg Height 64 inches 5'4" Weight 208.00 lb BMI (Body Mass Index) 35.7 kg/m2 Heart Rate 86 /min Respiratory Rate 16 /min 02/06/2018 3:44pm BP Systolic 120 mmHg BP Diastolic 80 mmHg Height 64 inches 5'4" Weight 202.00 lb BMI (Body Mass Index) 34.7 kg/m2 Heart Rate 84 /min Respiratory Rate 16 /min 01/20/2018 2:12pm BP Systolic 108 mmHg BP Diastolic 60 mmHg Height 64 inches 5'4" Weight 210.00 lb BMI (Body Mass Index) 36.0 kg/m2 Heart Rate 72 /min Respiratory Rate 16 /min 12/17/2017 11:07am BP Systolic 116 mmHg BP Diastolic 64 mmHg Height 64 inches 5'4" Weight 208.00 lb BMI (Body Mass Index) 35.7 kg/m2 Heart Rate 87 /min Respiratory Rate 16 /min 11/25/2017 12:48pm BP Systolic 122 mmHg BP Diastolic 64 mmHg Height 64 inches 5'4" Weight 205.00 lb BMI (Body Mass Index) 35.2 kg/m2 Heart Rate 85 /min Respiratory Rate 18 /min 10/11/2017 1:30pm BP Systolic 112 mmHg BP Diastolic 60 mmHg Height 64 inches 5'4" Weight 200.00 lb BMI (Body Mass Index) 34.3 kg/m2 Heart Rate 70 /min Respiratory Rate 16 /min 09/23/2017 1:41pm BP Systolic 116 mmHg BP Diastolic 60 mmHg Height 64 inches 5'4" Weight 204.00 lb BMI (Body Mass Index) 35.0 kg/m2 Heart Rate 70 /min Respiratory Rate 16 /min 08/27/2017 11:05am BP Systolic 114 mmHg BP Diastolic 62 mmHg Height 64 inches 5'4" Weight 198.00 lb BMI (Body Mass Index) 34.0 kg/m2 Heart Rate 100 /min Body Temperature 97.5 F Respiratory Rate 16 /min 07/29/2017 10:22am BP Systolic 138 mmHg BP Diastolic 64 mmHg Height 64 inches 5'4" Weight 211.00 lb BMI (Body Mass Index) 36.2 kg/m2 Heart Rate 84 /min Respiratory Rate 16 /min 06/25/2017 10:16am BP Systolic 106 mmHg BP Diastolic 60 mmHg Height 64 inches 5'4" Weight 202.00 lb BMI (Body Mass Index) 34.7 kg/m2 Heart Rate 81 /min Body Temperature 97.7 F Respiratory Rate 16 /min Results Test Date Facility Test Result H/L Range Note Laboratory test 01/20/2018 [facility] [place] Measles Igg EQUIVOCAL AI 1 finding 113 [facility] [place] AB @ (607)- - Rubella Igm AB <10.0 2 Rubella Igg AB @ NEGATIVE AI 3 Varicella Zost Igg @ POSITIVE AI 4 Hep B S AB Quant @ NEGATIVE mIU/mL 5 Laboratory test finding 11/25/2017 [facility] Vitamin B12 339 pg/mL 211-946 PTH Intact 100 pg/mL High 15-65 Laboratory test 11/25/2017 [facility] ZNT8 Antibodies <15 U/mL 6 finding Lipid Profile 1 11/25/2017 [facility] Cholest SerPl-mCnc 209 mg/dL High <200 Trigl SerPl-mCnc 260 mg/dL High <150 HDLc SerPl-mCnc 45 mg/dL Low >50 LDLc SerPl Calc-mCnc 112 mg/dL High <100 VLDLc SerPl Calc-mCnc 52 mg/dL High 16-42 NonHDLc SerPl-mCnc 164 mg/dL High <130 Comprehensive Metabolic 11/25/2017 [facility] Albumin SerPl 4.3 g/dL 3.5-5.2 Swain BCG-mCnc Bilirub SerPl-mCnc 0.2 mg/dL <1.2 Calcium SerPl-mCnc 9.4 mg/dL 8.6-10.0 Chloride SerPl-sCnc 101 mmol/L 98-107 Creat SerPl-mCnc 0.97 mg/dL 0.4-1.0 Glucose SerPl-mCnc 102 mg/dL 70-140 Alp SerPl-cCnc 75 U/L 35-104 Potassium SerPl-sCnc 4.6 mmol/L 3.5-5.1 Prot SerPl-mCnc 7.5 g/dL 6.4-8.3 Sodium SerPl-sCnc 139 mmol/L 136-145 Ast SerPl-cCnc 14 U/L <32 BUN SerPl-mCnc 11 mg/dL 6-20 Osmolality SerPl Calc 288 mosm/kg 275-300 Creat/Urea nit SerPl 11 Hco3 Ser-sCnc 27 mmol/L 22-29 Alt SerPl-cCnc 18 U/L <33 Anion Gap3 SerPl-sCnc 11 mmol/L 8-15 Albumin/Glob SerPl 1.3 GFR/Bsa pred.non black SerPl MDRD-ArVRat 72 mL/min/1.73m2 >60 GFR/Bsa pred.black SerPl MDRD-ArVRat 83 mL/min/1.73m2 >60 Laboratory test finding 11/25/2017 [facility] Vit D 25 Hydroxy 11 ng/mL Low >30 Total C-Peptide 4.1 ng/mL 0.8-5.2 Anthony-65 Autoantibody <5.0 U/mL 0.0-5.0 7 Ia-2 Autoantibodies <1.0 U/mL 8 Calculi,Urinary,With Photo 11/13/2017 [facility] Color Funez . 9 Size (SEE NOTE) 10 Weight 138.8 mg . Composition (SEE NOTE) 11 Ca Oxalate,Dihydrate 55 % . Ca Oxalate,Monohydrate 40 % . Calcium Phosphate 05 % . Nidus No Nidus visuali <SEE NOTE> . 12 Comment Note: . 13 . (SEE NOTE) 14 . (SEE NOTE) 15 . (SEE NOTE) 16 Disclaimer (SEE NOTE) 17 Comprehensive Metabolic Panel 11/08/2017 [facility] Glucose 257 mg/dL High 74-106 18 BUN 7 mg/dL 7-18 Creatinine 1.2 mg/dL 0.6-1.3 Glom Filtration Rate, Estimate 53 mL/min >60 If >60 mL/min >60 19 BUN/Creat 5.8 ratio Sodium 139 mmol/L 136-145 Potassium 4.0 mmol/L 3.5-5.1 Chloride 104 mmol/L 98-107 Carbon Dioxide 29 mmol/L 21-32 Anion Gap 6 mEq/L Low 8-16 Calcium 9.2 mg/dL 8.5-10.1 Total Protein 8.1 g/dL 6.4-8.2 Albumin 3.6 g/dL 3.4-5.0 Globulin 4.5 g/dL High 1.9-4.3 Alb/Glob 0.8 ratio Bilirubin,Total 0.2 mg/dL 0.2-1.0 Sgot/Ast 25 U/L 15-37 SGPT/Alt 30 U/L 12-78 Alkaline Phosphatase 81 U/L 45-117 CBS W/Automated Diff 11/08/2017 [facility] White Blood Count 5.7 K/uL 3.1- 10.7 Red Blood Count 4.65 M/uL 3.90-5.40 Hemoglobin 13.6 gm/dL 11.6-15.8 Hematocrit 42.0 % 36.0-46.1 Mean Cell Volume 90.3 fl 80.9-99.0 Mean Corpuscular HGB 29.2 pg 25.9-32.7 Mean Corpuscular HGB Conc 32.4 g/dL 30.8-34.3 Platelet Count 241 K/uL 155-360 Red Cell Distri Width SD 46.5 fl 3-47 Red Cell Distri Width %CV 14.4 % 11.7-14.4 Mean Platelet Volume 11.3 fL 8.9-12.4 Neut% 44.3 % 40.4-72.8 Lymph % 35.6 % 20.0-42.0 [place] % 9.8 % 4.3-13.2 Eo% 9.8 % High 0.0-6.6 Bas% 0.5 % 0.0-1.1 Neut# 2.54 K/uL 1.8-7.0 Lymph # 2.04 K/uL 1.0-4.0 [place] # 0.56 K/uL 0.3-0.9 Eos # 0.56 K/uL High 0.0-0.5 Baso # 0.03 K/uL 0.0-0.1 Urine Culture 11/08/2017 [facility] Urine Culture MIXED URETHRAL F <SEE NOTE > 20 Quantity 10,000 - 50,000 <SEE NOTE> 21 Urinalysis With Microscopic 11/08/2017 [facility] Urine Color YELLOW Yellow Urine Clarity CLEAR Clear Urine Glucose - Dipstick >=1000 mg/dL High Negative Urine Bilirubin - Dipstick NEGATIVE Negative Urine Ketone NEGATIVE mg/dL Negative Urine Specific [place] 1.025 1.010-1.030 Urine Blood MODERATE Negative Urine PH 6.0 Low 6.5-7.5 Urine Protein - Dipstick TRACE mg/dL Negative Urine Urobilinogen - Dipstick 0.2 E.U./dL 0.2-1.0 Urine Nitrite - Dipstick NEGATIVE Negative Urine Leuk Esterase TRACE Negative Urine RBC 10-20 rbc/hpf High 0-2 Urine WBC 5-10 wbc/hpf 0-7 Urine Epithelial Cells VERY FEW /lpf None Seen Source: URINE, CLEAN CAT <SEE NOTE> 22 CBS W/Automated Diff 2017 [facility] White Blood Count 7.3 K/uL 3.1- 10.7 23 Red Blood Count 4.30 M/uL 3.90-5.40 Hemoglobin 12.7 gm/dL 11.6-15.8 Hematocrit 38.4 % 36.0-46.1 Mean Cell Volume 89.3 fl 80.9-99.0 Mean Corpuscular HGB 29.5 pg 25.9-32.7 Mean Corpuscular HGB Conc 33.1 g/dL 30.8-34.3 Platelet Count 276 K/uL 155-360 Red Cell Distri Width SD 44.0 fl 3-47 Red Cell Distri Width %CV 13.8 % 11.7-14.4 Mean Platelet Volume 11.1 fL 8.9-12.4 Neut% 48.7 % 40.4-72.8 Lymph % 37.5 % 20.0-42.0 [place] % 7.7 % 4.3-13.2 Eo% 5.7 % 0.0-6.6 Bas% 0.4 % 0.0-1.1 Neut# 3.53 K/uL 1.8-7.0 Lymph # 2.72 K/uL 1.0-4.0 Tr[place]ble # 0.56 K/uL 0.3-0.9 Eos # 0.41 K/uL 0.0-0.5 Baso # 0.03 K/uL 0.0-0.1 Ua RFX Micro & Culture II 2017 [facility] Urine Color YELLOW Yellow Urine Clarity CLEAR Clear Urine Glucose - Dipstick NEGATIVE mg/dL Negative Urine Bilirubin - Dipstick NEGATIVE Negative Urine Ketone NEGATIVE mg/dL Negative Urine Specific [place] >=1.030 1.010-1.030 Urine Blood NEGATIVE Negative Urine PH 6.0 Low 6.5-7.5 Urine Protein - Dipstick NEGATIVE mg/dL Negative Urine Urobilinogen - Dipstick 0.2 E.U./dL 0.2-1.0 Urine Nitrite - Dipstick NEGATIVE Negative Urine Leuk Esterase NEGATIVE Negative Source: URINE, CLEAN CAT <SEE NOTE> 24 CBS W/Automated Diff 11/02/2017 [facility] White Blood Count 9.7 K/uL 3.1- 10.7 25 Red Blood Count 4.77 M/uL 3.90-5.40 Hemoglobin 14.1 gm/dL 11.6-15.8 Hematocrit 42.3 % 36.0-46.1 Mean Cell Volume 88.7 fl 80.9-99.0 Mean Corpuscular HGB 29.6 pg 25.9-32.7 Mean Corpuscular HGB Conc 33.3 g/dL 30.8-34.3 Platelet Count 344 K/uL 155-360 Red Cell Distri Width SD 44.6 fl 3-47 Red Cell Distri Width %CV 14.0 % 11.7-14.4 Mean Platelet Volume 11.1 fL 8.9-12.4 Neut% 49.2 % 40.4-72.8 Lymph % 37.8 % 20.0-42.0 [place] % 7.6 % 4.3-13.2 Eo% 5.0 % 0.0-6.6 Bas% 0.4 % 0.0-1.1 Neut# 4.76 K/uL 1.8-7.0 Lymph # 3.66 K/uL 1.0-4.0 Tr[place]ble # 0.74 K/uL 0.3-0.9 Eos # 0.48 K/uL 0.0-0.5 Baso # 0.04 K/uL 0.0-0.1 Ua RFX Micro & Culture II 11/02/2017 [facility] Urine Color YELLOW Yellow Urine Clarity CLEAR Clear Urine Glucose - Dipstick 100 mg/dL High Negative Urine Bilirubin - Dipstick NEGATIVE Negative Urine Ketone NEGATIVE mg/dL Negative Urine Specific [place] >=1.030 1.010-1.030 Urine Blood NEGATIVE Negative Urine PH 6.0 Low 6.5-7.5 Urine Protein - Dipstick NEGATIVE mg/dL Negative Urine Urobilinogen - Dipstick 0.2 E.U./dL 0.2-1.0 Urine Nitrite - Dipstick NEGATIVE Negative Urine Leuk Esterase NEGATIVE Negative Source: URINE, CLEAN CAT <SEE NOTE> 26 Comprehensive Metabolic Panel 11/02/2017 [facility] Glucose 174 mg/dL High 74-106 BUN 9 mg/dL 7-18 Creatinine 1.1 mg/dL 0.6-1.3 Glom Filtration Rate, Estimate 58 mL/min >60 If >60 mL/min >60 27 BUN/Creat 8.1 ratio Sodium 140 mmol/L 136-145 Potassium 3.5 mmol/L 3.5-5.1 Chloride 107 mmol/L 98-107 Carbon Dioxide 27 mmol/L 21-32 Anion Gap 6 mEq/L Low 8-16 Calcium 8.8 mg/dL 8.5-10.1 Total Protein 8.1 g/dL 6.4-8.2 Albumin 3.8 g/dL 3.4-5.0 Globulin 4.3 g/dL 1.9-4.3 Alb/Glob 0.9 ratio Bilirubin,Total 0.2 mg/dL 0.2-1.0 Sgot/Ast 11 U/L Low 15-37 28 SGPT/Alt 17 U/L 12-78 Alkaline Phosphatase 89 U/L 45-117 Laboratory test finding 11/02/2017 [facility] Lipase 536 U/L High 56-289 29 HCG,Serum (Qualitative) NEGATIVE (Negative) 30 Laboratory test 10/17/2017 [facility] Rapid Strep Negative Negative 31 finding Molecular CBC 10/09/2017 [facility] White Blood Count 8.6 K/uL 3.1-10.7 32 Red Blood Count 4.51 M/uL 3.90-5.40 Hemoglobin 13.1 gm/dL 11.6-15.8 Hematocrit 39.4 % 36.0-46.1 Mean Cell Volume 87.4 fl 80.9-99.0 Mean Corpuscular HGB 29.0 pg 25.9-32.7 Mean Corpuscular HGB Conc 33.2 g/dL 30.8-34.3 Platelet Count 230 K/uL 155-360 Red Cell Distri Width %CV 14.4 % 11.7-14.4 Mean Platelet Volume 11.3 fL 8.9-12.4 Glycohemoglobin A1c 10/09/2017 [facility] Glycohemoglobin (A1c) 7.7 % High 4.2-6.3 33 eAG 174 mg/dL CBC 10/08/2017 [facility] White Blood Count 9.7 K/uL 3.1-10.7 Red Blood Count 4.66 M/uL 3.90-5.40 Hemoglobin 13.7 gm/dL 11.6-15.8 Hematocrit 40.6 % 36.0-46.1 Mean Cell Volume 87.1 fl 80.9-99.0 Mean Corpuscular HGB 29.4 pg 25.9-32.7 Mean Corpuscular HGB Conc 33.7 g/dL 30.8-34.3 Platelet Count 205 K/uL 155-360 Red Cell Distri Width %CV 14.2 % 11.7-14.4 Mean Platelet Volume 10.4 fL 8.9-12.4 Protime 10/08/2017 [facility] Protime 14.4 seconds 12.0-14.4 Inr 1.1 0.9-1.1 34 Laboratory test 10/07/2017 [facility] Urine HCG NEGATIVE Negative 35, 36 finding (Qualitative) Iron-Tibc-%Sat 09/02/2017 [facility] Serum Iron 51 g/dL 50-170 37 Total Iron Binding Capacity 347 g/dL 250-450 Transferrin %Saturation 15 % 12-57 Vitamin B12 And Folate 09/02/2017 [facility] Vitamin B12 253 pg/mL 193- 986 Folic Acid 7.2 ng/mL 3.1-17.5 Laboratory test finding 09/02/2017 [facility] Ferritin 96 ng/mL 8-252 Comprehensive Metabolic Panel 09/02/2017 [facility] Glucose 133 mg/dL High 74-106 BUN 10 mg/dL 7-18 Creatinine 1.0 mg/dL 0.6-1.3 Glom Filtration Rate, Estimate >60 mL/min >60 If >60 mL/min >60 38 BUN/Creat 10.0 ratio Sodium 139 mmol/L 136-145 Potassium 4.1 mmol/L 3.5-5.1 Chloride 109 mmol/L High 98-107 Carbon Dioxide 24 mmol/L 21-32 Anion Gap 6 mEq/L Low 8-16 Calcium 9.1 mg/dL 8.5-10.1 Total Protein 8.0 g/dL 6.4-8.2 Albumin 3.7 g/dL 3.4-5.0 Globulin 4.3 g/dL 1.9-4.3 Alb/Glob 0.9 ratio Bilirubin,Total 0.2 mg/dL 0.2-1.0 Sgot/Ast 11 U/L Low 15-37 39 SGPT/Alt 23 U/L 12-78 Alkaline Phosphatase 82 U/L 45-117 CBS W/Automated Diff 09/02/2017 [facility] White Blood Count 10.1 K/uL 3.1 -10.7 Red Blood Count 4.56 M/uL 3.90-5.40 Hemoglobin 13.3 gm/dL 11.6-15.8 Hematocrit 41.0 % 36.0-46.1 Mean Cell Volume 89.9 fl 80.9-99.0 Mean Corpuscular HGB 29.2 pg 25.9-32.7 Mean Corpuscular HGB Conc 32.4 g/dL 30.8-34.3 Platelet Count 334 K/uL 155-360 Red Cell Distri Width SD 47.4 fl High 3-47 Red Cell Distri Width %CV 14.9 % High 11.7-14.4 Mean Platelet Volume 11.9 fL 8.9-12.4 Neut% 52.6 % 40.4-72.8 Lymph % 37.1 % 20.0-42.0 [place] % 7.1 % 4.3-13.2 Eo% 2.8 % 0.0-6.6 Bas% 0.4 % 0.0-1.1 Neut# 5.29 K/uL 1.8-7.0 Lymph # 3.73 K/uL 1.0-4.0 [place] # 0.71 K/uL 0.3-0.9 Eos # 0.28 K/uL 0.0-0.5 Baso # 0.04 K/uL 0.0-0.1 Laboratory test 08/28/2017 [facility] C. Difficile Toxin Negative for tox 40 finding B By PCR <SEE NOTE> Type And Screen 08/07/2017 [facility] Patient Blood Type A POS 41 Antibody Screen Negative Negative Comprehensive Metabolic Panel 08/07/2017 [facility] Glucose 185 mg/dL High 74-106 BUN 8 mg/dL 7-18 Creatinine 1.0 mg/dL 0.6-1.3 Glom Filtration Rate, Estimate >60 mL/min >60 If >60 mL/min >60 42 BUN/Creat 8.0 ratio Sodium 139 mmol/L 136-145 Potassium 3.9 mmol/L 3.5-5.1 Chloride 107 mmol/L 98-107 Carbon Dioxide 27 mmol/L 21-32 Anion Gap 5 mEq/L Low 8-16 Calcium 9.0 mg/dL 8.5-10.1 Total Protein 8.6 g/dL High 6.4-8.2 Albumin 3.8 g/dL 3.4-5.0 Globulin 4.8 g/dL High 1.9-4.3 Alb/Glob 0.8 ratio Bilirubin,Total 0.5 mg/dL 0.2-1.0 Sgot/Ast 14 U/L Low 15-37 43 SGPT/Alt 30 U/L 12-78 Alkaline Phosphatase 72 U/L 45-117 Laboratory test 08/07/2017 [facility] Act Partial 34.0 seconds 23.4-35.0 44 finding Thrombo Time Protime 08/07/2017 [facility] Protime 17.9 seconds High 12.0-14.4 Inr 1.5 High 0.9-1.1 45 CBS W/Automated Diff 08/07/2017 [facility] White Blood Count 6.9 K/uL 3.1- 10.7 Red Blood Count 4.48 M/uL 3.90-5.40 Hemoglobin 13.1 gm/dL 11.6-15.8 Hematocrit 40.7 % 36.0-46.1 Mean Cell Volume 90.8 fl 80.9-99.0 Mean Corpuscular HGB 29.2 pg 25.9-32.7 Mean Corpuscular HGB Conc 32.2 g/dL 30.8-34.3 Platelet Count 321 K/uL 155-360 Red Cell Distri Width SD 46.5 fl 3-47 Red Cell Distri Width %CV 14.3 % 11.7-14.4 Mean Platelet Volume 11.0 fL 8.9-12.4 Neut% 59.4 % 40.4-72.8 Lymph % 28.8 % 20.0-42.0 [place] % 8.6 % 4.3-13.2 Eo% 2.6 % 0.0-6.6 Bas% 0.6 % 0.0-1.1 Neut# 4.12 K/uL 1.8-7.0 Lymph # 2.00 K/uL 1.0-4.0 [place] # 0.60 K/uL 0.3-0.9 Eos # 0.18 K/uL 0.0-0.5 Baso # 0.04 K/uL 0.0-0.1 Urine Culture 08/07/2017 [facility] Urine Culture MIXED URETHRAL F <SEE NOTE > 46 Quantity < 10,000 CFU/mL Culture If Indicated 08/07/2017 [facility] Culture If Indicated CULTURE TO FOLLO 47 Comment Comment <SEE NOTE> Source: URINE, CLEAN CAT <SEE NOTE> 48 Urinalysis With Microscopic 08/07/2017 [facility] Urine Color BLOODY Yellow Urine Clarity CLOUDY Clear Urine Glucose - Dipstick NEGATIVE mg/dL Negative Urine Bilirubin - Dipstick NEGATIVE Negative Urine Ketone TRACE mg/dL High Negative Urine Specific [place] >=1.030 1.010-1.030 Urine Blood LARGE Negative Urine PH 5.0 Low 6.5-7.5 Urine Protein - Dipstick 100 mg/dL High Negative Urine Urobilinogen - Dipstick 1.0 E.U./dL 0.2-1.0 Urine Nitrite - Dipstick POSITIVE Negative Urine Leuk Esterase TRACE Negative Urine RBC TNTC rbc/hpf High 0-2 Urine WBC 0-2 wbc/hpf 0-7 Urine Epithelial Cells FEW /lpf None Seen Urine Calcium Oxalate Crystals FEW None Seen Urine Bacteria MODERATE None Seen Urine Amorph Sediment SMALL Negative Source: URINE, CLEAN CAT <SEE NOTE> 49 Methylenetetrahydrofolate Redu 07/30/2017 [facility] MTHFR,Dna (SEE NOTE) 50, 51 Analysis References (SEE NOTE) 52 Factor II Dna Analysis 07/30/2017 [facility] Factor II, Dna Analysis (SEE NOTE) 53 Additional Information (SEE NOTE) 54 Protein S Deficiency 07/30/2017 [facility] Protein S,Functional 89 % 63- 140 55 Profile Protein S,Total 93 % 60-150 56 Protein S,Free 84 % 57-157 57 Protein C Deficiency 07/30/2017 [facility] Protein C,Functional 145 % 73- 180 58 Profile Protein C,Antigen 103 % 60-150 Laboratory test finding 07/30/2017 [facility] DRVVT Mix 54.3 sec High 0.0- 47.0 DRVVT Confirm 1.3 ratio High 0.8-1.2 Lupus Anticoagulant Reflex 07/30/2017 [facility] PTT-LA 45.9 sec 0.0-51.9 DRVVT 70.5 sec High 0.0-47.0 Note: Comment: . 59 Antithrombin III Panel 07/30/2017 [facility] Antithrombin III 122 % 75- 135 60 Activity Antithrombin III Antigen 105 % 72-124 61 Anticardiolipin AB 07/30/2017 [facility] Anticardiolipin Igg < 9 GPLU/mL 0 -14 62 Iga/Igg/Igm Anticardiolipin Igm, Quant 10 MPLU/mL 0-12 63 Anticardiolipin Iga < 9 APLU/mL 0-11 64 Laboratory test finding 07/30/2017 [facility] Sedimentation Rate 11 mm/hr 0-20 65 Laboratory test finding 07/30/2017 [facility] Ferritin 23 ng/mL 8-252 Vitamin B12 And Folate 07/30/2017 [facility] Vitamin B12 320 pg/mL 193- 986 Folic Acid 5.9 ng/mL 3.1-17.5 Iron-Tibc-%Sat 07/30/2017 [facility] Serum Iron 38 g/dL Low 50-170 Total Iron Binding Capacity 281 g/dL 250-450 Transferrin %Saturation 14 % 12-57 CBS W/Automated Diff 07/30/2017 [facility] White Blood Count 7.3 K/uL 3.1- 10.7 Red Blood Count 4.46 M/uL 3.90-5.40 Hemoglobin 13.2 gm/dL 11.6-15.8 Hematocrit 40.2 % 36.0-46.1 Mean Cell Volume 90.1 fl 80.9-99.0 Mean Corpuscular HGB 29.6 pg 25.9-32.7 Mean Corpuscular HGB Conc 32.8 g/dL 30.8-34.3 Platelet Count 291 K/uL 155-360 Red Cell Distri Width SD 46.6 fl 3-47 Red Cell Distri Width %CV 14.5 % High 11.7-14.4 Mean Platelet Volume 11.2 fL 8.9-12.4 Neut% 55.3 % 40.4-72.8 Lymph % 31.8 % 20.0-42.0 [place] % 7.7 % 4.3-13.2 Eo% 4.7 % 0.0-6.6 Bas% 0.5 % 0.0-1.1 Neut# 4.03 K/uL 1.8-7.0 Lymph # 2.32 K/uL 1.0-4.0 [place] # 0.56 K/uL 0.3-0.9 Eos # 0.34 K/uL 0.0-0.5 Baso # 0.04 K/uL 0.0-0.1 Laboratory test finding 07/30/2017 [facility] Amylase 43 U/L 25-115 Lipase 143 U/L 56-289 Comprehensive Metabolic Panel 07/30/2017 [facility] Glucose 97 mg/dL 74- 106 BUN 6 mg/dL Low 7-18 Creatinine 1.0 mg/dL 0.6-1.3 Glom Filtration Rate, Estimate >60 mL/min >60 If >60 mL/min >60 66 BUN/Creat 6.0 ratio Sodium 143 mmol/L 136-145 Potassium 3.6 mmol/L 3.5-5.1 Chloride 110 mmol/L High 98-107 Carbon Dioxide 25 mmol/L 21-32 Anion Gap 8 mEq/L 8-16 Calcium 8.7 mg/dL 8.5-10.1 Total Protein 7.7 g/dL 6.4-8.2 Albumin 3.4 g/dL 3.4-5.0 Globulin 4.3 g/dL 1.9-4.3 Alb/Glob 0.8 ratio Bilirubin,Total 0.2 mg/dL 0.2-1.0 Sgot/Ast 28 U/L 15-37 SGPT/Alt 29 U/L 12-78 Alkaline Phosphatase 73 U/L 45-117 Laboratory test 07/29/2017 [facility] Sedimentation Rate 31 mm/hr High 0- 20 67, 68 finding CBS W/Automated 07/29/2017 [facility] White Blood Count 6.9 K/uL 3.1-10.7 Diff Red Blood Count 4.24 M/uL 3.90-5.40 Hemoglobin 12.6 gm/dL 11.6-15.8 Hematocrit 37.9 % 36.0-46.1 Mean Cell Volume 89.4 fl 80.9-99.0 Mean Corpuscular HGB 29.7 pg 25.9-32.7 Mean Corpuscular HGB Conc 33.2 g/dL 30.8-34.3 Platelet Count 295 K/uL 155-360 Red Cell Distri Width SD 45.1 fl 3-47 Red Cell Distri Width %CV 14.3 % 11.7-14.4 Mean Platelet Volume 11.1 fL 8.9-12.4 Neut% 59.0 % 40.4-72.8 Lymph % 24.5 % 20.0-42.0 [place] % 11.4 % 4.3-13.2 Eo% 4.8 % 0.0-6.6 Bas% 0.3 % 0.0-1.1 Neut# 4.10 K/uL 1.8-7.0 Lymph # 1.70 K/uL 1.0-4.0 [place] # 0.79 K/uL 0.3-0.9 Eos # 0.33 K/uL 0.0-0.5 Baso # 0.02 K/uL 0.0-0.1 Laboratory test finding 07/29/2017 [facility] Amylase 45 U/L 25-115 Lipase 204 U/L 56-289 Comprehensive Metabolic Panel 07/29/2017 [facility] Glucose 180 mg/dL High 74-106 BUN 5 mg/dL Low 7-18 Creatinine 0.9 mg/dL 0.6-1.3 Glom Filtration Rate, Estimate >60 mL/min >60 If >60 mL/min >60 69 BUN/Creat 5.5 ratio Sodium 142 mmol/L 136-145 Potassium 3.8 mmol/L 3.5-5.1 Chloride 106 mmol/L 98-107 Carbon Dioxide 29 mmol/L 21-32 Anion Gap 7 mEq/L Low 8-16 Calcium 8.4 mg/dL Low 8.5-10.1 Total Protein 6.8 g/dL 6.4-8.2 Albumin 3.1 g/dL Low 3.4-5.0 Globulin 3.7 g/dL 1.9-4.3 Alb/Glob 0.8 ratio Bilirubin,Total 0.2 mg/dL 0.2-1.0 Sgot/Ast 19 U/L 15-37 SGPT/Alt 29 U/L 12-78 Alkaline Phosphatase 72 U/L 45-117 Laboratory test finding 07/29/2017 [facility] Sedimentation Rate <pending> Amylase <pending> Lipase <pending> Laboratory test finding 07/29/2017 [facility] Troponin-I < 0.015 ng/mL 70 Comprehensive Metabolic 07/25/2017 [place] Glucose 113 mg/dL High 74- 106 71 Panel BUN 6 mg/dL Low 7-18 Creatinine 0.8 mg/dL 0.6-1.3 Glom Filtration Rate, Estimate >60 mL/min >60 If >60 mL/min >60 72 BUN/Creat 7.5 ratio Sodium 143 mmol/L 136-145 Potassium 3.9 mmol/L 3.5-5.1 Chloride 112 mmol/L High 98-107 Carbon Dioxide 26 mmol/L 21-32 Anion Gap 5 mEq/L Low 8-16 Calcium 7.4 mg/dL Low 8.5-10.1 Total Protein 5.7 g/dL Low 6.4-8.2 Albumin 2.6 g/dL Low 3.4-5.0 Globulin 3.1 g/dL 1.9-4.3 Alb/Glob 0.8 ratio Bilirubin,Total 0.4 mg/dL 0.2-1.0 Sgot/Ast 25 U/L 15-37 SGPT/Alt 22 U/L 12-78 Alkaline Phosphatase 60 U/L 45-117 CBS W/Automated Diff 07/25/2017 [place] White Blood Count 7.9 K/uL 3.1- 10.7 Red Blood Count 3.79 M/uL Low 3.90-5.40 Hemoglobin 11.1 gm/dL Low 11.6-15.8 Hematocrit 34.1 % Low 36.0-46.1 Mean Cell Volume 90.0 fl 80.9-99.0 Mean Corpuscular HGB 29.3 pg 25.9-32.7 Mean Corpuscular HGB Conc 32.6 g/dL 30.8-34.3 Platelet Count 225 K/uL 155-360 Red Cell Distri Width SD 43.3 fl 3-47 Red Cell Distri Width %CV 13.6 % 11.7-14.4 Mean Platelet Volume 10.4 fL 8.9-12.4 Neut% 67.8 % 40.4-72.8 Lymph % 22.7 % 20.0-42.0 [place] % 8.9 % 4.3-13.2 Eo% 0.3 % 0.0-6.6 Bas% 0.3 % 0.0-1.1 Neut# 5.35 K/uL 1.8-7.0 Lymph # 1.79 K/uL 1.0-4.0 [place] # 0.70 K/uL 0.3-0.9 Eos # 0.02 K/uL 0.0-0.5 Baso # 0.02 K/uL 0.0-0.1 Laboratory test 07/25/2017 [facility] Slide Review . 73 finding Chlamydia/GC Cheryle 07/24/2017 [facility] Chlamydia Negative Negative Trachomatis, Cheryle Neisseria Gonorrhoeae, Cheryle Negative Negative Please note: (SEE NOTE) 74 Affirm Vaginitis 07/24/2017 [place] Trichomonas vaginalis Negative [ Negative] Panel Gardnerella vaginalis Negative [Negative] Muna species Negative [Negative] 75 Laboratory test 07/24/2017 [place] HPV High Risk - Results on file 76 finding Alt Ref Lab Protime 07/24/2017 [facility] Protime 13.4 seconds 12.0-14.4 Inr 1.0 0.9-1.1 77 Hemoglobin/Hematocrit 07/24/2017 [facility] Hemoglobin 11.8 gm/dL 11.6- 15.8 Hematocrit 36.1 % 36.0-46.1 Comprehensive Metabolic Panel 07/24/2017 [place] Glucose 117 mg/dL High 74-106 BUN 6 mg/dL Low 7-18 Creatinine 0.9 mg/dL 0.6-1.3 Glom Filtration Rate, Estimate >60 mL/min >60 If >60 mL/min >60 78 BUN/Creat 6.6 ratio Sodium 144 mmol/L 136-145 Potassium 3.9 mmol/L 3.5-5.1 Chloride 112 mmol/L High 98-107 Carbon Dioxide 29 mmol/L 21-32 Anion Gap 3 mEq/L Low 8-16 Calcium 7.6 mg/dL Low 8.5-10.1 Total Protein 6.0 g/dL Low 6.4-8.2 Albumin 2.7 g/dL Low 3.4-5.0 Globulin 3.3 g/dL 1.9-4.3 Alb/Glob 0.8 ratio Bilirubin,Total 0.4 mg/dL 0.2-1.0 Sgot/Ast 13 U/L Low 15-37 79 SGPT/Alt 21 U/L 12-78 Alkaline Phosphatase 63 U/L 45-117 Laboratory test finding 07/24/2017 [place] Magnesium 1.6 mg/dL Low 1.8- 2.4 C-Reactive Protein,Quant 4.8 mg/L High <3.0 CBS W/Automated Diff 07/24/2017 [place] White Blood Count 7.0 K/uL 3.1- 10.7 Red Blood Count 3.95 M/uL 3.90-5.40 Hemoglobin 11.6 gm/dL 11.6-15.8 Hematocrit 35.8 % Low 36.0-46.1 Mean Cell Volume 90.6 fl 80.9-99.0 Mean Corpuscular HGB 29.4 pg 25.9-32.7 Mean Corpuscular HGB Conc 32.4 g/dL 30.8-34.3 Platelet Count 240 K/uL 155-360 Red Cell Distri Width SD 44.0 fl 3-47 Red Cell Distri Width %CV 13.6 % 11.7-14.4 Mean Platelet Volume 11.1 fL 8.9-12.4 Neut% 61.8 % 40.4-72.8 Lymph % 27.9 % 20.0-42.0 [place] % 7.8 % 4.3-13.2 Eo% 2.4 % 0.0-6.6 Bas% 0.1 % 0.0-1.1 Neut# 4.33 K/uL 1.8-7.0 Lymph # 1.96 K/uL 1.0-4.0 Trimble # 0.55 K/uL 0.3-0.9 Eos # 0.17 K/uL 0.0-0.5 Baso # 0.01 K/uL 0.0-0.1 Ua RFX Micro & Culture II 07/23/2017 [place] Urine Color YELLOW Yellow 80 Urine Clarity CLEAR Clear Urine Glucose - Dipstick NEGATIVE mg/dL Negative Urine Bilirubin - Dipstick NEGATIVE Negative Urine Ketone NEGATIVE mg/dL Negative Urine Specific [place] >=1.030 1.010-1.030 Urine Blood NEGATIVE Negative Urine PH 6.0 Low 6.5-7.5 Urine Protein - Dipstick NEGATIVE mg/dL Negative Urine Urobilinogen - Dipstick 0.2 E.U./dL 0.2-1.0 Urine Nitrite - Dipstick NEGATIVE Negative Urine Leuk Esterase NEGATIVE Negative Source: URINE, CLEAN CAT <SEE NOTE> 81 CBS W/Automated Diff 07/23/2017 [place] White Blood Count 8.5 K/uL 3.1- 10.7 Red Blood Count 4.71 M/uL 3.90-5.40 Hemoglobin 13.8 gm/dL 11.6-15.8 Hematocrit 41.5 % 36.0-46.1 Mean Cell Volume 88.1 fl 80.9-99.0 Mean Corpuscular HGB 29.3 pg 25.9-32.7 Mean Corpuscular HGB Conc 33.3 g/dL 30.8-34.3 Platelet Count 338 K/uL 155-360 Red Cell Distri Width SD 43.4 fl 3-47 Red Cell Distri Width %CV 13.8 % 11.7-14.4 Mean Platelet Volume 10.8 fL 8.9-12.4 Neut% 57.3 % 40.4-72.8 Lymph % 33.7 % 20.0-42.0 Trimble % 6.2 % 4.3-13.2 Eo% 2.4 % 0.0-6.6 Bas% 0.4 % 0.0-1.1 Neut# 4.87 K/uL 1.8-7.0 Lymph # 2.86 K/uL 1.0-4.0 Tr[place]ble # 0.53 K/uL 0.3-0.9 Eos # 0.20 K/uL 0.0-0.5 Baso # 0.03 K/uL 0.0-0.1 Ionized Calcium 06/25/2017 [facility] Calcium Ionized 4.76 mg/dL (4.64 -5.28) 82 113 [employer] (607)- - Laboratory test 06/25/2017 [facility] Calcium 8.8 mg/dL (8.4-10.2) finding 113 [facility] [place] (607)- - Lipid 06/25/2017 [facility] [place] Cholesterol @ 184 mg/dL (0-200) 113 [facility] (607)- - Triglyceride @ 93 mg/dL (30-200) HDL Cholesterol @ 54 mg/dL (>40) 83 Chol/HDL Ratio 3.4 RATIO 84 LDL Chol (Calc) 111 mg/dL (<130) 85 Laboratory 06/25/2017 [facility] TSH,Ultrasensitive @ 1.550 (0.360- 4.170) test finding 113 [facility] [place] mIU/L (607)- - Free Thyroxine @ 1.19 ng/dL (0.76-1.46) [place] Urine Albumin @ 06/25/2017 [facility] [place] Albumin, Urine 3.33 mg/dL [address] [place] [address] (607)- - Creatinine,Urine 337.00 mg/dL Alb/Creatinine Ratio 9.9 ug/mg (0.0-29.9) Hemoglobin A1c 06/25/2017 [facility] [place] Hemoglobin A1c @ 10.2 % High (4.0- 6.0) 113 [employer] (607)- - Est Average Glucose 246 mg/dL 86 CMP 06/25/2017 [facility] [place] Sodium 141 mmol/L (136-145) 113 [facility] (600)- - Potassium 4.6 mmol/L (3.6-5.2) Chloride 103 mmol/L [...] >60 ml/min/1.73m2 (>59) GFR Interpretation <SEE NOTE> 87 CBC With Diff 06/25/2017 [facility] [place] WBC 9.1 10*3/uL (4.1-11.0) 113 [employer] [place] (607)- - RBC 5.04 10*6/uL (4.00-5.40) HGB 14.4 g/dL (12.0-16.0) HCT 45.3 % (36.0-47.0) MCV 89.7 fL (80.0-95.0) MCH 28.5 pg (27.0-32.0) MCHC 31.8 g/dL Low (32.0-36.0) RDW 15.0 % High (10.5-14.5) PLT 319 10*3/uL (150-450) MPV 9.7 fL (7.1-10.7) Neut % 60.8 % (35.0-75.0) Lymph % 29.8 % (16.0-52.0) [place] % 5.5 % (0.0-8.0) Eos % 2.9 % (0.0-5.0) Baso % 1.0 % (0.0-4.0) Neut # 5.5 10*3/uL (1.8-7.7) Lymph # 2.7 10*3/uL (1.2-4.8) [place] # 0.5 10*3/uL (0.0-0.8) Eos # 0.3 10*3/uL (0.0-0.5) Baso # 0.1 10*3/uL (0.0-0.2) 1 Suggest repeat testing in 2-4 weeks. 2 Reference range: <=19.9 Unit: AU/mL INTERPRETIVE INFORMATION: Rubella Ab, IgM 19.9 AU/mL or less........ Not Detected 20.0-24.9 AU/mL........... Indeterminate-Repeat testing in 10-14 days may be helpful. 25.0 AU/mL or greater..... Detected-IgM antibody to Rubella detected which may indicate a current or recent infection or immunization. Testing immediately post-exposure is of no value without a later convalescent specimen. While the presence of IgM antibodies suggest current or recent infection, low levels of IgM antibodies may occasionally persist for more than 12 months post-infection or immunization. The magnitude of the measured result is not indicative of the amount of antibody present. Performed by [facility], [address] [place] [id number] [email or web address], Chandler Kline MD, Lab. Director 3 No Rubella specific IgG antibodies detected. Patient is presumed NOT to have had a previous exposure to Rubella through infection or vaccination. 4 IgG antibody to VZV detected. This may indicate that the patient was exposed to VZV through infection or vaccination. 5 A MINIMUM LEVEL OF 10 mIU/mL IS SUGGESTED TO INSURE COMPLETE IMMUNITY. IF NEGATIVE OR LESS THAN 10 mIU/mL AT 1 TO 2 MONTHS FOLLOWING THE FINAL DOSE OF THE HEP B VACCINE SERIES, REVACCINATION IS RECOMMENDED FOR SELECT PATIENT POPULATIONS (SEE MMWR 2011:60(7)-JUN 01, 2011). 6 (NOTE) Reference Range: All Ages: <15 Negative > or=15 Positive Performed At: [facility] [address] [place] [id number] Dewey Palomino MD Ph:[phone] (NOTE) Performed At: [facility] [id number] Kiara Fong MD Ph:[phone] (NOTE) Reference Range: <1.0 Negative > or=1.0 Positive Performed At: [facility] [address] [place], [place] [id number] Dewey Palomino MD Ph:[phone] CONSULT 11/08/17 13:00 10 Specimen received as fragments. 11 Percentage (Represents the % composition) 12 No Nidus visualized 13 Please do not submit specimens on Q-Tips, in tape, on filters, or in liquids such as blood, urine or formalin. This may cause unnecessary biohazards, erroneous results and/or delay in the processing of the specimen. 14 Photograph will follow under separate cover. 15 Physician questions regarding Calculi Analysis contact [facility] at: [phone]. 16 Calculi report with photograph will follow via computer, mail or school photograph editor delivery. 17 This test was developed and its performance characteristics determined by [facility]. It has not been cleared or approved by the Food and Drug Administration. Performed at: [address] [id number] Gaming Cage Worker: Johnny Craig MD, Phone: [phone] 18 ABD PAIN, LOWER BACK PAIN, TROUBLE URINATING 19 Note: Persistent reduction for 3 months or more in an eGFR <60 mL/min/1.73 m2 defines CKD. Patients with eGFR values >/=60 mL/min/1.73 m2 may also have CKD if evidence of persistent proteinuria is present. The original MDRD equation for estimated GFR is not valid for patients less than 18 years of age. Additional information may be found at [email or web address]. 20 MIXED URETHRAL [place] 21 10,000 - 50,000 CFU/mL 22 URINE, CLEAN CATCH 23 ABD PAIN/ BACK PAIN 24 URINE, CLEAN CATCH 25 SEVERE ADB PAIN 26 URINE, CLEAN CATCH 27 Note: Persistent reduction for 3 months or more in an eGFR <60 mL/min/1.73 m2 defines CKD. Patients with eGFR values >/=60 mL/min/1.73 m2 may also have CKD if evidence of persistent proteinuria is present. The original MDRD equation for estimated GFR is not valid for patients less than 18 years of age. Additional information may be found at [email or web address]. 28 Values below the stated reference ranges of AST and ALT can be seen in normal populations. Clinical correlation is suggested. 29 SPECIMEN IS SLIGHTLY LIPEMIC 30 SERUM SPECIMEN Method: Quidel QuickVue One-Step Immunoassay 31 Information Clerk Brokerage: [id number] 32 EXCESSIVE BLEEDING;[facility] [id number] 33 Elevated levels of HbA1c suggest the need for more aggressive treatment of glycemia. The [place] [employer] recommends that a primary goal of therapy should be a HbA1c of <7% and that physicians should re-evaluate the treatment regimen in patients with HbA1c values consistently >8%. 34 THERAPEUTIC INR RANGE: 2.0 - 3.0 DVT, Pulmonary embolus, prophylaxis against venous thrombosis or systemic embolization in high risk patients. 2.5 - 3.5 Mechanical heart valves 35 8:00 SDC 10/08/17 [id number] 36 FIRST MORNING SPECIMENS GENERALLY CONTAIN THE HIGHEST CONCENTRATION OF HCG AND ARE RECOMMENDED FOR EARLY DETECTION OF . Method: Quidel QuickVue One-Step Immunoassay 37 Z86.718 D64.9 D68.69 38 Note: Persistent reduction for 3 months or more in an eGFR <60 mL/min/1.73 m2 defines CKD. Patients with eGFR values >/=60 mL/min/1.73 m2 may also have CKD if evidence of persistent proteinuria is present. The original MDRD equation for estimated GFR is not valid for patients less than 18 years of age. Additional information may be found at www.[email or web address]. 39 Values below the stated reference ranges of AST and ALT can be seen in normal populations. Clinical correlation is suggested. 40 Negative for toxigenic C. difficile by PCR 41 VAGINAL BLEEDING, SENT BY 42 Note: Persistent reduction for 3 months [...] normal populations. Clinical correlation is suggested. 44 Is patient on anticoagulants? Coumadin 45 THERAPEUTIC INR RANGE: 2.0 - 3.0 DVT, Pulmonary embolus, prophylaxis against venous thrombosis or systemic embolization in high risk patients. 2.5 - 3.5 Mechanical heart valves 46 MIXED URETHRAL [place] 47 CULTURE TO FOLLOW 48 URINE, CLEAN CATCH 49 URINE, CLEAN CATCH 50 D68.69 D64.9 51 Result: C677T/D0183M Two mutations (C677T and T4846V) identified Interpretation: This individual is heterzygous for both the MTHFR C677T and A8009Q variants (one copy of each). Compound heterozygosity for the C677T and P0925X variants is unlikely to be of clinical [...] be detected through systematic clinical laboratory analysis. 52 Methylenetetrahydrofolate reductase (MTHFR) is a sepulveda enzyme in the folate pathway and is responsible for the metabolism of homocysteine. There are two common variants in the MTHFR gene, c.655c>T (p.Ydp279Hhsf), referred to as C677T, and c.1286A>C (p.Sdd705Hnq), referred to as A1532N. Individuals homozygous for C677T (two copies of [...] conditions in the absence of hyperhomocysteinemia. The C7897S variant is not associated with elevated homocysteine levels unless a C677T variant is also present; however, the clinical significance of heterozygosity for both C677T and Y7802V is controversial. Population data suggest that these [...] health care providers to discuss results at [phone]. Methodology: DNA analysis of the MTHFR gene was performed by PCR amplification followed by restriction analysis. The diagnostic sensitivity is >99% for both. Molecular-based testing is highly accurate, but as in any laboratory test, rare diagnostic errors may occur. All test results must be combined with clinical information for the most accurate interpretation. This test was developed and its performance characteristics determined by [facility]. It has not been cleared or approved by the Food and Drug Administration. References: Keturah LD, Yoni Q. Am J Epidemiol 2000; 151(9):862-877. Sameer MM, Alison JA. Arch Pathol Lab Med 2007; 131(6):872-884. Frosst P et al. Albertina Nancy 1995; 10(1):111-113. Hickey SE et al. Nancy Med 2013; 15(2):153-156. [place] C et al. Obstet Gynecol 2011; 118(3):730-740. Tacos B et al. Eur J Epidemiol 2013; 28(8):621-647. Karma Akins, PhD, [facility] Brianna Tucker, PhD, [facility] Audrey Robin, PhD, FAC Sarah Hickman MAmandaS., PhD, FACMG Leanne Prater, PhD, FAC Sherri Way, PhD, FAC Ramiro Velasco, PhD, FAC Performed at: [facility] [address] [place], [place] [id number] Gaming [employer]age Worker: Leighann Lin MD, Phone: [phone] 53 NEGATIVE No mutation identified. Comment: A point mutation ([id number]) in the factor II (prothrombin) gene is [...] mutations. This assay detects only the prothrombin Y34446S mutation and does not measure genetic abnormalities elsewhere in the genome. Other thrombotic risk factors may be pursued through systematic clinical laboratory analysis. These factors include the R506Q ([place]) mutation in the Factor V gene, plasma homocysteine levels, as well as testing for deficiencies of antithrombin III, protein C and protein S. 54 Genetic Counselors are available for health care providers to discuss results at [phone] ([phone]). Methodology: DNA analysis of the Factor II gene was performed by PCR amplification followed by restriction analysis. The diagnostic sensitivity is >99% for both. All the tests must be combined with clinical information for the most accurate interpretation. Molecular-based testing is highly accurate, but as in any laboratory test, diagnostic errors may occur. This test was developed and its performance characteristics determined by [facility]. It has not been cleared or approved by the Food and Drug Administration. Poort SR, et al. Blood. 1996; 88:7229-1598. Devora DONAHUE. Circulation. 2004; 110:e15-e18. Huang I, et al. Arterioscler Thromb Vasc Biol. 1999; 19:700-703. Karma Akins, PhD, FACMG Brianna Tucker, PhD, FACMG Audrey Robin, PhD, FACMG Sarah Hickman MAmandaS., PhD, FACMG Leanne Prater, PhD, FACMG Sherri Way, PhD, FACMG Ramiro Velasco, PhD, FACMG Performed at: [facility] [address] [facility], [facility], [place] [id number] Gaming Cage Worker: Leighann Lin MD, Phone: [phone] 55 Protein S activity may be falsely increased (masking an abnormal, low result) in patients receiving direct Xa inhibitor (e.g., rivaroxaban, apixaban, edoxaban) or a direct thrombin inhibitor (e.g., dabigatran) anticoagulant treatment due to assay interference by these drugs. 56 This test was developed and its performance characteristics determined by [facility]. It has not been cleared or approved by the Food and Drug Administration. 57 This test was developed and its performance characteristics determined by [facility]. It has not been cleared or approved by the Food and Drug Administration. 58 Performed at: [address] [id number] Gaming [employer]age Worker: Johnny Craig MD, Phone: [phone] 59 Results are consistent with the presence of [...] in the presence of certain anticoagulant therapies. 60 Direct thrombin inhibitor anticoagulants such as rivaroxaban, apixaban and edoxaban will lead to spuriously elevated antithrombin activity levels possibly masking a deficiency. 61 This test was developed and its performance characteristics determined by [facility]. It has not been cleared or approved by the Food and Drug Administration. 62 Negative: <15 Indeterminate: 15 - 20 Low-Med Positive: >20 - 80 High Positive: >80 63 Negative: <13 Indeterminate: 13 - 20 Low-Med Positive: >20 - 80 High Positive: >80 64 Negative: <12 Indeterminate: 12 - 20 Low-Med Positive: >20 - 80 High Positive: >80 Performed at: [address] [id number] Gaming Cage Worker: Lexi Lopez MD, Phone: [phone] 65 Method: Sediplast Modified Westergren 66 Note: Persistent reduction for 3 months or more in an eGFR <60 mL/min/1.73 m2 defines CKD. Patients with eGFR values >/=60 mL/min/1.73 m2 may also have CKD if evidence of persistent proteinuria is present. The original MDRD equation for estimated GFR is not valid for patients less than 18 years of age. Additional information may be found at www.[email or web address]. 67 SENT BY RADIOLOGY, BLOOD CLOT IN L ARM 68 Method: Sediplast Modified Westergren 69 Note: Persistent reduction for 3 months or more in an eGFR <60 mL/min/1.73 m2 defines CKD. Patients with eGFR values >/=60 mL/min/1.73 m2 may also have CKD if evidence of persistent proteinuria is present. The original MDRD equation for estimated GFR is not valid for patients less than 18 years of age. Additional information may be found at www.[email or web address]. 70 0.0 - 0.045 ng/mL: Normal 0.046 - 0.5 ng/mL: Suggestive 0.6 - 1.5 ng/mL: Consistent 71 ACUTE APPENDICITIS 72 Note: Persistent reduction for 3 months or more in an eGFR <60 mL/min/1.73 m2 defines CKD. Patients with eGFR values >/=60 mL/min/1.73 m2 may also have CKD if evidence of persistent proteinuria is present. The original MDRD equation for estimated GFR is not valid for patients less than 18 years of age. Additional information may be found at www.[email or web address]. 73 Instrument flagged sample for slide review. Less than 10% Bands seen, no other immature WBC's seen. RBC morphology essentially normal. Platelet estimate=NORMAL 74 . A negative result for either C. trachomatis and/or N. gonorrhoeae does not preclued an infection because results are dependent on adequate specimen collection, absence of inhibitors, and sufficient DNA to be detected. 75 Method: BD Affirm VPIII DNA Probe Assay 76 Hard copy of report to be sent by mail Report may be viewed in Clinical Review, or in PCI under Medical Record Forms 77 THERAPEUTIC INR RANGE: 2.0 - 3.0 DVT, Pulmonary embolus, prophylaxis against venous thrombosis or systemic embolization in high risk patients. 2.5 - 3.5 Mechanical heart valves 78 Note: Persistent reduction for 3 months or more in an eGFR <60 mL/min/1.73 m2 defines CKD. Patients with eGFR values >/=60 mL/min/1.73 m2 may also have CKD if evidence of persistent proteinuria is present. The original MDRD equation for estimated GFR is not valid for patients less than 18 years of age. Additional information may be found at [email or web address]. 79 Values below the stated reference ranges of AST and ALT can be seen in normal populations. Clinical correlation is suggested. 80 SENT BY CC, RULE OUT APPENDICITIS 81 URINE, CLEAN CATCH 82 IONIZED CALCIUM NORMALIZED TO PH 7.40 AND 37 DEGREES C. 83 PER NCEP ATP III GUIDELINES: RESULTS LOWER THAN 40 MG/DL ARE SUGGESTIVE OF INCREASED RISK FOR CORONARY ARTERY DISEASE. RESULTS > OR=TO 60 MG/DL ARE CONSIDERED A NEGATIVE RISK FACTOR. 84 INTERPRETATION OF CHOL-HDL RATIO CHD RISK FEMALE MALE VERY HIGH >8.3 >14.3 HIGH 5.6- 8.3 6.7- 14.3 AVERAGE 3.7- 5.6 4.0- 6.7 BELOW AVERAGE 2.5- 3.7 2.7- 4.0 PROTECTED <2.5 <2.7 85 PER NCEP ATP III GUIDELINES: OPTIMAL < 100 NEAR OPTIMAL 100 - 129 BORDERLINE HIGH 130 - 159 HIGH 160 - 189 VERY HIGH > 189 86 HEMOGLOBIN A1c INTERPRETATION: 4.0-6.0% GOOD GLYCEMIC CONTROL 6.1-6.5% AT RISK FOR HYPERGLYCEMIA >6.5% DIABETIC/ POOR GLYCEMIC CONTROL REFERENCE: DIABETES CARE 32(7), 2008 IF A1c RESULT IS INCONSISTENT WITH CLINICAL ESTIMATES OF GLYCEMIC CONTROL, AN INTERFERING Hb VARIANT SHOULD BE CONSIDERED. 87 NORMAL KIDNEY FUNCTION OR MILD DISEASE - GFR >OR=60 CHRONIC KIDNEY DISEASE - GFR 15 - 59 RENAL FAILURE - GFR <15 Est. GFR calculation based on the MDRD study equation, which assumes a steady state for creatinine. Est. GFR should not be used for medication dosing. Procedures Date Code Description Status 06/25/2017 29838 Visual Screening Test Completed 06/25/2017 31641 EKG Completed 06/25/2017 80118 Audiometry, Bekesy, Screening Completed Encounters Type Date Location Provider Dx Diagnosis Office Visit 02/06/2018 Morenita Swanson N.P. 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 Encounter for other contraceptive management H53.30 Unspecified disorder of binocular vision K51.90 Ulcerative colitis, unspecified, without complications B35.4 Tinea corporis R10.30 Lower abdominal pain, unspecified M79.602 Pain in left arm M25.512 Pain in left shoulder R19.7 Diarrhea, unspecified Z90.49 Acquired absence of other specified parts of digestive tract D25.9 Leiomyoma of uterus, unspecified 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 Encounter for other contraceptive management H53.30 Unspecified disorder of binocular vision K51.90 Ulcerative colitis, unspecified, without complications B35.4 Tinea corporis R10.30 Lower abdominal pain, unspecified M79.602 Pain in left arm M25.512 Pain in left shoulder R19.7 Diarrhea, unspecified Z90.49 Acquired absence of other specified parts of digestive tract D25.9 Leiomyoma of uterus, unspecified 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 Encounter for other contraceptive management H53.30 Unspecified disorder of binocular vision K51.90 Ulcerative colitis, unspecified, without complications B35.4 Tinea corporis R10.30 Lower abdominal pain, unspecified M79.602 Pain in left arm M25.512 Pain in left shoulder R19.7 Diarrhea, unspecified Z90.49 Acquired absence of other specified parts of digestive tract D25.9 Leiomyoma of uterus, unspecified 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 Encounter for other contraceptive management H53.30 Unspecified disorder of binocular vision K51.90 Ulcerative colitis, unspecified, without complications B35.4 Tinea corporis R10.30 Lower abdominal pain, unspecified M79.602 Pain in left arm M25.512 Pain in left shoulder R19.7 Diarrhea, unspecified Z90.49 Acquired absence of other specified parts of digestive tract D25.9 Leiomyoma of uterus, unspecified 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 Encounter for other contraceptive management H53.30 Unspecified disorder of binocular vision K51.90 Ulcerative colitis, unspecified, without complications B35.4 Tinea corporis R10.30 Lower abdominal pain, unspecified M79.602 Pain in left arm M25.512 Pain in left shoulder R19.7 Diarrhea, unspecified Z90.49 Acquired absence of other specified parts of digestive tract D25.9 Leiomyoma of uterus, unspecified 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 Encounter for other contraceptive management H53.30 Unspecified disorder of binocular vision K51.90 Ulcerative colitis, unspecified, without complications B35.4 Tinea corporis R10.30 Lower abdominal pain, unspecified M79.602 Pain in left arm M25.512 Pain in left shoulder R19.7 Diarrhea, unspecified Z90.49 Acquired absence of other specified parts of digestive tract D25.9 Leiomyoma of uterus, unspecified 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 Encounter for other contraceptive management H53.30 Unspecified disorder of binocular vision K51.90 Ulcerative colitis, unspecified, without complications B35.4 Tinea corporis R10.30 Lower abdominal pain, unspecified M79.602 Pain in left arm M25.512 Pain in left shoulder R19.7 Diarrhea, unspecified Z90.49 Acquired absence of other specified parts of digestive tract D25.9 Leiomyoma of uterus, unspecified I82.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 N93.8 Other specified abnormal uterine and vaginal bleeding Office Visit 07/29/2017 10:30a Dom Manuel, E11.9 Type 2 diabetes mellitus M.DAmanda 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 Encounter for other contraceptive management H53.30 Unspecified disorder of binocular vision K51.90 Ulcerative colitis, unspecified, without complications R10.30 Lower abdominal pain, unspecified B35.4 Tinea corporis M79.602 Pain in left arm M25.512 Pain in left shoulder R19.7 Diarrhea, unspecified Z90.49 Acquired absence of other specified parts of digestive tract D25.9 Leiomyoma of uterus, unspecified I82.602 Acute embolism and thombos unsp veins of l up extrem Office Visit 06/25/2017 10:30a Will Nettles, E11.9 Type 2 diabetes PA mellitus without complications L20.9 Atopic dermatitis, unspecified J30.9 Allergic rhinitis, unspecified I10 Essential (primary) hypertension E78.2 Mixed hyperlipidemia Z00.01 Encounter for general adult medical exam w abnormal findings 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, unspecified Z30.8 Encounter for other contraceptive management E66.9 Obesity, unspecified D68.51 Activated protein C resistance Z68.34 Body mass index (BMI) 34.0-34.9, adult Plan of Treatment 03/07/2018 - Dom Singh M.D.E11.9 Type 2 diabetes mellitus without complicationsComments:DIET AND EXERCISELOW GLUCOSE CARB/DIETF/U HGBA1C AT 3 MO INTERVALSDIET MANAGEMENT AT THIS TIME HAS INSULIN PUMPI10 Essential (primary) hypertensionComments:CHECK BP TIW ( PRN)F/U LABDIET AND FLUID COUNSELING LOW SODIUM DIETWT LOSSF/U LABE78.2 Mixed hyperlipidemiaComments:DIET REVIEWED CONTINUE DIETWT LOSSF/U LAB FBWK51.90 Ulcerative colitis, unspecified, without complicationsComments:F/U WITH GI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, unspecifiedComments:S/P PARTIAL PARATHYROIDECTOMYWILL REFER TO ENDOD68.51 Activated protein C resistanceComments:OBSERVEF/U LABF/U HEMATOLOGY/ REHUMATOLOGY PRNREVIEW OF SAFETY NJHQLWLRL19.702 Chronic embolism and thrombosis of unspecified veins of leftComments:F/U WITH OWOOZDDAYVCORJRRSFN81.0 Calculus of kidneyComments:STABLE F/U WITH UROLOGY PRNL20.9 Atopic dermatitis, unspecifiedComments:SKIN CARE INSTRUCTIONS LOTION OR BABY OIL 2-3 APPLICATION PER DAYUSE MOISTURIZING SOAPAVOID PROLONGED WATER EXPOSUREAVOID USING HOT WATER IN GRFJWBX55.9 Allergic rhinitis, unspecifiedComments:INCREASE PO FLUID USE ANTIHISTAMINE PRN SECOND HAND SMOKING RWFJWAFGWD20.9 Obesity, zlzkhodkcrwM18.8 Encounter for other contraceptive managementComments:F/U WITH OB/GYNH53.30 Unspecified disorder of binocular visionComments:USE GLASSES/CONTACTSF/U WITH KNZWJMQDPLTDUW85.4 Tinea corporisComments:SKIN CARE JCNRJXBAMMLMH62.30 Lower abdominal pain, unspecifiedComments:TYLENOL OR MOTRIN PRNINCREASE PO FLUIDF/U GTZAQGGMO30.7 Diarrhea, unspecifiedComments:INCREASE PO FLUID DIET REVIEW LEXIE DIET PRNIMMODIUM PRNZ90.49 Acquired absence of other specified parts of digestive tractComments:SVRMXMDE10.9 Leiomyoma of uterus, unspecifiedComments:F/U WITH 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
[2018-03-19 10:47] VITALS: BP 112/74
--- NOTE | 2018-03-19 10:49 | UC ---
UC General HPI - HPI Summary HPI Summary: Patient presents with a long history of complaints including headache, fever, runny nose, cough, shortness of breath and pain inside the left ear canal for the past week. Yesterday she developed diarrhea as well. She is an insulin- dependent diabetic and notes that her blood sugars have gone over 200 with this current illness. The main reason for her visit today as she was experiencing an episode of feeling lightheaded like she might pass out this morning so she called her to bring her here. She denies any associated chest pain and notes this does not feel like when she had her congestive heart failure. 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 She also has history of ulcerative colitis and chronic rash. 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 Negative: Abdominal Pain, Chest Pain, Dysuria, Diaphoresis, Edema, Nausea, Vomiting - Allergy/Home Medications Allergies/Adverse Reactions: Allergies Allergy/AdvReac Type Severity Reaction Status Date / Time levofloxacin Allergy Hives Verified 03/19/18 10:29 cephalexin AdvReac Vomiting Verified 03/19/18 10:29 Sulfa (Sulfonamide AdvReac Vomiting Verified 03/19/18 10:29 Antibiotics) Home Medications: Home Medications Acetaminophen [Acetaminophen Extra Strength] 1,000 mg PO ONCE PRN 03/19/18 [ History Confirmed 03/19/18] diphenhydrAMINE HCl [Benadryl Allergy 25 MG CAP] 50 mg PO ONCE PRN 03/19/18 [ History Confirmed 03/19/18] PMH/Surg Hx/FS Hx/Imm Hx - Additional Past Medical History Additional PMH: chronic rash, ulcers colitis, 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 TONSILECTOMY. PARATHYROIDECTOMY--2004, hysterctomy 2017, [facility] 08/2017 - Family History Known Family History: Positive: Diabetes, Blood Disorder - several members with factor V Leiden Negative: Cardiac Disease, Hypertension - Social History Lives: With Family Alcohol Use: None Substance Use Type: None Smoking Status (MU): Never Smoked Tobacco - Immunization History Vaccination Up to Date: Yes Review of Systems Constitutional: Fever, Chills Skin: Rash - chronic ENT: Ear Ache - L Respiratory: Shortness Of Breath, Cough Gastrointestinal: Diarrhea Neurological: Headache All Other Systems Reviewed And Are Negative: Yes Physical Exam Triage Information Reviewed: Yes Appearance: Well-Appearing Vital Signs: Initial Vital Signs Temp 98 F 03/19/18 10:31 Pulse 81 03/19/18 10:31 Resp 16 03/19/18 10:31 BP 112/74 03/19/18 10:31 Pulse Ox 100 03/19/18 10:31 Vital Signs Reviewed: Yes Eyes: Positive: Conjunctiva Clear ENT: Positive: Pharynx normal, TMs normal, Other - Floor L canal red, dry, no exudate. Mastoids non tender. No auricular adenopathy.. Negative: Nasal congestion Neck: Positive: Supple, Nontender, No Lymphadenopathy, Other: - No JVD Respiratory: Positive: Lungs clear, Normal breath sounds Cardiovascular: Positive: RRR, No Murmur, Pulses Normal Abdomen Description: Positive: Nontender, No Organomegaly, Soft Bowel Sounds: Positive: Present Musculoskeletal Exam: Normal Musculoskeletal: Positive: ROM Intact, No Edema Neurological: Positive: Alert Psychological: Positive: Age Appropriate Behavior Skin Exam: Normal, Other - Excoriated spots trunk. No erythema or exudates( chronic rash). Course/Dx - Course Course Of Treatment: Patient is nontoxic and her physical exam is reassuring; however, her history of being ill for the past week and near syncope this a.m. coupled with her chronic disease is very concerning thus ER transfer advised. pt agrees to transfer. [facility] ER CALLED. REPORT GIVEN TO DR NUÑEZ. ADVISED OF SICK X 1 WEEK, THIS AM NEAR SYNCOPE AND HX IDDM, CHF, CARDIOMYOPATHY, DVT. BS IN 200'S WITH THIS ILLNESS. PT REFUSED EMS TRANSFER DESPITE RISK OF MVA, DELAY OF CARE, WORSENING, DISABILITY AND . WILL DRIVE. BOTH PT AND SPOUSE A&O AND ABLE TO MAKE DECISIONS THUS MUST RESPECK EMS REFUSAL. - Differential Dx - Multi-Symptom Provider Diagnoses: Near syncope, general malaise, Hx IDDM, HX CHF secondary to cardiomyopathy, Hx coagulopathy with DVT. Discharge - Sign-Out/Discharge Documenting (check all that apply): Patient Departure All imaging exams completed and their final reports reviewed: No - Discharge Plan Condition: Stable Disposition: TRANS HIGHER LVL OF CARE FAC Referrals: Dom Singh MD [Primary Care Provider] - Additional Instructions: LEAVE HERE AND GO DIRECTLY TO THE [facility] ER DISCUSSED - Billing Disposition and Condition Condition: STABLE Disposition: Trans Higher Lvl of Care Fac
== END 2018-03-19 10:54 | disposition short-term general hospital (02) ==
LOC: UCCORT 10:07
DX: R55 Syncope and collapse (principal); R53.81 Other malaise; E11.9 Type 2 diabetes mellitus without complications; I50.9 Heart failure, unspecified; Z88.1 Allergy status to other antibiotic agents; Z86.718 Personal history of other venous thrombosis and embolism; D68.9 Coagulation defect, unspecified
CPT/HCPCS: 99212; G0463

== ENCOUNTER 2018-09-12 12:38 | Emergency (ER) | payer OTHER ==
[2018-09-12 13:32] VITALS: BP 111/71
--- NOTE | 2018-09-12 15:11 | UC ---
Skin Complaint HPI - HPI Summary HPI Summary: 42-year-old female presents stating she awoke this morning around 4 AM with pruritic hives to her bilateral arms and bilateral upper legs that have progressively worsened throughout the day. States she has taken diphenhydramine 50 mg 1 dose earlier today with no relief in symptoms. Denies swelling of the lips, tongue, or throat, difficulty breathing, recent travel, changes in soaps, detergents, lotions, cosmetics, diet, medications, or known contact with environmental irritants. - History of Current Complaint Chief Complaint: UCSkin Time Seen by Provider: 09/12/18 14:49 Stated Complaint: SKIN CONCERN Hx Obtained From: Patient Hx Last Menstrual Period: hysterctomy 10/08/17 Pain Intensity: 3 - Allergy/Home Medications Allergies/Adverse Reactions: Allergies Allergy/AdvReac Type Severity Reaction Status Date / Time levofloxacin Allergy Hives Verified 09/12/18 13:26 cephalexin AdvReac Vomiting Verified 09/12/18 13:26 Sulfa (Sulfonamide AdvReac Vomiting Verified 09/12/18 13:26 Antibiotics) PMH/Surg Hx/FS Hx/Imm Hx Previously Healthy: Yes Endocrine History: Diabetes Cardiovascular History: Hypertension - Surgical History Surgical History: Yes Surgery Procedure, Year, and Place: , gallbladder removal, stents in her kidney for stones. TONSILECTOMY. PARATHYROIDECTOMY--2004, hysterctomy 2017, [facility] 08/2017 - Family History Known Family History: Positive: Diabetes, Blood Disorder - several members with factor V Leiden Negative: Cardiac Disease, Hypertension - Social History Occupation: Student Lives: With Family Alcohol Use: None Substance Use Type: None Smoking Status (MU): Never Smoked Tobacco - Immunization History Vaccination Up to Date: Yes Review of Systems All Other Systems Reviewed And Are Negative: Yes Constitutional: Negative: Fever, Chills Skin: Positive: Rash - See HPI Eyes: Negative: Drainage, Eye Redness ENT: Negative: Sore Throat, Ear Ache, Nasal Discharge, Sinus Congestion, Sinus Pain/Tenderness Respiratory: Negative: Shortness Of Breath, Cough Cardiovascular: Negative: Palpitations, Chest Pain Gastrointestinal: Positive: Negative Genitourinary: Positive: Negative Musculoskeletal: Positive: Negative Neurological: Positive: Negative Is Patient Immunocompromised?: No Physical Exam - Summary Physical Exam Summary: GENERAL APPEARANCE: Well developed, well nourished, alert and cooperative, and appears to be in no acute distress. EYES: Conjunctiva clear. No drainage. Vision is grossly intact. EARS: External auditory canals and tympanic membranes clear, hearing grossly intact. NOSE: No nasal discharge. THROAT: No swelling of lips, tongue, or throat. No tonsilar inflammation, swelling, exudate, or lesions. Uvula midline. Oral cavity normal. Teeth and gingiva in good general condition. Airway patent. NECK: Neck supple, non-tender without lymphadenopathy. CARDIAC: Normal S1 and S2. No S3, S4 or murmurs. Rhythm is regular. There is no peripheral edema, cyanosis or pallor. Extremities are warm and well perfused. Capillary refill is less than 2 seconds. Peripheral pulses intact. LUNGS: Clear to auscultation without rales, rhonchi, wheezing or diminished breath sounds. ABDOMEN: Positive bowel sounds. Soft, nondistended, nontender. No guarding or rebound. No masses or hepatosplenomegally. MUSKULOSKELETAL: ROM intact to all extremities. No joint erythema or tenderness. Normal muscular development. Normal gait. SKIN: Urticarial rash noted to bilateral arms and upper legs. No other rash or lesions noted. Triage Information Reviewed: Yes Vital Signs: Initial Vital Signs Temp 97.5 F 09/12/18 13:28 Pulse 80 09/12/18 13:28 Resp 17 09/12/18 13:28 BP 111/71 09/12/18 13:28 Pulse Ox 100 09/12/18 13:28 Vital Signs Reviewed: Yes Course/Dx - Course Course Of Treatment: 42-year-old female presents stating she awoke this morning around 4 AM with pruritic hives to her bilateral arms and bilateral upper legs that have progressively worsened throughout the day. States she has taken diphenhydramine 50 mg 1 dose earlier today with no relief in symptoms. Denies swelling of the lips, tongue, or throat, difficulty breathing, recent travel, changes in soaps, detergents, lotions, cosmetics, diet, medications, or known contact with environmental irritants. Afebrile. Vital signs stable. Exam reveals an alert adult female in no acute distress with an urticarial rash noted to her bilateral arms and upper legs and otherwise unremarkable exam. Patient does have a history of diabetes and is on an insulin pump however she states that her pump ran out earlier this morning and she has been without her insulin for most of the day. Discussed with her treatment options including a short course of steroids however with her diabetic history and recommending that we start with treating with a combination of a nondrowsy [id number] antihistamine and H2 waylon next 7 days. She is to return here or follow up with her primary care provider in 3 days if symptoms do not improve. Anticipatory guidance and warning symptoms were reviewed with the patient. Verbalizes understanding and agrees with plan of care. - Differential Diagnoses - Skin Complaint Differential Diagnoses: Allergic Reaction, Contact Dermatitis, Local Allergic Reaction, Urticaria - Diagnoses Provider Diagnosis: Urticaria Discharge - Sign-Out/Discharge Documenting (check all that apply): Patient Departure All imaging exams completed and their final reports reviewed: No Studies - Discharge Plan Condition: Stable Disposition: HOME Prescriptions: raNITIdine HCl [Ranitidine HCl] 150 mg PO BID #14 cap Patient Education Materials: Urticaria (ED) Referrals: Dom Singh MD [Primary Care Provider] - 3 Days (If no improvement.) Additional Instructions: Take an over the counter non-drowsy antihistamine such as Zytec, Claritin, or Taya 1 tablet twice a day for 7 days. You may use a generic brand of any of these medications. If symptoms are not improving tomorrow increase dose to 1 tablet 3 times a day. Take ranitidine (Zantac) 150 mg 1 cap every 12 hours for 7 days. Return here or follow up with your primary care provider in 3 days if no improvement in symptoms. Seek immediate medical attention in the emergency room if you develop swelling of the lips, tongue, or throat, have difficulty breathing, or any worsening of symptoms. - Billing Disposition and Condition Condition: STABLE Disposition: Home
== END 2018-09-12 15:39 | disposition home or self-care (01) ==
LOC: UCCORT 12:38
DX: L50.9 Urticaria, unspecified (principal); I10 Essential (primary) hypertension; E11.9 Type 2 diabetes mellitus without complications; Z88.1 Allergy status to other antibiotic agents; Z88.2 Allergy status to sulfonamides; Z79.4 Long term (current) use of insulin
CPT/HCPCS: 99212; G0463

== ENCOUNTER 2018-09-28 14:51 | Emergency (ER) | payer OTHER ==
--- OUTSIDE RECORDS SUMMARY | 2018-09-28 14:58 | XMS REPORT | Continuity of Care Document ---
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 Active Onset: 02/10/2018 Kidney stone Katiana Carranza M.D. Active Family History Date Family Member(s) Observation Comments Father CAD Father Diabetes Father Prostate Cancer Social History Type Date Description Comments Sex Unknown Marital Status Diet Patient is on a diabetic diet Diet Patient is on a low sodium diet Diet Patient is on a low carb diet Occupation [employer] ADL's/IADL's Independent with all ADL's Tobacco Use Start: Unknown Never Smoked Cigarettes Smoking Status Reviewed: 05/26/18 Never Smoked Cigarettes ETOH Use Denies alcohol use Tobacco Use Start: Unknown Patient denies history of smoking Recreational Drug Use Denies Drug Use Allergies, Adverse Reactions, Alerts Date Description Reaction Status Severity Comments 07/30/2017 Levaquin Active 07/30/2017 Keflex Active Medications Medication Date Status Form Strength Qnty SIG Indications Ordering Provider Potassium Active Tablets ER 15Meq 180tab 1 tab by N20.0 Dillon, Citrate ER 8 (1620 mg) s mouth Mahmoud, twice a M.D. day Aspirin Active Tablets DR 81mg 30tabs 1 by mouth Rudy, Adult Low 8 every day Hu, Dose DO Lisinopril Active Tablets 5mg 1 by mouth Unknown 0 every day Metoprolol Active Tablets ER 25mg 1 by mouth Unknown Succinate ER 0 24HR every day Sulfamethoxa Hx Tablets 800-160mg 1tabs Once by Dillon, zole/Trimeth 8 - mouth for Mahmoud, oprim DS in office M.D. 8 procedure. Given in office Bactrim DS Hx Tablets 800-160mg 6tabs 1 tab by Dillon, 8 - mouth Mahmoud, twice a M.D. 8 day Vesicare Hx Tablets 10mg 14tabs Once A Day Dillon, 8 - Mahmoud, M.D. 8 Colace Hx Capsules 100mg 30caps 1 tab by Dillon, 8 - mouth Mahmoud, twice a M.D. 8 day Hydrocodone- Hx Tablets 10-325mg 14tabs i tab Dillon, Acetaminophe 8 - every 6 Mahmoud, n hours as M.D. 8 needed for pain. Lovenox Hx Solution 40mg/0.4ML 7injec 1 D68.69 Rudy 8 - table injection Hu, daily DO 8 times a week after surgery Lovenox Hx Solution 40mg/0.4ML 7shots 1 D68.69 Rudy, 8 - injection Hu, daily DO 8 after surgery for 7 days Xarelto Hx TBPK 15&20mg 51unit use as Karpenko, Starter Pack 8 - s directed Hu, DO 8 Metformin Hx Tablets 1000mg 1 by mouth Unknown HCL 0 - twice a day 8 Novolog Hx Solution 100Unit/ML As Unknown 0 - directed 8 Hydrocodone- Hx Tablets 10-325mg TK 1 To 2 Unknown Acetaminophe 0 - TS PO Q 4 n Unknown H as Needed. MDD 6 Megestrol Hx Tablets 40mg 2 by mouth Unknown Acetate 0 - twice Unknown daily Immunizations Description No Information Available Vital Signs Date Vital Result Comment 05/26/2018 9:03am BP Systolic 138 mmHg BP Diastolic 81 mmHg Body Temperature 97.0 F Heart Rate 72 /min Respiratory Rate 16 /min Weight 208.12 lb O2 % BldC Oximetry 97 % Pain Level 0 05/13/2018 9:07am BP Systolic 118 mmHg BP Diastolic 80 mmHg Body Temperature 98.3 F Heart Rate 84 /min Respiratory Rate 14 /min Height 64 inches 5'4" Weight 464.38 lb BMI (Body Mass Index) 79.7 kg/m2 BSA (Body Surface Area) 2.80 m2 [place] body weight in kilograms 54 kg O2 % BldC Oximetry 97 % Pain Level 0 05/12/2018 9:06am BP Systolic 96 mmHg BP Diastolic 67 mmHg Heart Rate 86 /min Respiratory Rate 20 /min O2 % BldC Oximetry 97 % Pain Level 0 02/10/2018 3:06pm BP Systolic 116 mmHg BP Diastolic 78 mmHg Body Temperature 98.6 F Heart Rate 96 /min Respiratory Rate 16 /min Height 64 inches 5'4" Weight 203.00 lb BMI (Body Mass Index) 34.8 kg/m2 BSA (Body Surface Area) 1.97 m2 [place] body weight in kilograms 54 kg O2 % BldC Oximetry 97 % Pain Level 0 01/21/2018 1:33pm BP Systolic 98 mmHg BP Diastolic 62 mmHg Body Temperature 98.1 F Heart Rate 85 /min Weight 207.31 lb O2 % BldC Oximetry 97 % Pain Level 0 11/20/2017 8:12am BP Systolic 113 mmHg BP Diastolic 76 mmHg Body Temperature 97.7 F Heart Rate 62 /min Respiratory Rate 16 /min Height 64 inches 5'4" Weight 198.00 lb BMI (Body Mass Index) 34.0 kg/m2 BSA (Body Surface Area) 1.95 m2 [place] body weight in kilograms 54 kg O2 % BldC Oximetry 100 % Pain Level 4 Stent discomfort 10/07/2017 1:41pm BP Systolic 113 mmHg BP Diastolic 80 mmHg Body Temperature 98.1 F Heart Rate 88 /min Respiratory Rate 16 /min Weight 202.00 lb O2 % BldC Oximetry 98 % Pain Level 0 09/24/2017 9:49am BP Systolic 119 mmHg BP Diastolic 80 mmHg Body Temperature 99.6 F Heart Rate 83 /min Respiratory Rate 16 /min Weight 204.00 lb O2 % BldC Oximetry 100 % Pain Level 0 09/18/2017 3:01pm BP Systolic Sitting Left Arm 104 mmHg BP Diastolic Sitting Left Arm 78 mmHg Heart Rate 83 /min Respiratory Rate 16 /min Height 64 inches 5'4" Weight 200.00 lb BMI (Body Mass Index) 34.3 kg/m2 BSA (Body Surface Area) 1.96 m2 [place] body weight in kilograms 54 kg 09/05/2017 3:22pm BP Systolic 110 mmHg BP Diastolic 68 mmHg Body Temperature 97.9 F Heart Rate 89 /min Weight 206.00 lb O2 % BldC Oximetry 99 % 08/08/2017 2:35pm BP Systolic 114 mmHg BP Diastolic 77 mmHg Body Temperature 98.2 F Heart Rate 71 /min Weight 202.25 lb O2 % BldC Oximetry 97 % 08/05/2017 10:47am BP Systolic 113 mmHg BP Diastolic 85 mmHg Body Temperature 97.6 F Heart Rate 94 /min Height 66 inches 5'6" Weight 208.00 lb BMI (Body Mass Index) 33.6 kg/m2 BSA (Body Surface Area) 2.03 m2 [place] body weight in kilograms 59 kg 07/30/2017 11:32am BP Systolic 104 mmHg BP Diastolic 68 mmHg Body Temperature 96.6 F Heart Rate 62 /min Height 66 inches 5'6" Weight 207.00 lb BMI (Body Mass Index) 33.4 kg/m2 BSA (Body Surface Area) 2.03 m2 [place] body weight in kilograms 59 kg O2 % BldC Oximetry 98 % Results Test Date Facility Test Result H/L Range Note Slide Review 09/16/2018 [facility] Slide Review . 1, 2 [address] [place] [address] [phone] CBC W/Automated 09/16/2018 [facility] White Blood 11.1 K/uL High 3.1-10.[address] [place] [address] [phone] Red Blood Count 3.94 M/uL N 3.90-5.40 Hemoglobin 11.5 gm/dL Low 11.6-15.8 Hematocrit 36.2 % N 36.0-46.1 Mean Cell Volume 91.9 fl N 80.9-99.0 Mean Corpuscular HGB 29.2 pg N 25.9-32.7 Mean Corpuscular HGB Conc 31.8 g/dL N 30.8-34.3 Platelet Count 282 K/uL N 155-360 Red Cell Distri Width SD 48.1 fl High 36-47 Red Cell Distri Width %CV 14.7 % High 11.7-14.4 Mean Platelet Volume 11.1 fL N 8.9-12.4 Neut% 81.1 % High 40.4-72.8 Lymph % 13.8 % Low 20.0-42.0 [place] % 5.0 % N 4.3-13.2 Eo% 0.0 % N 0.0-6.6 Bas% 0.1 % N 0.0-1.1 Neut# 8.97 K/uL High 1.8-7.0 Lymph # 1.52 K/uL N 1.0-4.0 [place] # 0.55 K/uL N 0.3-0.9 Eos # 0.00 K/uL N 0.0-0.5 Baso # 0.01 K/uL N 0.0-0.1 Laboratory test 09/16/2018 [facility] Magnesium 2.2 mg/dL N 1.8-2.[address] [place] [address] [phone] Comprehensive 09/16/2018 [facility] Glucose 118 mg/dL High 74-106 Metabolic Panel [address] [place] [address] [phone] BUN 14 mg/dL N 7-18 Creatinine 1.0 mg/dL N 0.6-1.3 Glom Filtration Rate, Estimate >60 mL/min >60 If >60 mL/min >60 3 BUN/Creat 14.0 ratio Sodium 141 mmol/L N 136-145 Potassium 4.0 mmol/L N 3.5-5.1 Chloride 108 mmol/L High 98-107 Carbon Dioxide 28 mmol/L N 21-32 Anion Gap 5 mEq/L Low 8-16 Calcium 8.5 mg/dL N 8.5-10.1 Total Protein 6.8 g/dL N 6.4-8.2 Albumin 2.8 g/dL Low 3.4-5.0 Globulin 4.0 g/dL N 1.9-4.3 Alb/Glob 0.7 ratio Bilirubin,Total 0.1 mg/dL Low 0.2-1.0 Sgot/Ast 6 U/L Low 15-37 4 SGPT/Alt 18 U/L N 12-78 Alkaline Phosphatase 61 U/L N 45-117 Laboratory test 09/15/2018 [facility] Troponin-I < 0.015 [address] ng/mL [place], [place] [id number] [phone] CBC 09/14/2018 [facility] White Blood 13.7 K/uL High 3.1-[address] Count 0.7 [place], [place] [id number] [phone] Red Blood Count 3.93 M/uL N 3.90-5.40 Hemoglobin 11.6 gm/dL N 11.6-15.8 Hematocrit 35.8 % Low 36.0-46.1 Mean Cell Volume 91.1 fl N 80.9-99.0 Mean Corpuscular HGB 29.5 pg N 25.9-32.7 Mean Corpuscular HGB Conc 32.4 g/dL N 30.8-34.3 Platelet Count 256 K/uL N 155-360 Red Cell Distri Width %CV 14.2 % N 11.7-14.4 Mean Platelet Volume 10.7 fL N 8.9-12.4 Glycohemoglobin 09/14/2018 [facility] Glycohemoglobin 7.2 % High 4.2-6.[address] (A1c) [place], [place] [id number] [phone] eAG 160 mg/dL Basic Metabolic Panel 09/14/2018 [facility] Glucose 236 mg/dL High 74-[address] [place] [address] [phone] BUN 7 mg/dL N 7-18 Creatinine 0.9 mg/dL N 0.6-1.3 Glom Filtration Rate, Estimate >60 mL/min >60 If >60 mL/min >60 7 BUN/Creat 7.7 ratio Sodium 144 mmol/L N 136-145 Potassium 3.8 mmol/L N 3.5-5.1 Chloride 115 mmol/L High 98-107 Carbon Dioxide 23 mmol/L N 21-32 Anion Gap 6 mEq/L Low 8-16 Calcium 7.9 mg/dL Low 8.5-10.1 Laboratory test 09/14/2018 [facility] Complement, Total > 60 U/mL >41 [address] ([address]50) [place] [address] [phone] CBC W/Automated 05/26/2018 [facility] White Blood Count 8.8 K/uL N 3.1-10.7 [address] [place] [address] [phone] Red Blood Count 4.59 M/uL N 3.90-5.40 Hemoglobin 13.7 gm/dL N 11.6-15.8 Hematocrit 42.1 % N 36.0-46.1 Mean Cell Volume 91.7 fl N 80.9-99.0 Mean Corpuscular HGB 29.8 pg N 25.9-32.7 Mean Corpuscular HGB Conc 32.5 g/dL N 30.8-34.3 Platelet Count 322 K/uL N 155-360 Red Cell Distri Width SD 44.8 fl N 3-47 Red Cell Distri Width %CV 13.6 % N 11.7-14.4 Mean Platelet Volume 11.4 fL N 8.9-12.4 Neut% 62.5 % N 40.4-72.8 Lymph % 28.9 % N 20.0-42.0 [place] % 6.6 % N 4.3-13.2 Eo% 1.7 % N 0.0-6.6 Bas% 0.3 % N 0.0-1.1 Neut# 5.46 K/uL N 1.8-7.0 Lymph # 2.53 K/uL N 1.0-4.0 [place] # 0.58 K/uL N 0.3-0.9 Eos # 0.15 K/uL N 0.0-0.5 Baso # 0.03 K/uL N 0.0-0.1 Iron-Tibc-%Sat 05/26/2018 [facility] Serum Iron 68 g/dL N 50-[address] [place] [address] [phone] Total Iron Binding Capacity 304 g/dL N 250-450 Transferrin %Saturation 22 % N 12-57 Homocyst(E)Ine, 05/26/2018 [facility] Homocyst(e)ine, 11.0 0.0-15.0 10 P/S [address] P/S umol/[place] [address] [phone] Urine Dipstick 05/12/2018 [facility] Ua Color yellow Yellow Ua Clarity clear Clear Ua Leuko neg Negative Ua Nitrite neg Negative Ua Urobilinogen 0.2mg/dL 0.2 - 1.0 E.U./dL Ua Protein 15 mg/dL High Negative Ua PH 6.0 Low 6.5-7.5 Ua Blood neg Negative Ua Specific [place] 1.030 1.010-1.030 Ua Ketones neg Negative Ua Bilirubin neg Negative Ua Glucose neg Negative CBS W/Automated 01/21/2018 [facility] White Blood 9.9 K/uL N 3.1-10.7 [address] [place] [address] [phone] Red Blood Count 4.67 M/uL N 3.90-5.40 Hemoglobin 14.1 gm/dL N 11.6-15.8 Hematocrit 42.6 % N 36.0-46.1 Mean Cell Volume 91.2 fl N 80.9-99.0 Mean Corpuscular HGB 30.2 pg N 25.9-32.7 Mean Corpuscular HGB Conc 33.1 g/dL N 30.8-34.3 Platelet Count 322 K/uL N 155-360 Red Cell Distri Width SD 47.9 fl High 3-47 Red Cell Distri Width %CV 15.0 % High 11.7-14.4 Mean Platelet Volume 11.2 fL N 8.9-12.4 Neut% 56.3 % N 40.4-72.8 Lymph % 31.9 % N 20.0-42.0 [place] % 6.1 % N 4.3-13.2 Eo% 5.3 % N 0.0-6.6 Bas% 0.4 % N 0.0-1.1 Neut# 5.58 K/uL N 1.8-7.0 Lymph # 3.15 K/uL N 1.0-4.0 [place] # 0.60 K/uL N 0.3-0.9 Eos # 0.52 K/uL High 0.0-0.5 Baso # 0.04 K/uL N 0.0-0.1 Iron-Tibc-%Sat 01/21/2018 [facility] Serum Iron 96 g/dL N 50-170 [address] [place] [address] [phone] Total Iron Binding Capacity 321 g/dL N 250-450 Transferrin %Saturation 30 % N 12-57 Lupus Anticoagulant Reflex 01/21/2018 [facility] PTT-LA 35.0 sec 0.0-51.9 [address] [place] [address] [phone] DRVVT 43.7 sec 0.0-47.0 Note: Comment: . 12 Homocyst(E)Ine, 01/21/2018 [facility] Homocyst(e)ine, 18.3 High 0.0-15.0 13 P/S 134 [facility] P/S umol/[place] [address] [phone] Calculi,Urinary,W 11/13/2017 [facility] Color Funez . 14 ith Photo [address] [place] [address] [phone] Size (SEE NOTE) 15 Weight 138.8 mg . Composition (SEE NOTE) 16 Ca Oxalate,Dihydrate 55 % . Ca Oxalate,Monohydrate 40 % . Calcium Phosphate 05 % . Nidus No Nidus visuali <SEE NOTE> . 17 Comment Note: . 18 . (SEE NOTE) 19 . (SEE NOTE) 20 . (SEE NOTE) 21 Disclaimer (SEE NOTE) 22 Lupus Anticoagulant 09/24/2017 [facility] PTT-LA 30.8 sec 0.0-51.9 23 Reflex [address] [place] [address] [phone] DRVVT 32.4 sec 0.0-47.0 Note: Comment: . 24 Anticardiolipin AB 09/24/2017 [facility] Anticardiolipin < 9 0-14 25 Iga/Igg/Igm [address] Igg GPLU/[place] [address] [phone] Anticardiolipin Igm, Quant < 9 MPLU/mL 0-12 26 Anticardiolipin Iga < 9 APLU/mL 0-11 27 Xray 09/20/2017 [facility] Left upper <pending> [address] [place] [address] Doppler [phone] Vitamin B12 And 09/02/2017 [facility] Vitamin B12 253 pg/mL N 193-986 28 Folate [address] [place] [address] [phone] Folic Acid 7.2 ng/mL N 3.1-17.5 Laboratory test finding 09/02/2017 [facility] Ferritin 96 ng/mL N 8-252 [address] [place] [address] [phone] Iron-Tibc-%Sat 09/02/2017 [facility] Serum Iron 51 g/dL N 50-170 [address] [place] [address] [phone] Total Iron Binding Capacity 347 g/dL N 250-450 Transferrin %Saturation 15 % N 12-57 Comprehensive Metabolic 09/02/2017 [facility] Glucose 133 mg/dL High 74-106 Panel [address] [place], [place] [id number] [phone] BUN 10 mg/dL N 7-18 Creatinine 1.0 mg/dL N 0.6-1.3 Glom Filtration Rate, Estimate >60 mL/min >60 If >60 mL/min >60 29 BUN/Creat 10.0 ratio Sodium 139 mmol/L N 136-145 Potassium 4.1 mmol/L N 3.5-5.1 Chloride 109 mmol/L High 98-107 Carbon Dioxide 24 mmol/L N 21-32 Anion Gap 6 mEq/L Low 8-16 Calcium 9.1 mg/dL N 8.5-10.1 Total Protein 8.0 g/dL N 6.4-8.2 Albumin 3.7 g/dL N 3.4-5.0 Globulin 4.3 g/dL N 1.9-4.3 Alb/Glob 0.9 ratio Bilirubin,Total 0.2 mg/dL N 0.2-1.0 Sgot/Ast 11 U/L Low 15-37 30 SGPT/Alt 23 U/L N 12-78 Alkaline Phosphatase 82 U/L N 45-117 CBS W/Automated 09/02/2017 [facility] White Blood 10.1 K/uL N 3.1-10.[address] Count [place], [place] [id number] [phone] Red Blood Count 4.56 M/uL N 3.90-5.40 Hemoglobin 13.3 gm/dL N 11.6-15.8 Hematocrit 41.0 % N 36.0-46.1 Mean Cell Volume 89.9 fl N 80.9-99.0 Mean Corpuscular HGB 29.2 pg N 25.9-32.7 Mean Corpuscular HGB Conc 32.4 g/dL N 30.8-34.3 Platelet Count 334 K/uL N 155-360 Red Cell Distri Width SD 47.4 fl High 3-47 Red Cell Distri Width %CV 14.9 % High 11.7-14.4 Mean Platelet Volume 11.9 fL N 8.9-12.4 Neut% 52.6 % N 40.4-72.8 Lymph % 37.1 % N 20.0-42.0 [place] % 7.1 % N 4.3-13.2 Eo% 2.8 % N 0.0-6.6 Bas% 0.4 % N 0.0-1.1 Neut# 5.29 K/uL N 1.8-7.0 Lymph # 3.73 K/uL N 1.0-4.0 [place] # 0.71 K/uL N 0.3-0.9 Eos # 0.28 K/uL N 0.0-0.5 Baso # 0.04 K/uL N 0.0-0.1 Laboratory test 08/28/2017 [facility] C. Difficile Negative for 31, [address] Toxin B By [place] <[place] [address] PCR NOTE> [phone] Comprehensive 07/30/2017 [facility] Glucose 97 mg/dL N 74-1 33 Metabolic Panel [address] [place], [place] [address] [phone] BUN 6 mg/dL Low 7-18 Creatinine 1.0 mg/dL N 0.6-1.3 Glom Filtration Rate, Estimate >60 mL/min >60 If >60 mL/min >60 34 BUN/Creat 6.0 ratio Sodium 143 mmol/L N 136-145 Potassium 3.6 mmol/L N 3.5-5.1 Chloride 110 mmol/L High 98-107 Carbon Dioxide 25 mmol/L N 21-32 Anion Gap 8 mEq/L N 8-16 Calcium 8.7 mg/dL N 8.5-10.1 Total Protein 7.7 g/dL N 6.4-8.2 Albumin 3.4 g/dL N 3.4-5.0 Globulin 4.3 g/dL N 1.9-4.3 Alb/Glob 0.8 ratio Bilirubin,Total 0.2 mg/dL N 0.2-1.0 Sgot/Ast 28 U/L N 15-37 SGPT/Alt 29 U/L N 12-78 Alkaline Phosphatase 73 U/L N 45-117 Laboratory test finding 07/30/2017 [facility] Amylase 43 U/L N 25-[address] [place], [place] [address] [phone] Lipase 143 U/L N 56-289 Anticardiolipin AB 07/30/2017 [facility] Anticardiolipin < 9 0-14 35 Iga/Igg/Igm [address] Igg GPLU/mL [place], [place] [address] [phone] Anticardiolipin Igm, Quant 10 MPLU/mL 0-12 36 Anticardiolipin Iga < 9 APLU/mL 0-11 37 Antithrombin III 07/30/2017 [facility] Antithrombin III 122 % 75-135 [address] Activity [place], [place] [address] [phone] Antithrombin III Antigen 105 % 72-124 39 Laboratory test finding 07/30/2017 [facility] Ferritin 23 N 8-[address] ng/mL [place], [place] [address] [phone] Methylenetetrahydrofolate 07/30/2017 [facility] MTHFR,Dna (SEE [address] Analysis NOTE) [place] [address] [phone] References (SEE NOTE) 41 Factor II Dna 07/30/2017 [facility] Factor II, Dna (SEE NOTE) [address] [place] [address] [phone] Additional Information (SEE NOTE) 43 Protein C 07/30/2017 [facility] Protein 145 % 73-180 44 Deficiency Profile [address] C,[place] [address] [phone] Protein C,Antigen 103 % 60-150 Protein S 07/30/2017 [facility] Protein S,Functional 89 % 63-140 45 Deficiency Profile [address] [place] [address] [phone] Protein S,Total 93 % 60-150 46 Protein S,Free 84 % 57-157 47 Lupus Anticoagulant Reflex 07/30/2017 [facility] PTT-LA 45.9 sec 0.0-51.9 [address] [place] [address] [phone] DRVVT 70.5 sec High 0.0-47.0 Note: Comment: . 48 Iron-Tibc-%Sat 07/30/2017 [facility] Serum Iron 38 g/dL Low 50-170 [address] [place], [place] [address] [phone] Total Iron Binding Capacity 281 g/dL N 250-450 Transferrin %Saturation 14 % N 12-57 CBS W/Automated Diff 07/30/2017 [facility] White Blood 7.3 K/uL N 3.1-10.[address] Count [place], [place] [address] [phone] Red Blood Count 4.46 M/uL N 3.90-5.40 Hemoglobin 13.2 gm/dL N 11.6-15.8 Hematocrit 40.2 % N 36.0-46.1 Mean Cell Volume 90.1 fl N 80.9-99.0 Mean Corpuscular HGB 29.6 pg N 25.9-32.7 Mean Corpuscular HGB Conc 32.8 g/dL N 30.8-34.3 Platelet Count 291 K/uL N 155-360 Red Cell Distri Width SD 46.6 fl N 3-47 Red Cell Distri Width %CV 14.5 % High 11.7-14.4 Mean Platelet Volume 11.2 fL N 8.9-12.4 Neut% 55.3 % N 40.4-72.8 Lymph % 31.8 % N 20.0-42.0 [place] % 7.7 % N 4.3-13.2 Eo% 4.7 % N 0.0-6.6 Bas% 0.5 % N 0.0-1.1 Neut# 4.03 K/uL N 1.8-7.0 Lymph # 2.32 K/uL N 1.0-4.0 [place] # 0.56 K/uL N 0.3-0.9 Eos # 0.34 K/uL N 0.0-0.5 Baso # 0.04 K/uL N 0.0-0.1 Vitamin B12 And 07/30/2017 [facility] Vitamin B12 320 pg/mL N 193-[address] [place] [address] [phone] Folic Acid 5.9 ng/mL N 3.1-17.5 Laboratory test 07/30/2017 [facility] DRVVT Mix 54.3 sec High 0.0-47.[address] [place] [address] [phone] DRVVT Confirm 1.3 ratio High 0.8-1.2 Laboratory test 07/30/2017 [facility] Sedimentation 11 mm/hr N 0-20 [address] [place] [address] [phone] Comprehensive 07/25/2017 [facility] Glucose 113 High 74-106 50 Metabolic Panel [address] mg/[place] [address] [phone] BUN 6 mg/dL Low 7-18 Creatinine 0.8 mg/dL N 0.6-1.3 Glom Filtration Rate, Estimate >60 mL/min >60 If >60 mL/min >60 51 BUN/Creat 7.5 ratio Sodium 143 mmol/L N 136-145 Potassium 3.9 mmol/L N 3.5-5.1 Chloride 112 mmol/L High 98-107 Carbon Dioxide 26 mmol/L N 21-32 Anion Gap 5 mEq/L Low 8-16 Calcium 7.4 mg/dL Low 8.5-10.1 Total Protein 5.7 g/dL Low 6.4-8.2 Albumin 2.6 g/dL Low 3.4-5.0 Globulin 3.1 g/dL N 1.9-4.3 Alb/Glob 0.8 ratio Bilirubin,Total 0.4 mg/dL N 0.2-1.0 Sgot/Ast 25 U/L N 15-37 SGPT/Alt 22 U/L N 12-78 Alkaline Phosphatase 60 U/L N 45-117 CBS W/Automated Diff 07/25/2017 [facility] White Blood 7.9 K/uL N 3.1-10.[address] [place] [address] [phone] Red Blood Count 3.79 M/uL Low 3.90-5.40 Hemoglobin 11.1 gm/dL Low 11.6-15.8 Hematocrit 34.1 % Low 36.0-46.1 Mean Cell Volume 90.0 fl N 80.9-99.0 Mean Corpuscular HGB 29.3 pg N 25.9-32.7 Mean Corpuscular HGB Conc 32.6 g/dL N 30.8-34.3 Platelet Count 225 K/uL N 155-360 Red Cell Distri Width SD 43.3 fl N 3-47 Red Cell Distri Width %CV 13.6 % N 11.7-14.4 Mean Platelet Volume 10.4 fL N 8.9-12.4 Neut% 67.8 % N 40.4-72.8 Lymph % 22.7 % N 20.0-42.0 [place] % 8.9 % N 4.3-13.2 Eo% 0.3 % N 0.0-6.6 Bas% 0.3 % N 0.0-1.1 Neut# 5.35 K/uL N 1.8-7.0 Lymph # 1.79 K/uL N 1.0-4.0 [place] # 0.70 K/uL N 0.3-0.9 Eos # 0.02 K/uL N 0.0-0.5 Baso # 0.02 K/uL N 0.0-0.1 Laboratory test 07/25/2017 [facility] Slide Review . [address] [place], [place] [address] [phone] Hemoglobin/Hematocr 07/24/2017 [facility] Hemoglobin 11.8 gm/dL N 11.6-15. it [address] [place] [address] [phone] Hematocrit 36.1 % N 36.0-46.1 Comprehensive Metabolic 07/24/2017 [facility] Glucose 117 mg/dL High 74-106 Panel [address] [address] [phone] BUN 6 mg/dL Low 7-18 Creatinine 0.9 mg/dL N 0.6-1.3 Glom Filtration Rate, Estimate >60 mL/min >60 If >60 mL/min >60 53 BUN/Creat 6.6 ratio Sodium 144 mmol/L N 136-145 Potassium 3.9 mmol/L N 3.5-5.1 Chloride 112 mmol/L High 98-107 Carbon Dioxide 29 mmol/L N 21-32 Anion Gap 3 mEq/L Low 8-16 Calcium 7.6 mg/dL Low 8.5-10.1 Total Protein 6.0 g/dL Low 6.4-8.2 Albumin 2.7 g/dL Low 3.4-5.0 Globulin 3.3 g/dL N 1.9-4.3 Alb/Glob 0.8 ratio Bilirubin,Total 0.4 mg/dL N 0.2-1.0 Sgot/Ast 13 U/L Low 15-37 54 SGPT/Alt 21 U/L N 12-78 Alkaline Phosphatase 63 U/L N 45-117 Laboratory test 07/24/2017 [facility] Magnesium 1.6 mg/dL Low 1.8-2.4 finding [address] [place], [place] [id number] [phone] C-Reactive Protein,Quant 4.8 mg/L High <3.0 Chlamydia/GC Cheryle 07/24/2017 [facility] Chlamydia Negative Negative [address] Trachomatis, [place] [address] [phone] Neisseria Gonorrhoeae, Cheryle Negative Negative Please note: (SEE NOTE) 55 Affirm 07/24/2017 [facility] Trichomonas Negative [Negative] Vaginitis [address] [place] [address] [phone] Gardnerella vaginalis Negative [Negative] Muna species Negative [Negative] 56 HPV High Risk 07/24/2017 [facility] HPV High Risk Results on file [address] [place] [address] [phone] Protime 07/24/2017 [facility] Protime 13.4 seconds N 12.0-[address] [place] [address] [phone] Inr 1.0 N 0.9-1.1 58 CBS W/Automated Diff 07/24/2017 [facility] White Blood 7.0 K/uL N 3.1-10.[address] [place] [address] [phone] Red Blood Count 3.95 M/uL N 3.90-5.40 Hemoglobin 11.6 gm/dL N 11.6-15.8 Hematocrit 35.8 % Low 36.0-46.1 Mean Cell Volume 90.6 fl N 80.9-99.0 Mean Corpuscular HGB 29.4 pg N 25.9-32.7 Mean Corpuscular HGB Conc 32.4 g/dL N 30.8-34.3 Platelet Count 240 K/uL N 155-360 Red Cell Distri Width SD 44.0 fl N 3-47 Red Cell Distri Width %CV 13.6 % N 11.7-14.4 Mean Platelet Volume 11.1 fL N 8.9-12.4 Neut% 61.8 % N 40.4-72.8 Lymph % 27.9 % N 20.0-42.0 Culberson % 7.8 % N 4.3-13.2 Eo% 2.4 % N 0.0-6.6 Bas% 0.1 % N 0.0-1.1 Neut# 4.33 K/uL N 1.8-7.0 Lymph # 1.96 K/uL N 1.0-4.0 Culberson # 0.55 K/uL N 0.3-0.9 Eos # 0.17 K/uL N 0.0-0.5 Baso # 0.01 K/uL N 0.0-0.1 1 ANAPHYLAXIS 2 Instrument flagged sample for slide review. Less than 10% Bands seen, no other immature WBC's seen. RBC morphology essentially normal. Platelet gcydistv=431 CHECKED,PLT EST. AGREES WITH INSTRUMENT VALUE. 3 Note: Persistent reduction for 3 months or more in an eGFR <60 mL/min/1.73 m2 defines CKD. Patients with eGFR values >/=60 mL/min/1.73 m2 may also have CKD if evidence of persistent proteinuria is present. The original MDRD equation for estimated GFR is not valid for patients less than 18 years of age. Additional information may be found at www.kdoqi.org. 4 Values below the stated reference ranges of AST and ALT can be seen in normal populations. Clinical correlation is suggested. 5 0.0 - 0.045 ng/mL: Normal 0.046 - 0.5 ng/mL: Suggestive 0.6 - 1.5 ng/mL: Consistent 6 Elevated levels of HbA1c suggest the need for more aggressive treatment of glycemia. The [place] [employer] recommends that a primary goal of therapy should be a HbA1c of <7% and that physicians should re-evaluate the treatment regimen in patients with HbA1c values consistently >8%. 7 Note: Persistent reduction for 3 months or more in an eGFR <60 mL/min/1.73 m2 defines CKD. Patients with eGFR values >/=60 mL/min/1.73 m2 may also have CKD if evidence of persistent proteinuria is present. The original MDRD equation for estimated GFR is not valid for patients less than 18 years of age. Additional information may be found at www.kdoqi.org. 8 Performed at: [address] [id number] Clinical Trial Educator: Lexi Lopez MD, Phone: [phone] 9 D68.69 10 Performed at: [address] [id number] Clinical Trial Educator: Lexi Lopez MD, Phone: [phone] I82.622 12 No lupus anticoagulant was detected. Performed at: [address] [id number] Clinical Trial Educator: Johnny Craig MD, Phone: [phone] 13 Performed at: [address] [id number] Clinical Trial Educator: Lexi Lopez MD, Phone: [phone] CONSULT 11/08/17 13:00 15 Specimen received as fragments. 16 Percentage (Represents the % composition) 17 No Nidus visualized 18 Please do not submit specimens on Q-Tips, in tape, on filters, or in liquids such as blood, urine or formalin. This may cause unnecessary biohazards, erroneous results and/or delay in the processing of the specimen. 19 Photograph will follow under separate cover. 20 Physician questions regarding Calculi Analysis contact [facility] at: [phone]. 21 Calculi report with photograph will follow via computer, mail or lacquer shader delivery. 22 This test was developed and its performance characteristics determined by [facility]. It has not been cleared or approved by the Food and Drug Administration. Performed at: [address] [id number] Clinical Trial Educator: Johnny Craig MD, Phone: [phone] 23 D68.58 24 No lupus anticoagulant was detected. Performed at: [address] [id number] Clinical Trial Educator: Johnny Craig MD, Phone: [phone] 25 Negative: <15 Indeterminate: 15 - 20 Low-Med Positive: >20 - 80 High Positive: >80 26 Negative: <13 Indeterminate: 13 - 20 Low-Med Positive: >20 - 80 High Positive: >80 27 Negative: <12 Indeterminate: 12 - 20 Low-Med Positive: >20 - 80 High Positive: >80 Performed at: [address] [id number] Clinical Trial Educator: Lexi Lopez MD, Phone: [phone] 28 Z86.718 D64.9 D68.69 29 Note: Persistent reduction for 3 months or more in an eGFR <60 mL/min/1.73 m2 defines CKD. Patients with eGFR values >/=60 mL/min/1.73 m2 may also have CKD if evidence of persistent proteinuria is present. The original MDRD equation for estimated GFR is not valid for patients less than 18 years of age. Additional information may be found at www.kdoqi.org. 30 Values below the stated reference ranges of AST and ALT can be seen in normal populations. Clinical correlation is suggested. 31 D64.9 R19.7 32 Negative for toxigenic C. difficile by PCR 33 D68.69 D64.9 34 Note: Persistent reduction for 3 months or more in an eGFR <60 mL/min/1.73 m2 defines CKD. Patients with eGFR values >/=60 mL/min/1.73 m2 may also have CKD if evidence of persistent proteinuria is present. The original MDRD equation for estimated GFR is not valid for patients less than 18 years of age. Additional information may be found at www.kdoqi.org. 35 Negative: <15 Indeterminate: 15 - 20 Low-Med Positive: >20 - 80 High Positive: >80 36 Negative: <13 Indeterminate: 13 - 20 Low-Med Positive: >20 - 80 High Positive: >80 37 Negative: <12 Indeterminate: 12 - 20 Low-Med Positive: >20 - 80 High Positive: >80 Performed at: [address] [id number] Clinical Trial Educator: Lexi Lopez MD, Phone: [phone] 38 Direct thrombin inhibitor anticoagulants such as rivaroxaban, apixaban and edoxaban will lead to spuriously elevated antithrombin activity levels possibly masking a deficiency. 39 This test was developed and its performance characteristics determined by [facility]. It has not been cleared or approved by the Food and Drug Administration. 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 Compound heterozygosity for the C677T and I6697B variants is unlikely to be of clinical [...] be detected through systematic clinical laboratory analysis. 41 Methylenetetrahydrofolate reductase (MTHFR) is a sepulveda enzyme in the folate pathway and is responsible for the metabolism of homocysteine. There are two common variants in the MTHFR gene, c.655c>T (p.Lpj173Lsaf), referred to as C677T, and c.1286A>C (p.Nva573Tcq), referred to as N6594E. Individuals homozygous for C677T (two copies of [...] conditions in the absence of hyperhomocysteinemia. The U0336P variant is not associated with elevated homocysteine levels unless a C677T variant is also present; however, the clinical significance of heterozygosity for both C677T and W8352E is controversial. Population data suggest that these [...] health care providers to discuss results at [phone] [place]. Methodology: DNA analysis of the MTHFR gene was performed by PCR amplification followed by restriction analysis. The diagnostic sensitivity is >99% for both. Molecular-based testing is highly accurate, but as in any laboratory test, rare diagnostic errors may occur. All test results must be combined with clinical information for the most accurate interpretation. This test was developed and its performance characteristics determined by [facility]. It has not been cleared or approved by the Food and Drug Administration. References: Lamberto LD, Vallejo Q. Am J Epidemiol 2000; 151(9):862-877. Sameer MM, Alison JA. Arch Pathol Lab Med 2007; 131(6):872-884. Goransst P et al. Albertina Nancy 1995; 10(1):111-113. Onelia SE et al. Nancy Med 2013; 15(2):153-156. Xiao C et al. Obstet Gynecol 2011; 118(3):730-740. Tacos Haas et al. Eur J Epidemiol 2013; 28(8):621-647. Karma Akins, PhD, FACMG Brianna Tucker, PhD, FACMG Audrey Robin, PhD, FACMG Sarah Hickman M.S., PhD, FACMG Leanne Prater, PhD, FACMG Sherri Way, PhD, FAC Ramiro Velasco, PhD, FACMG Performed at: [facility] [address], [place] [id number] Clinical Trial Educator: Leighann Lin MD, Phone: [phone] 42 NEGATIVE No mutation identified. Comment: A point mutation ([id number]) in the factor II (prothrombin) gene is [...] mutations. This assay detects only the prothrombin H28689S mutation and does not measure genetic abnormalities elsewhere in the genome. Other thrombotic risk factors may be pursued through systematic clinical laboratory analysis. These factors include the R506Q (Leiden) mutation in the Factor V gene, plasma homocysteine levels, as well as testing for deficiencies of antithrombin III, protein C and protein S. 43 Genetic Counselors are available for health care providers to discuss results at [phone] Methodology: DNA analysis of the Factor II gene was performed by PCR amplification followed by restriction analysis. The diagnostic sensitivity is >99% for both. All the tests must be combined with clinical information for the most accurate interpretation. Molecular-based testing is highly accurate, but as in any laboratory test, diagnostic errors may occur. This test was developed and its performance characteristics determined by [facility]. It has not been cleared or approved by the Food and Drug Administration. Poort SR, et al. Blood. 1996; 88:2853-7604. Devora DONAHUE. Circulation. 2004; 110:e15-e18. Huang I, et al. Arterioscler Thromb Vasc Biol. 1999; 19:700-703. Karma Akins, PhD, FAC Brianna Tucker, PhD, [facility] Audrey Robin, PhD, FAC Sarah Hickman MAmandaS., PhD, FAC Leanne Prater, PhD, FAC Sherri Way, PhD, FAC Ramiro Velasco, PhD, FAC Performed at: [place] [address] [place], [place] [id number] Clinical Trial Educator: Leighann Lin MD, Phone: [phone] 44 Performed at: [address] [id number] Clinical Trial Educator: Johnny Craig MD, Phone: [phone] 45 Protein S activity may be falsely increased (masking an abnormal, low result) in patients receiving direct Xa inhibitor (e.g., rivaroxaban, apixaban, edoxaban) or a direct thrombin inhibitor (e.g., dabigatran) anticoagulant treatment due to assay interference by these drugs. 46 This test was developed and its performance characteristics determined by [facility]. It has not been cleared or approved by the Food and Drug Administration. 47 This test was developed and its performance characteristics determined [facility]. It has not been cleared or approved by the Food and Drug Administration. 48 Results are consistent with the presence of [...] in the presence of certain anticoagulant therapies. 49 Method: Sediplast Modified Westergren 50 ACUTE APPENDICITIS 51 Note: Persistent reduction for 3 months or more in an eGFR <60 mL/min/1.73 m2 defines CKD. Patients with eGFR values >/=60 mL/min/1.73 m2 may also have CKD if evidence of persistent proteinuria is present. The original MDRD equation for estimated GFR is not valid for patients less than 18 years of age. Additional information may be found at www.kdoqi.org. 52 Instrument flagged sample for slide review. Less than 10% Bands seen, no other immature WBC's seen. RBC morphology essentially normal. Platelet estimate=NORMAL 53 Note: Persistent reduction for 3 months or more in an eGFR <60 mL/min/1.73 m2 defines CKD. Patients with eGFR values >/=60 mL/min/1.73 m2 may also have CKD if evidence of persistent proteinuria is present. The original MDRD equation for estimated GFR is not valid for patients less than 18 years of age. Additional information may be found at www.kdoqi.org. 54 Values below the stated reference ranges of AST and ALT can be seen in normal populations. Clinical correlation is suggested. 55 . A negative result for either C. trachomatis and/or N. gonorrhoeae does not preclued an infection because results are dependent on adequate specimen collection, absence of inhibitors, and sufficient DNA to be detected. 56 Method: BD Affirm VPIII DNA Probe Assay 57 Hard copy of report to be sent by mail Report may be viewed in Clinical Review, or in PCI under Medical Record Forms 58 THERAPEUTIC INR RANGE: 2.0 - 3.0 DVT, Pulmonary embolus, prophylaxis against venous thrombosis or systemic embolization in high risk patients. 2.5 - 3.5 Mechanical heart valves Procedures Date Code Description Status 09/16/2018 15874 Echocardiogram Complete Completed 09/15/2018 20515 EKG Interpretation And Report Only Completed 11/20/2017 74966 Cystourethroscopy W/Removal FB/Calc/Stent Urethra/Bladder Completed Simple 11/13/2017 50874 Urography Retrograde W/Wo KUB Completed 11/13/2017 97206 Cystourethroscopy W/ Lithotripsy Incl. Ins. Indwelling Completed Stent 11/13/2017 15205 Cystourethroscopy W/Lithotripsy Completed 2017 00487 Urography Retrograde W/Wo KUB Completed 2017 60497 Cystourethroscopy W/ Insert Indwelling Ureteral Stent Completed 09/18/2017 94214 EKG-Tracing And Report Completed 07/24/2017 44750 Laparoscopy, surgical, appendectomy Completed Encounters Type Date Location Provider Dx Diagnosis Office Visit 05/26/2018 Oncology Office Rudy D68.69 Other thrombophilia 9:30a DO Hu D68.69 Other thrombophilia D64.9 Anemia, unspecified D64.9 Anemia, unspecified Office Visit 05/13/2018 9:00a Urology Katiana Carranza M.D. N20.0 Calculus of kidney Office Visit 02/10/2018 3:15p Urology Katiana Carranza M.D. N20.0 Calculus of kidney E21.0 Primary hyperparathyroidism Office Visit 01/21/2018 1:30p Oncology Office Rudy D64.9 Anemia, Hu, unspecified D68.69 Other thrombophilia Z86.718 Personal history of other venous thrombosis and embolism Office Visit 10/07/2017 1:45p Oncology Rudy D68.69 Other thrombophilia Office DO Hu Z86.718 Personal history of other venous thrombosis and embolism Office Visit 09/24/2017 9:30a Oncology Rudy D68.69 Other thrombophilia Office DO Hu D64.9 Anemia, unspecified Z86.718 Personal history of other venous thrombosis and embolism Office Visit 09/18/2017 Cardiology Cornell Swanson, Z01.810 Encounter for 3:00p Office preprocedural cardiovascular examination I42.8 Other cardiomyopathies Office Visit 09/05/2017 3:30p Oncology Office Rudy, I82.622 Acute embolism DO Hu and thrombosis of deep veins of l up extrem D68.69 Other thrombophilia N93.9 Abnormal uterine and vaginal bleeding, unspecified Office Visit 08/08/2017 2:30p Oncology Office Rudy Z86.718 Personal history DO Hu of other venous thrombosis and embolism D64.9 Anemia, unspecified D68.69 Other thrombophilia N93.9 Abnormal uterine and vaginal bleeding, unspecified Office Visit 07/30/2017 11:30a Oncology Rudy, D68.69 Other thrombophilia Office DO Hu I82.622 Acute embolism and thrombosis of deep veins of l up extrem D64.9 Anemia, unspecified Plan of Treatment Future Appointment(s):11/19/2018 10:30 am - Cornell Swanson MD at Cardiology [id number]/10/2018 1:30 pm - Hu Grant DO at Oncology Office
[2018-09-28 15:15] VITALS: BP 135/90
--- NOTE | 2018-09-28 15:25 | UC ---
Respiratory Complaint HPI - HPI Summary HPI Summary: 42-year-old female presents with 6 day history of nasal congestion, runny nose, and a productive cough for 6 days. Patient was recently hospitalized for progressively worsening hives for which she was seen at this facility by myself on 09/12/2018 and she was started on prednisone 40 mg daily for which she is to continue until she follows up with the marriage performer next week. Denies fever, chills, ear pain, sore throat, chest pain, shortness of breath, abdominal pain, nausea, vomiting, or diarrhea. - History of Current Complaint Chief Complaint: UCRespiratory Stated Complaint: CONGESTION, COUGH Time Seen by Provider: 09/28/18 15:13 Hx Obtained From: Patient Hx Last Menstrual Period: hysterctomy 10/08/17 Pain Intensity: 0 - Allergies/Home Medications Allergies/Adverse Reactions: Allergies Allergy/AdvReac Type Severity Reaction Status Date / Time levofloxacin Allergy Hives Verified 09/28/18 15:15 cephalexin AdvReac Vomiting Verified 09/28/18 15:15 Sulfa (Sulfonamide AdvReac Vomiting Verified 09/28/18 15:15 Antibiotics) Home Medications: Home Medications Cetirizine* [ZyrTEC 10 MG TAB*] 10 mg PO DAILY 09/28/18 [History Confirmed 09/28] Pantoprazole TAB * [Protonix TAB*] 40 mg PO DAILY 09/28/18 [History Confirmed ] diphenhydrAMINE HCl [Benadryl] 25 mg PO DAILY 09/28/18 [History Confirmed ] predniSONE TAB* [Deltasone 20 MG TAB*] 40 mg PO DAILY 09/28/18 [History Confirmed 09/28/18] PMH/Surg Hx/FS Hx/Imm Hx Endocrine History: Diabetes Cardiovascular History: Hypertension - Surgical History Surgical History: Yes Surgery Procedure, Year, and Place: , gallbladder removal, stents in her kidney for stones. TONSILECTOMY. PARATHYROIDECTOMY--2004, hysterctomy 2017, [place] 08/2017 - Family History Known Family History: Positive: Diabetes, Blood Disorder - several members with factor V Leiden Negative: Cardiac Disease, Hypertension - Social History Occupation: Employed Full-time Lives: With Family Alcohol Use: None Substance Use Type: None Smoking Status (MU): Never Smoked Tobacco - Immunization History Vaccination Up to Date: Yes Review of Systems All Other Systems Reviewed And Are Negative: Yes Constitutional: Negative: Fever, Chills Skin: Negative: Rash Eyes: Negative: Drainage, Eye Redness ENT: Positive: Nasal Discharge, Sinus Congestion. Negative: Sore Throat, Ear Ache, Sinus Pain/Tenderness Respiratory: Positive: Cough. Negative: Shortness Of Breath Cardiovascular: Negative: Palpitations, Chest Pain Gastrointestinal: Negative: Abdominal Pain, Vomiting, Diarrhea, Nausea Genitourinary: Positive: Negative Musculoskeletal: Positive: Negative Neurological: Positive: Negative Is Patient Immunocompromised?: No Physical Exam - Summary Physical Exam Summary: GENERAL APPEARANCE: Well developed, well nourished, alert and cooperative, and appears to be in no acute distress. EYES: Conjunctiva clear. No drainage. Vision is grossly intact. EARS: External auditory canals and tympanic membranes clear, hearing grossly intact. NOSE: No nasal discharge. THROAT: Pharyngeal cobblestoning. Surgically absent tonsils. Uvula midline. Oral cavity normal. Teeth and gingiva in good general condition. NECK: Neck supple, non-tender without lymphadenopathy. CARDIAC: Normal S1 and S2. No S3, S4 or murmurs. Rhythm is regular. There is no peripheral edema, cyanosis or pallor. Extremities are warm and well perfused. Capillary refill is less than 2 seconds. Peripheral pulses intact. LUNGS: Clear to auscultation without rales, rhonchi, wheezing or diminished breath sounds. Non-productive cough. ABDOMEN: Positive bowel sounds. Soft, nondistended, nontender. No guarding or rebound. No masses or hepatosplenomegally. MUSKULOSKELETAL: ROM intact to all extremities. No joint erythema or tenderness. Normal muscular development. Normal gait. SKIN: Skin normal color, texture and turgor with no lesions or eruptions. Triage Information Reviewed: Yes Vital Signs: Initial Vital Signs Temp 99.7 F 09/28/18 15:10 Pulse 108 09/28/18 15:10 Resp 18 09/28/18 15:10 BP 135/90 09/28/18 15:10 Pulse Ox 99 09/28/18 15:10 Vital Signs Reviewed: Yes Respiratory Course/Dx - Course Course Of Treatment: 42-year-old female presents with 6 day history of nasal congestion, runny nose, and a productive cough for 6 days. Patient was recently hospitalized for progressively worsening hives for which she was seen at this facility by myself on 09/12/2018 and she was started on prednisone 40 mg daily for which she is to continue until she follows up with the marriage performer next week. Denies fever, chills, ear pain, sore throat, chest pain, shortness of breath, abdominal pain, nausea, vomiting, or diarrhea. Afebrile. Tachycardic otherwise vital signs stable. Exam remarkable for mild to moderate nasal congestion, pharyngeal cobblestoning, nonproductive cough. Considering her history of diabetes and her presently being on prednisone according to treat her with a course of azithromycin for an upper respiratory infection with cough. Recommending symptomatic treatment including Tessalon Perles one capsule every 8 hours as needed for cough. She is to follow-up with primary care provider in 5 days for recheck of her symptoms. Anticipatory guidance and warning symptoms were reviewed with patient. Verbalizes understanding and agrees with plan of care. - Differential Dx/Diagnosis Differential Diagnosis/HQI/PQRI: Bronchitis, Lower Resp Infection, Sinusitis, Other - URI Provider Diagnosis: URI with cough and congestion Discharge - Sign-Out/Discharge Documenting (check all that apply): Patient Departure All imaging exams completed and their final reports reviewed: No Studies - Discharge Plan Condition: Stable Disposition: HOME Prescriptions: Azithromyxin SULTANA (NF) [Z-Sultana (Zithromax) 250 mg tabs #6] 2 tab PO .TODAY, THEN 1 DAILY #6 tab Benzonatate CAP* [Tessalon 100 MG CAP*] 100 mg PO TID PRN #30 cap PRN Reason: Cough Patient Education Materials: Upper Respiratory Infection (ED) Referrals: Dom Singh MD [Primary Care Provider] - 5 Days Additional Instructions: Your history and exam are consistent with an upper respiratory infection. Considering the duration of your symptoms and with you being on steroids we will treat you with an antibiotic for the infection. Start azithromycin 2 tabs today then 1 tab a day for the next 4 days. Drink plenty of fluids to avoid dehydration especially if you are running any fever. Use a saline rinse kit such as Neti Pot or NeilMed at least twice a day to help thin secretions and promote drainage of the sinuses. Take over the counter acetaminophen (Tylenol) or ibuprofen (Advil, Motrin) according to directions as needed for pain or fever. Use Tessalon Perles 1 cap every 8 hours as needed for cough. Follow up with your primary care provider in 5 days for recheck of symptoms. Seek immediate medical attention in the emergency room if you have fever greater than 100.5 F despite taking acetaminophen or ibuprofen, have chest pain , difficulty breathing, are unable to swallow, or have any worsening of symptoms. - Billing Disposition and Condition Condition: STABLE Disposition: Home - Attestation Statements Provider Attestation: Per institutional requirements, I have reviewed the chart, however, I was not consulted specifically or made aware of this patient by the midlevel provider. I did not personally evaluate, interact with , or disposition this patient.
== END 2018-09-28 15:32 | disposition home or self-care (01) ==
LOC: UCCORT 14:51
DX: J06.9 Acute upper respiratory infection, unspecified (principal); R05 Cough; R09.81 Nasal congestion; E11.9 Type 2 diabetes mellitus without complications; I10 Essential (primary) hypertension; Z88.1 Allergy status to other antibiotic agents; Z88.2 Allergy status to sulfonamides
CPT/HCPCS: 99212; G0463

== ENCOUNTER 2019-04-26 12:45 | Emergency (ER) | payer OTHER ==
[2019-04-26 13:27] VITALS: BP 99/69
--- NOTE | 2019-04-26 13:48 | UC ---
Respiratory Complaint HPI - HPI Summary HPI Summary: 43 year old Type 2 IDDM female presents with complaint of productive cough with yellow phlegm that started 1 week ago. She had a fever initially 6 days ago, but none since. No associated n/v/d. +nasal congestion. - History of Current Complaint Chief Complaint: UCRespiratory Stated Complaint: CONGESTION,COUGH Time Seen by Provider: 04/26/19 13:30 Hx Obtained From: Patient Hx Last Menstrual Period: hysterctomy 10/08/17 Onset/Duration: Gradual Onset, Lasting Weeks - One week Pain Intensity: 0 Associated Signs And Symptoms: Positive: URI, Nasal Congestion - Allergies/Home Medications Allergies/Adverse Reactions: Allergies Allergy/AdvReac Type Severity Reaction Status Date / Time levofloxacin Allergy Hives Verified 04/26/19 13:20 cephalexin AdvReac Vomiting Verified 04/26/19 13:20 Sulfa (Sulfonamide AdvReac Vomiting Verified 04/26/19 13:20 Antibiotics) Home Medications: Home Medications Aspirin [Aspir-Low] 81 mg PO DAILY 04/26/19 [History Confirmed 04/26/19] Metoprolol Tartrate 25 mg PO DAILY 04/26/19 [History Confirmed 04/26/19] hydrOXYzine HCL TAB* [Atarax 25 MG TAB*] 25 mg PO TID PRN 04/26/19 [History Confirmed 04/26/19] raNITIdine HCl [Acid Control] 150 mg PO BID 04/26/19 [History Confirmed 04/26/19 ] PMH/Surg Hx/FS Hx/Imm Hx Previously Healthy: Yes Endocrine History: Diabetes Cardiovascular History: Other - palpitations - Surgical History Surgical History: Yes Surgery Procedure, Year, and Place: , gallbladder removal, stents in her kidney for stones. TONSILECTOMY. PARATHYROIDECTOMY--2004, hysterctomy 2017, [facility] 08/2017 - Family History Known Family History: Positive: Diabetes, Blood Disorder - several members with factor V Leiden Negative: Cardiac Disease, Hypertension - Social History Alcohol Use: None Substance Use Type: None Smoking Status (MU): Never Smoked Tobacco - Immunization History Vaccination Up to Date: Yes Review of Systems All Other Systems Reviewed And Are Negative: Yes Constitutional: Positive: Negative - no fever in 6 days Skin: Positive: Negative Eyes: Positive: Negative ENT: Positive: Nasal Discharge, Sinus Congestion. Negative: Sore Throat, Sinus Pain/Tenderness Respiratory: Positive: Cough - productive yellow phlegm.. Negative: Shortness Of Breath Gastrointestinal: Negative: Abdominal Pain, Vomiting, Diarrhea, Nausea Genitourinary: Positive: Negative Motor: Positive: Negative Neurovascular: Positive: Negative Musculoskeletal: Positive: Negative Neurological: Positive: Negative Psychological: Positive: Negative Is Patient Immunocompromised?: No Physical Exam Triage Information Reviewed: Yes Appearance: Well-Appearing, Well-Nourished Vital Signs: Initial Vital Signs Temp 97.6 F 04/26/19 13:24 Pulse 71 04/26/19 13:24 Resp 16 04/26/19 13:24 BP 99/69 04/26/19 13:24 Pulse Ox 100 04/26/19 13:24 Eyes: Positive: Conjunctiva Clear ENT: Positive: Normal ENT inspection Neck: Positive: Supple, Nontender, No Lymphadenopathy Respiratory: Positive: Lungs clear, Normal breath sounds. Negative: Respiratory distress, Crackles, Rhonchi, Wheezing Cardiovascular: Positive: RRR, No Murmur, Brisk Capillary Refill Abdomen Description: Positive: Nontender, Soft Musculoskeletal Exam: Normal Neurological Exam: Normal Psychological Exam: Normal Skin: Positive: Rashes - slight circular rash left neck. Respiratory Course/Dx - Course Course Of Treatment: Instructed to monitor slight rash on left side of neck for increase in size ( possible ringworm). If it progresses, will apply otc antifungal cream bid. - Differential Dx/Diagnosis Differential Diagnosis/HQI/PQRI: Sinusitis Provider Diagnosis: Acute bronchitis Discharge ED - Sign-Out/Discharge Documenting (check all that apply): Patient Departure All imaging exams completed and their final reports reviewed: No Studies - Discharge Plan Condition: Stable Disposition: HOME Prescriptions: Benzonatate CAP* [Tessalon 100 MG CAP*] 100 mg PO TID PRN #30 cap PRN Reason: Cough DOXYcycline CAP(*) [DOXYcycline 100MG CAP(*)] 100 mg PO BID 10 Days #20 cap Patient Education Materials: Acute Bronchitis (ED) Referrals: Dom Singh MD [Primary Care Provider] - Additional Instructions: Take medication as prescribed. If your symptoms persist or worsen, follow-up with our primary care physician. - Billing Disposition and Condition Condition: STABLE Disposition: Home
== END 2019-04-26 14:02 | disposition home or self-care (01) ==
LOC: UCCORT 12:45
DX: J20.9 Acute bronchitis, unspecified (principal); R21 Rash and other nonspecific skin eruption; E11.9 Type 2 diabetes mellitus without complications; R00.2 Palpitations; Z79.82 Long term (current) use of aspirin; Z79.899 Other long term (current) drug therapy; Z88.2 Allergy status to sulfonamides; Z88.1 Allergy status to other antibiotic agents
CPT/HCPCS: 99212; G0463

== ENCOUNTER 2019-08-29 11:20 | Emergency (ER) | payer OTHER ==
--- OUTSIDE RECORDS SUMMARY | 2019-08-29 11:35 | XMS REPORT | Continuity of Care Document ---
:1975 External Reference #:[id number] Author Name Asia Loyola PA (transmitted by agent of provider Presley Lomeli) Address [address], [address] [place] [address] Care Team Providers Name Role Phone Dom Singh M.D. - Family Medicine Care Team Information Freight [employer]cker [phone] Dom Singh M.D. 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 Onset: 02/10/2018 Kidney stone Katiana Carranza M.D. Onset: 02/10/2018 Social History Type Date Description Comments Sex Unknown Tobacco Use Start: Unknown Never Smoked Cigarettes Smoking Status Reviewed: 05/26/18 Never Smoked Cigarettes ETOH Use Denies alcohol use Tobacco Use Start: Unknown Patient denies history of smoking Recreational Drug Use Denies Drug Use Allergies, Adverse Reactions, Alerts Active Allergies Reaction Severity Comments Date Levaquin 07/30/2017 Keflex 07/30/2017 Medications Active Medications SIG Qnty Indications Ordering Provider Date Aspirin Adult Low 1 by mouth every 30tabs Rudy, 08/15/2017 Dose day DO Hu 81mg Tablets Metoprolol Succinate 1 by mouth every 90tabs Presley Lomeli ER day Ace Rockwell, FACC 25mg Tablets ER 24HR Novolog Inject 100 Units Unknown 100Unit/ML SC qd Solution Epipen 2-Tonio use as directed Unknown as needed for 0.3mg/0.3ML Solution allergic reaction Auto-Inject Zyrtec Allergy 1 tab by mouth Unknown 10mg twice every day Tablets Immunizations Description No Information Available Vital Signs Date Vital Result Comment 08/28/2019 3:14pm BP Systolic Sitting Left Arm 120 mmHg BP Diastolic Sitting Left Arm 78 mmHg Heart Rate 100 /min Respiratory Rate 18 /min Height 64 inches 5'4" Weight 221.00 lb BMI (Body Mass Index) 37.9 kg/m2 BSA (Body Surface Area) 2.04 m2 [place] body weight in kilograms 54 kg O2 % BldC Oximetry 99 % 01/07/2019 1:27pm BP Systolic Sitting Right Arm 112 mmHg BP Diastolic Sitting Right Arm 66 mmHg Heart Rate 82 /min Respiratory Rate 21 /min Height 64 inches 5'4" Weight 227.00 lb BMI (Body Mass Index) 39.0 kg/m2 BSA (Body Surface Area) 2.06 m2 [place] body weight in kilograms 54 kg O2 % BldC Oximetry 98 % Results Description No Information Available Procedures Date Code Description Status 08/28/2019 43473 EKG-Tracing And Report Completed Medical Devices Description No Information Available Encounters Type Date Location Provider Dx Diagnosis Office Visit 08/28/2019 Cardiology Office Asia Loyola R07.9 Chest pain , 3:00p B., PA unspecified I42.8 Other cardiomyopathies R00.2 Palpitations R00.1 Bradycardia, unspecified E11.65 Type 2 diabetes mellitus with hyperglycemia Assessments Date Code Description Provider 08/28/2019 R07.9 Chest pain, unspecified Asia Loyola PA 08/28/2019 I42.8 Other cardiomyopathies Asia Loyola, BERRY 08/28/2019 R00.2 Palpitations Asia Loyola PA 08/28/2019 R00.1 Bradycardia, unspecified Asia Loyola, PA 08/28/2019 E11.65 Type 2 diabetes mellitus with hyperglycemia Asia Loyola, BERRY 07/13/2019 R07.9 Chest pain, unspecified Cornell Swanson MD Plan of Treatment Future Appointment(s):10/02/2019 2:00 pm - Asia Loyola, PA at [facility]/28/2019 - Asia Loyola, PAR07.9 Chest pain, unspecifiedNew Orders:Echocardiogram, Exercise Stress, Ordered: 08/28/19Comments :Will pursue stress echocardiogram to assess her ischemic potential.I42.8 Other cardiomyopathiesComments:Monitor.R00.2 PalpitationsNew Orders:7 Day Cardiac Event Monitor, Ordered: 08/28/19Overnight Oximetry, Ordered: 08/28/19Comments: She will wear a 1 week EM to evaluate for dysrhythmias. I will also screen her for CECILIO with overnight oximetry.R00.1 Bradycardia, unspecifiedNew Orders:7 Day Cardiac Event Monitor, Ordered: 08/28/19Comments:As above.E11.65 Type 2 diabetes mellitus with hyperglycemiaComments:Would prefer statin for endothelial stabilization. Will obtain recent OV and labs from [facility].AllFollow up:Follow up after testing completed Please obtain last records from [place] Functional Status Functional Condition Comment Date Status Independent with all ADL's Active Mental Status Description No Information Available Referrals Description No Information Available
[2019-08-29 13:17] VITALS: BP 95/69
--- NOTE | 2019-08-29 14:31 | UC ---
Throat Pain/Nasal Karlos HPI - HPI Summary HPI Summary: 43-year-old female who has had head congestion and cold symptoms for proximally 2 weeks and now with sinus pressure, postnasal drainage. She does have a feeling of swelling to the left side of her neck with soreness when she turns her head to the right. She denies any difficulty breathing and states occasionally she will feel like she has difficulty swallowing, which she defines as pain in the left side of her neck when she swallows. - History of Current Complaint Chief Complaint: UCRespiratory Stated Complaint: NECK SWELLING, CONGESTION Time Seen by Provider: 08/29/19 13:39 Hx Obtained From: Patient Hx Last Menstrual Period: hysterctomy 10/08/17 ?: No Onset/Duration: Gradual Onset, Lasting Weeks Severity: Mild Pain Intensity: 3 Cough: Nonproductive Associated Signs & Symptoms: Negative: Hoarseness, Fever - Allergies/Home Medications Allergies/Adverse Reactions: Allergies Allergy/AdvReac Type Severity Reaction Status Date / Time levofloxacin Allergy Hives Verified 08/29/19 13:12 cephalexin AdvReac Vomiting Verified 08/29/19 13:12 Sulfa (Sulfonamide AdvReac Vomiting Verified 08/29/19 13:12 Antibiotics) Home Medications: Home Medications Insulin Aspart [Novolog 100 UNITS/ML 10 ML VIAL] 100 unit SC SEE INSTRUCTIONS [History Confirmed 08/29/19] Cetirizine* [ZyrTEC 10 MG TAB*] 10 mg PO BID 09/28/18 [History Confirmed ] Aspirin [Aspir-Low] 81 mg PO DAILY 04/26/19 [History Confirmed 08/29/19] hydrOXYzine HCL TAB* [Atarax 25 MG TAB*] 25 mg PO TID PRN 04/26/19 [History Confirmed 08/29/19] Amoxicillin PO (*) [Amoxicillin 875 MG (*)] 875 mg PO BID 10 Days #20 tab [Rx] Metoprolol Succinate XL TAB* [Toprol XL TAB*] 25 mg PO DAILY 08/29/19 [History Confirmed 08/29/19] Tobramycin 0.3% OPHTH.RAFA* 1 drop RIGHT EYE Q4H 7 Days #1 btl 08/29/19 [Rx] PMH/Surg Hx/FS Hx/Imm Hx Previously Healthy: Yes Cardiovascular History: Congestive Heart Failure GI/ History: Other - Ulcerative colitis - Surgical History Surgical History: Yes Surgery Procedure, Year, and Place: , gallbladder removal, stents in her kidney for stones. TONSILECTOMY. PARATHYROIDECTOMY--2004, hysterctomy 2017, [facility] 08/2017 - Family History Known Family History: Positive: Diabetes, Blood Disorder - several members with factor V Leiden Negative: Cardiac Disease, Hypertension - Social History Alcohol Use: None Substance Use Type: None Smoking Status (MU): Never Smoked Tobacco - Immunization History Vaccination Up to Date: Yes Review of Systems All Other Systems Reviewed And Are Negative: Yes ENT: Positive: Nasal Discharge, Sinus Congestion, Sinus Pain/Tenderness Musculoskeletal: Positive: Other: - Mild left-sided neck pain. Is Patient Immunocompromised?: No Physical Exam Triage Information Reviewed: Yes Appearance: Well-Appearing, No Pain Distress, Well-Nourished Vital Signs: Initial Vital Signs Temp 98.3 F 08/29/19 13:09 Pulse 76 08/29/19 13:09 Resp 18 08/29/19 13:09 BP 95/69 08/29/19 13:09 Pulse Ox 99 08/29/19 13:09 Vital Signs Reviewed: Yes Eyes: Positive: Conjunctiva Clear ENT: Positive: Hearing grossly normal, Pharynx normal - Yellow postnasal drainage., Nasal congestion, Nasal drainage - Yellow nasal coryza, TMs normal, Sinus tenderness - Tender over the maxillary sinuses bilaterally, Uvula midline. Negative: Tonsillar swelling, Tonsillar exudate, Trismus, Muffled voice, Hoarse voice Neck: Positive: Supple, Nontender, No Lymphadenopathy, Other: - Mild soreness to the left sternocleidomastoid muscle, no swelling, erythema, deformity or bruising is noted. Patient can replicate the soreness when she turns her head to the right. Respiratory: Positive: Lungs clear, Normal breath sounds, No respiratory distress, No accessory muscle use Cardiovascular: Positive: RRR, No Murmur, Pulses Normal, Brisk Capillary Refill Musculoskeletal Exam: Normal Neurological Exam: Normal Psychological Exam: Normal Skin Exam: Normal Throat Pain/Nasal Course/Dx - Course Course Of Treatment: Soft tissue neck:FINDINGS: SOFT TISSUES: The prevertebral soft tissues are normal. BONES: No osseous abnormalities are noted. AIRWAY: There is a continuous air column from the pharynx to the trachea. The aryepiglottic folds are normal. The epiglottis is normal. OTHER: The lung apices are clear. The skull base is unremarkable. There is no radiopaque foreign body. IMPRESSION: UNREMARKABLE RADIOGRAPHS OF THE NECK. NO RADIOPAQUE FOREIGN BODY. THERE IS CONTINUOUS AIR COLUMN FROM THE PHARYNX TO THE TRACHEA. The patient is comfortable here and in no distress. I'm going to treat her for sinus infection and she is to follow-up with her primary care provider if no improvement in 5-7 days. If she has any difficulty swallowing or worsening symptoms she is to go to the ER. - Differential Dx/Diagnosis Provider Diagnosis: Sinusitis Discharge ED - Sign-Out/Discharge Documenting (check all that apply): Patient Departure All imaging exams completed and their final reports reviewed: Yes - Discharge Plan Condition: Good Disposition: HOME Prescriptions: Amoxicillin PO (*) [Amoxicillin 875 MG (*)] 875 mg PO BID 10 Days #20 tab Tobramycin 0.3% OPHTH.RAFA* 1 drop RIGHT EYE Q4H 7 Days #1 btl Patient Education Materials: Sinusitis (ED), Conjunctivitis (ED) Referrals: Dom Singh MD [Primary Care Provider] - Additional Instructions: Increase fluids, follow-up with your primary care provider if no improvement in 3 or 4 days. - Billing Disposition and Condition Condition: GOOD Disposition: Home
== END 2019-08-29 14:41 | disposition home or self-care (01) ==
LOC: UCCORT 11:20
DX: J32.9 Chronic sinusitis, unspecified (principal); M54.2 Cervicalgia; I50.9 Heart failure, unspecified; K51.90 Ulcerative colitis, unspecified, without complications; Z88.2 Allergy status to sulfonamides; Z88.1 Allergy status to other antibiotic agents; Z79.82 Long term (current) use of aspirin
CPT/HCPCS: 70360; 99212; G0463